=== PATIENT | female | born 1935 | race African-American/Black ===

== ENCOUNTER 2017-07-02 05:41 | Emergency (ER) | payer MEDICARE, OTHER ==
[~2017-07-02] VITALS: Ht 152.4 cm; Wt 50.3 kg
[~2017-07-02 05:41] MED LIST: ACET325T16 PO; BYSTOLIC10 MG PO; CLIN150C14 PO; DOCU100C28 PO; ESTR42.53 VG; FLUT16SP NS; HYDR-2762 PO; HYDR-2867 PO; HYDR-971 PO; HYDR10SY16 PO; HYDR10TA2 PO; LEVO500T8 PO; LEVO75TA PO; LIDO5JEL3 TP; LINA145C PO; LISI10TA2 PO; LORA10TA68 PO; LUBI8CAP4 PO; METR500T8 PO; NIFE90TA PO; NIFE90TA9 PO; OMEP20TA8 PO; ONDA4TAB7 PO; OXYC1TAB8 PO; POLY17PO3 PO; POTA10TA12 PO; PSYL1PAC7 PO; SENN1TAB61 PO; TAMO20TA PO
[2017-07-02 06:17] LABS: BILIRUBIN,URINE NEGATIVE (NEG); GLUCOSE,URINE NEGATIVE (NEG); NITRITE,URINE NEGATIVE (NEG); PH,URINE 7.5; PROTEIN,URINE NEGATIVE (NEG-TRACE); UROBILINOGEN,URINE 0.2 mg/dL (0.2 mg/dL)
[2017-07-02] MEDS ORDERED: fentaNYL PF VIAL 100 MCG/2 ML VIAL ONE (06:22)
[2017-07-02] MEDS ORDERED: ONDANSETRON PF 4 MG/2 ML VIAL. ONE (06:22)
--- NOTE | 2017-07-02 06:23 | PHYS DOC ---
Past Medical History Past Medical History: Arthritis, Cancer, Constipation, Hypertension Additional Past Medical Histor: IRREGULAR HEARTBEAT, PROLAPSED BLADDER, ULCERS , THYROID DZ Past Surgical History: Other Additional Past Surgical Histo: PARTIAL HYSTERECTOMY, RECENT BLADDER SLING SURGERY, L BREAST MASTECTOMY Alcohol Use: None Drug Use: None Adult General Chief Complaint Chief Complaint: MULTIPLE COMPLAINTS HPI HPI Patient is a 82 year old female presenting to the emergency department for primary complaints of rectal pain and lower abdominal pain. She says that she has had several hard large bowel movements past several days now her rectum is quite sore. She says that she thinks she tore something that she has not seen any blood in her stool. He says that she has lower abdominal pain with dysuria and thinks that she has a urinary tract infection. There is been no fevers chills nausea vomiting. She says that she will not allow me to examine her rectum. I was able to convince her to let me look externally but she would not allow me to do a proper rectal exam. Looking through the records it appears that she had a fecal impaction in January 2016 that required operating room disimpaction. Patient is in no obvious distress with normal vital signs. Review of Systems Review of Systems Constitutional: Denies fever or chills [] Respiratory: Denies cough or shortness of breath [] Cardiovascular: No additional information not addressed in HPI [] GI: + abdominal pain. No nausea, vomiting, bloody stools or diarrhea [] : Denies dysuria or hematuria [] Musculoskeletal: Denies back pain or joint pain [] Integument: Denies rash or skin lesions [] Neurologic: Denies headache, focal weakness or sensory changes [] Current Medications Current Medications Current Medications Medications (Trade) Dose Ordered Sig/[facility] Start Time Stop Time Status Last Admin Dose Admin Fentanyl Citrate (Fentanyl 2ml Vial) 100 mcg STK-MED ONCE 07/02/17 06:22 07/02/17 06:23 DC Glycerin (Sani-Supp Adult) 1 supp 1X ONCE 07/02/17 08:00 07/02/17 08:01 DC 07/02/17 08:13 1 SUPP Info (Do NOT chart on this entry -- for MONITORING) 1 each PRN DAILY PRN 07/02/17 06:30 07/04/17 06:29 Iohexol (Omnipaque 300 Mg/ml) 75 ml 1X ONCE 07/02/17 07:00 07/02/17 07:01 DC 07/02/17 07:13 75 ML Lidocaine HCl (Glydo (Lidocaine) Jelly) 1 kalyan 1X ONCE 07/02/17 08:00 07/02/17 08:01 DC 07/02/17 08:12 1 KALYAN Ondansetron HCl (Zofran) 4 mg STK-MED ONCE 07/02/17 06:22 07/02/17 06:23 DC Sodium Chloride 1,000 ml @ 1,000 mls/hr 1X ONCE 07/02/17 07:00 07/02/17 07:59 DC 07/02/17 06:26 1,000 MLS/HR Allergies Allergies Allergies Coded Allergies Type Severity Reaction Last Updated Verified amoxicillin trihydrate Allergy Intermediate Hives 01/23/16 Yes metronidazole Allergy Intermediate Nausea and Vomiting 01/23/16 Yes potassium clavulanate Allergy Intermediate Hives 01/23/16 Yes ranitidine Allergy Intermediate 07/02/17 Yes Physical Exam Physical Exam Constitutional: Well developed, well nourished, no acute distress, non-toxic appearance. [] Neck: Normal range of motion, no tenderness, supple, no stridor. [] Cardiovascular:Heart rate regular rhythm, no murmur [] Lungs & Thorax: Bilateral breath sounds clear to auscultation [] Abdomen: Bowel sounds normal, soft, diffuse lower abd tenderness, no rebound or guarding, no masses, no pulsatile masses. External rectal exam revealed no obvious anal fissure. Skin: Warm, dry, no erythema, no rash. [] Back: No tenderness, no CVA tenderness. [] Extremities: No tenderness, no cyanosis, no clubbing, ROM intact, no edema. [] Neurologic: Alert and oriented X 3, normal motor function, normal sensory function, no focal deficits noted. [] Current Patient Data Vital Signs Vital Signs Date Time Temp Pulse Resp B/P (MAP) Pulse Ox O2 Delivery O2 Flow Rate FiO2 07/02/17 08:24 57 21 175/81 (112) 97 Room Air 07/02/17 06:00 98.1 98.1 Lab Values Laboratory Tests Test 07/02/17 06:00 07/02/17 06:20 Urine Collection Type Unknown Urine Color Yellow Urine Clarity Clear Urine pH 7.5 Urine Specific [place] 1.020 Urine Protein Negative mg/dL (NEG-TRACE) Urine Glucose (UA) Negative mg/dL (NEG) Urine Ketones (Stick) Negative mg/dL (NEG) Urine Blood Negative (NEG) Urine Nitrite Negative (NEG) Urine Bilirubin Negative (NEG) Urine Urobilinogen Dipstick 0.2 mg/dL (0.2 mg/dL) Urine Leukocyte Esterase Negative (NEG) Urine RBC 1-2 /HPF (0-2) Urine WBC 1-4 /HPF (0-4) Urine Squamous Epithelial Cells Mod /LPF Urine Bacteria Few /HPF (0-FEW) Urine Mucus Slight /LPF White Blood Count 5.6 x10^3/uL (4.0-11.0) Red Blood Count 3.67 x10^6/uL (3.50-5.40) Hemoglobin 11.0 g/dL (12.0-15.5) L Hematocrit 33.7 % (36.0-47.0) L Mean Corpuscular Volume 92 fL (79-100) Mean Corpuscular Hemoglobin 30 pg (25-35) Mean Corpuscular Hemoglobin Concent 33 g/dL (31-37) Red Cell Distribution Width 14.8 % (11.5-14.5) H Platelet Count 199 x10^3/uL (140-400) Neutrophils (%) (Auto) 63 % (31-73) Lymphocytes (%) (Auto) 26 % (24-48) Monocytes (%) (Auto) 10 % (0-9) H Eosinophils (%) (Auto) 1 % (0-3) Basophils (%) (Auto) 1 % (0-3) Neutrophils # (Auto) 3.5 x10^3uL (1.8-7.7) Lymphocytes # (Auto) 1.4 x10^3/uL (1.0-4.8) Monocytes # (Auto) 0.6 x10^3/uL (0.0-1.1) Eosinophils # (Auto) 0.0 x10^3/uL (0.0-0.7) Basophils # (Auto) 0.0 x10^3/uL (0.0-0.2) Prothrombin Time 14.0 SEC (11.7-14.0) Prothrombin Time INR 1.2 (0.8-1.1) H PTT 28 SEC (24-38) Sodium Level 142 mmol/L (136-145) Potassium Level 5.6 mmol/L (3.5-5.1) H Chloride Level 104 mmol/L (98-107) Carbon Dioxide Level 31 mmol/L (21-32) Anion Gap 7 (6-14) Blood Urea Nitrogen 14 mg/dL (7-20) Creatinine 0.7 mg/dL (0.6-1.0) Estimated GFR (Cockcroft-Gault) 97.4 BUN/Creatinine Ratio 20 (6-20) Glucose Level 92 mg/dL (70-99) Calcium Level 9.4 mg/dL (8.5-10.1) Magnesium Level 2.0 mg/dL (1.8-2.4) Total Bilirubin 0.5 mg/dL (0.2-1.0) Aspartate Amino Transferase (AST) 35 U/L (15-37) Alanine Aminotransferase (ALT) 13 U/L (14-59) L Alkaline Phosphatase 35 U/L (46-116) L Total Protein 7.5 g/dL (6.4-8.2) Albumin 3.9 g/dL (3.4-5.0) Albumin/Globulin Ratio 1.1 (1.0-1.7) Laboratory Tests 07/02/17 06:20 Laboratory Tests 07/02/17 06:20 EKG EKG [] Radiology/Procedures Radiology/Procedures CT of the abdomen and pelvis with contrast, 07/02/2017: History: Rectal pain after bowel movement Multidetector CT imaging was performed following an IV bolus injection of iodinated contrast material. No oral contrast material was administered for this study. Comparison is made to a study from 10/27/2015. There are unchanged small cysts in both lobes of the liver. The gallbladder is unremarkable. No bile duct dilatation is seen. There is a paucity of intra-abdominal fat the abdominal organs. No pancreatic abnormality is detected. The spleen is of normal size. No renal abnormality is detected. There is moderate calcific plaquing of the abdominal aorta and its branches including the coronary arteries. There is no evidence of aortic aneurysm. No abdominal or pelvic adenopathy is seen. The bowel loops are not dilated. There is a small hiatal hernia. No free air or free fluid is evident in the abdomen or pelvis. There are moderate multilevel degenerative changes in the spine. There is a mild spondylolisthesis at L3-4 due to facet joint arthropathy. IMPRESSION: 1. Miscellaneous chronic findings as described above. 2. No acute abdominal or pelvic abnormality is detected. PQRS Compliance Statement: One or more of the following individualized dose reduction techniques were utilized for this examination: 1. Automated exposure control 2. Adjustment of the mA and/or kV according to patient size 3. Use of iterative reconstruction technique DICTATED and SIGNED BY: JOHN FREEMAN MD DATE: 07/02/17804 Course & Med Decision Making Course & Med Decision Making Patient with nonspecific lower abdominal pain and constipation. Given her age will go ahead and do a CT to ensure there is no acute emergencies. Patient's workup showed no acute emergency. She is not obstructed clinically as she says she is still having BMs, gave her glycerine here and then will DC with anusol suppository as she may have internal hemorrhoid causing pain. She wants norco for her joints. Said she needs to take miralax if she is taking norco. Patient aware and agreeable with plan for DC and verbalized understanding of need or f/u(appt tomorrow with PCP) and strict ED return precautions discussed including worsening pain, fevers, vomiting, or other general concerns. Dragon Disclaimer Dragon Disclaimer This electronic medical record was generated, in whole or in part, using a voice recognition dictation system. Departure Departure Impression: Primary Impression: Fecal impaction Additional Impressions: Abdominal pain Constipation Referrals: WILBER TIERNEY MD (PCP) Patient Instructions: Constipation, Adult Additional Instructions: TAKE MIRALAX IF YOU ARE TAKING THE NORCO. FOLLOW WITH YOUR DOCTOR TOMORROW. THANK YOU! Scripts Hydrocodone/Apap 5-325 (NORCO 5-325 TABLET) 1 Each Tablet 1 TAB PO PRN Q6HRS Y for PAIN, #12 TAB 0 Refills Prov: ANIYAH PARSONS DO 07/02/17 Hydrocortisone Acetate (ANUSOL-HC) 25 Mg Supp.rect 1 SUPP RC BID, #6 SUPP Prov: ANIYAH PARSONS DO 07/02/17 Problem Qualifiers ANIYAH PARSONS DO Jul 02, 2017 06:23
[2017-07-02 06:26] LABS: BACTERIA,URINE FEW /HPF (0-FEW)
[2017-07-02 06:27] LABS: SQUAMOUS EPITHELIAL CELL,UR MOD /LPF
[2017-07-02 06:29] LABS: BASO % 1 % (0-3); EOS % 1 % (0-3); HEMATOCRIT 33.7 % (36.0-47.0); LYMPH # 1.4 x10^3/uL (1.0-4.8); LYMPH % 26 % (24-48); MEAN CORPUSCULAR HEMOGLOBIN 30 pg (25-35); MEAN CORPUSCULAR HGB CONC 33 g/dL (31-37); MEAN CORPUSCULAR VOLUME 92 fL (79-100); MONO % 10 % (0-9); NEUT % 63 % (31-73); PLATELET COUNT 199 x10^3/uL (140-400); RED BLOOD COUNT 3.67 x10^6/uL (3.50-5.40); RED CELL DISTRIBUTION WIDTH 14.8 % (11.5-14.5); WHITE BLOOD COUNT 5.6 x10^3/uL (4.0-11.0)
[2017-07-02] MEDS ORDERED: CONTRAST GIVEN MC PRN (06:30)
[2017-07-02 06:39] LABS: CALCIUM 9.4 mg/dL (8.5-10.1); CREATININE 0.7 mg/dL (0.6-1.0); GFR 97.4
[2017-07-02 06:44] LABS: ALBUMIN 3.9 g/dL (3.4-5.0); ALBUMIN/GLOBULIN RATIO 1.1 (1.0-1.7); TOTAL BILIRUBIN 0.5 mg/dL (0.2-1.0); TOTAL PROTEIN 7.5 g/dL (6.4-8.2)
[2017-07-02 06:50] LABS: INR 1.2 (0.8-1.1)
[2017-07-02 06:51] LABS: POTASSIUM 5.6 mmol/L (3.5-5.1)
[2017-07-02] MEDS ORDERED: IOHEXOL 300 MG/ML 75 ML VIAL IV ONE (07:00)
[2017-07-02] MEDS ORDERED: fentaNYL PF VIAL 100 MCG/2 ML VIAL IV ONE (07:00)
[2017-07-02] MEDS ORDERED: IV NORMAL SALINE 1000ML BAG 1,000 ML IV ONE (07:00)
[2017-07-02] MEDS ORDERED: ONDANSETRON PF 4 MG/2 ML VIAL. IV ONE (07:00)
[2017-07-02] MEDS ORDERED: LIDOCAINE 2% JELLY 6ML IN APPLICATOR. TP ONE (08:00)
[2017-07-02] MEDS ORDERED: GLYCERIN ADULT 1 SUPP.RECT. PR ONE (08:00)
--- NOTE | 2017-07-02 08:14 | RAD ---
CT of the abdomen and pelvis with contrast, 07/02/2017: History: Rectal pain after bowel movement Multidetector CT imaging was performed following an IV bolus injection of iodinated contrast material. No oral contrast material was administered for this study. Comparison is made to a study from 10/27/2015. There are unchanged small cysts in both lobes of the liver. The gallbladder is unremarkable. No bile duct dilatation is seen. There is a paucity of intra-abdominal fat the abdominal organs. No pancreatic abnormality is detected. The spleen is of normal size. No renal abnormality is detected. There is moderate calcific plaquing of the abdominal aorta and its branches including the coronary arteries. There is no evidence of aortic aneurysm. No abdominal or pelvic adenopathy is seen. The bowel loops are not dilated. There is a small hiatal hernia. No free air or free fluid is evident in the abdomen or pelvis. There are moderate multilevel degenerative changes in the spine. There is a mild spondylolisthesis at L3-4 due to facet joint arthropathy. IMPRESSION: 1. Miscellaneous chronic findings as described above. 2. No acute abdominal or pelvic abnormality is detected. PQRS Compliance Statement: One or more of the following individualized dose reduction techniques were utilized for this examination: 1. Automated exposure control 2. Adjustment of the mA and/or kV according to patient size 3. Use of iterative reconstruction technique
[2017-07-02] MEDS ORDERED: HYDR25SU18 RC (08:35)
[2017-07-02] MEDS ORDERED: HYDR-971 PO (08:35)
[2017-07-02 09:25] VITALS: BP 193/95
== END 2017-07-02 10:35 | disposition home or self-care (01) ==
LOC: ER 05:41
DX: K56.41 Fecal impaction (principal); M19.90 Unspecified osteoarthritis, unspecified site; I10 Essential (primary) hypertension; E07.9 Disorder of thyroid, unspecified; Z90.711 Acquired absence of uterus with remaining cervical stump; Z90.12 Acquired absence of left breast and nipple; Z88.1 Allergy status to other antibiotic agents; Z88.8 Allergy status to other drugs, medicaments and biological substances
CPT/HCPCS: 36415; 74177; 80053; 81001; 83735; 85025; 85610; 85730; 96361; 96374; 96375; 99285; J2405; J3010; J7030; Q9967

== ENCOUNTER 2018-10-10 03:14 | Emergency (ER) | payer MEDICARE, OTHER ==
[~2018-10-10] VITALS: Ht 154.9 cm; Wt 47.6 kg
[~2018-10-10 03:14] MED LIST changes: -HYDR-2762 PO; +HYDR-2765 PO; +HYDR-3164 PO; -HYDR-971 PO; +HYDR25SU18 RC; +METR-84 PO; -METR500T8 PO; +POLY17PO28 PO; -POLY17PO3 PO
[2018-10-10] MEDS ORDERED: MORPHINE SULFATE 4 MG/ML VIAL. IM ONE (04:30)
[2018-10-10 05:05] LABS: BILIRUBIN,URINE NEGATIVE (NEG); CLARITY,URINE CLEAR; COLOR,URINE YELLOW; NITRITE,URINE NEGATIVE (NEG); PH,URINE 7.5; PROTEIN,URINE NEGATIVE (NEG-TRACE); UROBILINOGEN,URINE 0.2 mg/dL (0.2 mg/dL)
[2018-10-10] MEDS ORDERED: HYDR25SU18 RC (05:08)
[2018-10-10] MEDS ORDERED: HYDR-3164 PO (05:08)
[2018-10-10 05:17] LABS: BACTERIA,URINE FEW /HPF (0-FEW); RBC,URINE OCC /HPF (0-2); WBC,URINE OCC /HPF (0-4)
[2018-10-10 05:18] LABS: SQUAMOUS EPITHELIAL CELL,UR FEW /LPF
[2018-10-10] MEDS ORDERED: amLODIPine BESYLATE 5 MG TABLET PO ONE (05:30)
[2018-10-10 05:36] VITALS: BP 222/92
--- NOTE | 2018-10-10 05:43 | PHYS DOC ---
Past Medical History Past Medical History: Arthritis, Cancer, Constipation, Hypertension Additional Past Medical Histor: IRREGULAR HEARTBEAT, PROLAPSED BLADDER, ULCERS , THYROID DZ Past Surgical History: Other Additional Past Surgical Histo: PARTIAL HYSTERECTOMY, RECENT BLADDER SLING SURGERY, L BREAST MASTECTOMY Alcohol Use: None Drug Use: None Adult General Chief Complaint Chief Complaint: HEMORRHOIDS HPI HPI Patient is a 83 year old female who is presenting with rectal pain as well as constipation. She says that she has little balls of stool that come out she says that in addition she's been having back pain and hip pain for the last several months but is slowly getting worse she takes pain medication she takes stool softener she has had rectal pain and a long-standing basis over she was worried about the small balls of stool. No vomiting no abdominal pain just the pain in the rectal area. She does have a history of a fecal impaction that required exam under anesthesia she also has a history of a cystocele that was treated surgically Review of Systems Review of Systems Constitutional: Denies fever or chills [] Eyes: Denies change in visual acuity, redness, or eye pain [] HENT: Denies nasal congestion or sore throat [] Respiratory: Denies cough or shortness of breath [] Integument: Denies rash or skin lesions [] All other systems were reviewed and found to be within normal limits, except as documented in this note. Current Medications Current Medications Current Medications Medications (Trade) Dose Ordered Sig/Taj Start Time Stop Time Status Last Admin Dose Admin Amlodipine Besylate (Norvasc) 10 mg 1X ONCE 10/10/18 05:30 10/10/18 05:31 DC 10/10/18 05:36 10 MG Morphine Sulfate (Morphine Sulfate) 4 mg 1X ONCE 10/10/18 04:30 10/10/18 04:31 DC 10/10/18 04:09 4 MG Allergies Allergies Allergies Coded Allergies Type Severity Reaction Last Updated Verified amoxicillin trihydrate Allergy Intermediate Hives 01/23/16 Yes metronidazole Allergy Intermediate Nausea and Vomiting 01/23/16 Yes potassium clavulanate Allergy Intermediate Hives 01/23/16 Yes ranitidine Allergy Intermediate 07/02/17 Yes Physical Exam Physical Exam Constitutional: Well developed, well nourished, no acute distress, non-toxic appearance. [] HENT: Normocephalic, atraumatic, bilateral external ears normal, oropharynx moist, no oral exudates, nose normal. [] Eyes: PERRLA, EOMI, conjunctiva normal, no discharge. [] Neck: Normal range of motion, no tenderness, supple, no stridor. [] Pulmonary: Normal respiratory effort no increased work of breathing no obvious chest wall trauma Abdomen: Bowel sounds normal, soft, no tenderness, no masses, no pulsatile masses. [] Rectal exam: There was some abnormal external anal anatomy some decreased landmarks noted. After IM morphine patient consented to a rectal examination and I did perform this it was somewhat difficult due to patient cooperation however I did not appreciate any significant fecal impaction there may have been a palpable internal hemorrhoid it was a difficult exam overall. Skin: Warm, dry, no erythema, no rash. [] Back: Diffuse tenderness throughout no step-off or focal finding Extremities: No tenderness, no cyanosis, no clubbing, ROM intact, 2+ edema noted Neurologic: Alert and oriented X 3, normal motor function, normal sensory function, no focal deficits noted. [] Psychologic: Affect normal, judgement normal, mood normal. [] Current Patient Data Vital Signs Vital Signs Date Time Temp Pulse Resp B/P (MAP) Pulse Ox O2 Delivery O2 Flow Rate FiO2 10/10/18 05:36 125 222/92 10/10/18 04:09 20 10/10/18 03:15 98.0 96 Room Air 98.0 Lab Values Laboratory Tests Test 10/10/18 04:31 Urine Collection Type Unknown Urine Color Yellow Urine Clarity Clear Urine pH 7.5 Urine Specific [place] <=1.005 Urine Protein Negative mg/dL (NEG-TRACE) Urine Glucose (UA) Negative mg/dL (NEG) Urine Ketones (Stick) Negative mg/dL (NEG) Urine Blood Negative (NEG) Urine Nitrite Negative (NEG) Urine Bilirubin Negative (NEG) Urine Urobilinogen Dipstick 0.2 mg/dL (0.2 mg/dL) Urine Leukocyte Esterase Negative (NEG) Urine RBC Occ /HPF (0-2) Urine WBC Occ /HPF (0-4) Urine Squamous Epithelial Cells Few /LPF Urine Bacteria Few /HPF (0-FEW) EKG EKG [] Radiology/Procedures Radiology/Procedures [] Course & Med Decision Making Course & Med Decision Making Pertinent Labs and Imaging studies reviewed. (See chart for details) []Patient had frequent urination the emergency room the bladder scan did show just a small amount of urine remaining approximately 150 ML I don't think that this is enough for Glynn catheter. No fecal impaction was identified on my emergency room rectal examination. The patient did have high blood pressure I gave her dose of amlodipine in the ER this was likely pain related I recommended that she follow-up with her doctor within 1 week to check this again. I will give her prescription for Anusol in case of an internal hemorrhoid which is a possibility she wanted some more pain medications were given her a few days' worth of [place] as well and I recommended that she continue her stool softeners 2. At this point time I think that she has had recurrent visits for various types of rectal pain is likely subacute issue no obvious acute emergency was identified otherwise I don't think that she needs imaging at this time her abdomen was nontender Dragon Disclaimer Dragon Disclaimer This electronic medical record was generated, in whole or in part, using a voice recognition dictation system. Departure Departure Impression: Primary Impression: Elevated blood pressure reading Additional Impression: Constipation Disposition: 01 HOME, SELF-CARE Condition: STABLE Patient Instructions: Constipation, Adult Scripts Hydrocortisone Acetate (ANUSOL-HC) 25 Mg Supp.rect 1 SUPP RC BID, #14 SUPP Prov: EVANGELINA MOROCHO MD 10/10/18 Hydrocodone/Apap 5-325 (NORCO 5-325 TABLET) 1 Each Tablet 1-2 EACH PO PRN Q6HRS PRN for PAIN, #15 as needed for pain Prov: EVANGELINA MOROCHO MD 10/10/18 Problem Qualifiers EVANGELINA MOROCHO MD Oct 10, 2018 05:43
== END 2018-10-10 05:43 | disposition home or self-care (01) ==
LOC: ER 03:14
DX: K59.00 Constipation, unspecified (principal); I10 Essential (primary) hypertension; M19.90 Unspecified osteoarthritis, unspecified site; Z90.710 Acquired absence of both cervix and uterus; Z90.10 Acquired absence of unspecified breast and nipple; Z88.1 Allergy status to other antibiotic agents; Z88.8 Allergy status to other drugs, medicaments and biological substances
CPT/HCPCS: 81001; 96372; 99283; J2270

== ENCOUNTER 2018-12-22 17:34 | Inpatient (IN) | payer MEDICARE, OTHER ==
[~2018-12-22] VITALS: Ht 152.4 cm; Wt 52.4 kg
[~2018-12-22 17:34] MED LIST changes: -LINA145C PO; +LINZESS145 MCG PO; +METR-34 PO; -METR-84 PO
[2018-12-22 18:45] LABS: BASO % 0 % (0-3); EOS % 1 % (0-3); HEMATOCRIT 35.1 % (36.0-47.0); HEMOGLOBIN 11.3 g/dL (12.0-15.5); LYMPH # 1.2 x10^3/uL (1.0-4.8); LYMPH % 19 % (24-48); MEAN CORPUSCULAR HEMOGLOBIN 30 pg (25-35); MEAN CORPUSCULAR HGB CONC 32 g/dL (31-37); MEAN CORPUSCULAR VOLUME 92 fL (79-100); MONO # 0.5 x10^3/uL (0.0-1.1); MONO % 8 % (0-9); NEUT # 4.3 x10^3uL (1.8-7.7); NEUT % 72 % (31-73); PLATELET COUNT 234 x10^3/uL (140-400); RED CELL DISTRIBUTION WIDTH 14.3 % (11.5-14.5)
[2018-12-22 18:47] LABS: BILIRUBIN,URINE NEGATIVE (NEG); CLARITY,URINE CLEAR; COLOR,URINE YELLOW; NITRITE,URINE NEGATIVE (NEG); PH,URINE 7.5; PROTEIN,URINE NEGATIVE (NEG-TRACE); UROBILINOGEN,URINE 0.2 mg/dL (0.2 mg/dL)
[2018-12-22 18:51] LABS: BACTERIA,URINE 0 /HPF (0-FEW); RBC,URINE 0 /HPF (0-2); SQUAMOUS EPITHELIAL CELL,UR MOD /LPF; WBC,URINE 0 /HPF (0-4)
[2018-12-22 18:55] LABS: PROTHROMBIN TIME PATIENT 13.4 SEC (11.7-14.0)
[2018-12-22 18:56] LABS: CALCIUM 10.1 mg/dL (8.5-10.1); CREATININE 0.7 mg/dL (0.6-1.0); GFR 97.2; POTASSIUM 4.8 mmol/L (3.5-5.1)
[2018-12-22 19:02] LABS: ALBUMIN 3.8 g/dL (3.4-5.0); TOTAL BILIRUBIN 0.4 mg/dL (0.2-1.0); TOTAL PROTEIN 7.7 g/dL (6.4-8.2)
--- NOTE | 2018-12-22 20:35 | RAD ---
Bilateral lower extremity venous ultrasound: History: Bilateral lower extremity swelling and edema Sonographic evaluation including grayscale, color flow and spectral Doppler analysis of the deep veins of the lower extremities was performed. The femoral and popliteal veins demonstrate normal compressibility and normal responses to distal augmentation maneuvers. Color imaging of those vessels shows no evidence of intraluminal clot. The visualized deep veins in both calves are patent. There is superficial edema in both lower extremities more on the left than on the right IMPRESSION: 1. There is no sonographic evidence of deep vein thrombosis in either lower extremity. 2. Bilateral lower extremity edema. Electronically signed by: Sly Caballero MD (12/22/2018 8:30 PM) [facility]
--- NOTE | 2018-12-22 21:03 | PHYS DOC ---
Past Medical History Past Medical History: Arthritis, Cancer, Constipation, Hypertension, Other Additional Past Medical Histor: IRREGULAR HEARTBEAT, PROLAPSED BLADDER, ULCERS , THYROID DZ Past Surgical History: Other Additional Past Surgical Histo: PARTIAL HYSTERECTOMY,RECENT BLADDER SLING SURGERY,L BREAST MASTECTOMY Alcohol Use: None Drug Use: None Adult General Chief Complaint Chief Complaint: LOWER EXTREMITY EDEMA HPI HPI Patient is a 83 year old [f__sex] who presents with [] Review of Systems Review of Systems Constitutional: Denies fever or chills [] Eyes: Denies change in visual acuity, redness, or eye pain [] HENT: Denies nasal congestion or sore throat [] Respiratory: Denies cough or shortness of breath [] Cardiovascular: No additional information not addressed in HPI [] GI: Denies abdominal pain, nausea, vomiting, bloody stools or diarrhea [] : Denies dysuria or hematuria [] Musculoskeletal: Denies back pain or joint pain [] Integument: Denies rash or skin lesions [] Neurologic: Denies headache, focal weakness or sensory changes [] Endocrine: Denies polyuria or polydipsia [] All other systems were reviewed and found to be within normal limits, except as documented in this note. Current Medications Current Medications Current Medications Medications (Trade) Dose Ordered Sig/Taj Start Time Stop Time Status Last Admin Dose Admin Aspirin (Lima Aspirin) 325 mg 1X ONCE 12/22/18 21:30 12/22/18 21:31 DC 12/22/18 21:34 325 MG Furosemide (Lasix) 40 mg 1X ONCE 12/22/18 21:30 12/22/18 21:31 DC 12/22/18 21:35 40 MG Morphine Sulfate (Morphine Sulfate) 4 mg Q4HRS PRN 12/22/18 21:45 12/23/18 21:44 Allergies Allergies Allergies Coded Allergies Type Severity Reaction Last Updated Verified amoxicillin trihydrate Allergy Intermediate Hives 01/23/16 Yes metronidazole Allergy Intermediate Nausea and Vomiting 01/23/16 Yes potassium clavulanate Allergy Intermediate Hives 01/23/16 Yes ranitidine Allergy Intermediate 07/02/17 Yes Physical Exam Physical Exam Constitutional: Well developed, well nourished, no acute distress, non-toxic appearance. [] HENT: Normocephalic, atraumatic, bilateral external ears normal, oropharynx moist, no oral exudates, nose normal. [] Eyes: PERRLA, EOMI, conjunctiva normal, no discharge. [] Neck: Normal range of motion, no tenderness, supple, no stridor. [] Cardiovascular:Heart rate regular rhythm, no murmur [] Lungs & Thorax: Bilateral breath sounds clear to auscultation [] Abdomen: Bowel sounds normal, soft, no tenderness, no masses, no pulsatile masses. [] Skin: Warm, dry, no erythema, no rash. [] Back: No tenderness, no CVA tenderness. [] Extremities: No tenderness, no cyanosis, no clubbing, ROM intact, no edema. [] Neurologic: Alert and oriented X 3, normal motor function, normal sensory function, no focal deficits noted. [] Psychologic: Affect normal, judgement normal, mood normal. [] Current Patient Data Vital Signs Vital Signs Date Time Temp Pulse Resp B/P (MAP) Pulse Ox O2 Delivery O2 Flow Rate FiO2 12/22/18 21:36 16 99 Room Air 12/22/18 19:45 58 205/84 (124) 12/22/18 17:34 97.6 97.6 Lab Values Laboratory Tests Test 12/22/18 17:45 12/22/18 18:28 Urine Collection Type Unknown Urine Color Yellow Urine Clarity Clear Urine pH 7.5 Urine Specific [place] <=1.005 Urine Protein Negative mg/dL (NEG-TRACE) Urine Glucose (UA) Negative mg/dL (NEG) Urine Ketones (Stick) Negative mg/dL (NEG) Urine Blood Negative (NEG) Urine Nitrite Negative (NEG) Urine Bilirubin Negative (NEG) Urine Urobilinogen Dipstick 0.2 mg/dL (0.2 mg/dL) Urine Leukocyte Esterase Negative (NEG) Urine RBC 0 /HPF (0-2) Urine WBC 0 /HPF (0-4) Urine Squamous Epithelial Cells Mod /LPF Urine Bacteria 0 /HPF (0-FEW) White Blood Count 6.0 x10^3/uL (4.0-11.0) Red Blood Count 3.80 x10^6/uL (3.50-5.40) Hemoglobin 11.3 g/dL (12.0-15.5) L Hematocrit 35.1 % (36.0-47.0) L Mean Corpuscular Volume 92 fL (79-100) Mean Corpuscular Hemoglobin 30 pg (25-35) Mean Corpuscular Hemoglobin Concent 32 g/dL (31-37) Red Cell Distribution Width 14.3 % (11.5-14.5) Platelet Count 234 x10^3/uL (140-400) Neutrophils (%) (Auto) 72 % (31-73) Lymphocytes (%) (Auto) 19 % (24-48) L Monocytes (%) (Auto) 8 % (0-9) Eosinophils (%) (Auto) 1 % (0-3) Basophils (%) (Auto) 0 % (0-3) Neutrophils # (Auto) 4.3 x10^3uL (1.8-7.7) Lymphocytes # (Auto) 1.2 x10^3/uL (1.0-4.8) Monocytes # (Auto) 0.5 x10^3/uL (0.0-1.1) Eosinophils # (Auto) 0.0 x10^3/uL (0.0-0.7) Basophils # (Auto) 0.0 x10^3/uL (0.0-0.2) Prothrombin Time 13.4 SEC (11.7-14.0) Prothrombin Time INR 1.1 (0.8-1.1) PTT 27 SEC (24-38) Sodium Level 143 mmol/L (136-145) Potassium Level 4.8 mmol/L (3.5-5.1) Chloride Level 105 mmol/L (98-107) Carbon Dioxide Level 30 mmol/L (21-32) Anion Gap 8 (6-14) Blood Urea Nitrogen 17 mg/dL (7-20) Creatinine 0.7 mg/dL (0.6-1.0) Estimated GFR (Cockcroft-Gault) 97.2 BUN/Creatinine Ratio 24 (6-20) H Glucose Level 93 mg/dL (70-99) Calcium Level 10.1 mg/dL (8.5-10.1) Total Bilirubin 0.4 mg/dL (0.2-1.0) Aspartate Amino Transferase (AST) 25 U/L (15-37) Alanine Aminotransferase (ALT) 12 U/L (14-59) L Alkaline Phosphatase 47 U/L (46-116) Creatine Kinase 166 U/L (26-192) Creatine Kinase MB (Mass) 2.0 ng/mL (0.0-3.6) Creatine Kinase MB Relative Index 1.2 % (0-4) Troponin I Quantitative 0.026 ng/mL (0.000-0.055) WN-Ggx-G-Type Natriuretic Peptide 4894 pg/mL (0-449) H Total Protein 7.7 g/dL (6.4-8.2) Albumin 3.8 g/dL (3.4-5.0) Albumin/Globulin Ratio 1.0 (1.0-1.7) Laboratory Tests 12/22/18 18:28 Laboratory Tests 12/22/18 18:28 EKG EKG @1844 NSR at 60bpm, NO ST elevation, compared to prior EKG per Cardioserver from 01/23/16 without significant change. Radiology/Procedures Radiology/Procedures PROCEDURE: VENOUS LOWER EXT BILATERAL Bilateral lower extremity venous ultrasound: History: Bilateral lower extremity swelling and edema Sonographic evaluation including grayscale, color flow and spectral Doppler analysis of the deep veins of the lower extremities was performed. The femoral and popliteal veins demonstrate normal compressibility and normal responses to distal augmentation maneuvers. Color imaging of those vessels shows no evidence of intraluminal clot. The visualized deep veins in both calves are patent. There is superficial edema in both lower extremities more on the left than on the right IMPRESSION: 1. There is no sonographic evidence of deep vein thrombosis in either lower extremity. 2. Bilateral lower extremity edema. Electronically signed by: Sly Caballero MD (12/22/2018 8:30 PM) [facility] Course & Med Decision Making Course & Med Decision Making Pertinent Labs and Imaging studies reviewed. (See chart for details) [] Dragon Disclaimer Dragon Disclaimer This electronic medical record was generated, in whole or in part, using a voice recognition dictation system. Departure Departure Impression: Primary Impression: Intractable pain Additional Impression: Bilateral lower extremity edema Disposition: ADMITTED INPATIENT Admitting Physician: Other (Dr. Boo) Condition: STABLE Referrals: WILBER TIERNEY MD (PCP) Problem Qualifiers BRAVO CHA DO Dec 22, 2018 21:03
[2018-12-22] MEDS ORDERED: MORPHINE SULFATE 4 MG/ML VIAL. IV ONE (21:30)
[2018-12-22] MEDS ORDERED: ASPIRIN 325 MG TABLET PO ONE (21:30)
[2018-12-22] MEDS ORDERED: FUROSEMIDE 40 MG/4 ML VIAL. IVP ONE (21:30)
--- NOTE | 2018-12-22 22:34 | NUR ---
The patient, KYRIE ROGEL, 83 y/o, F admitted by SARAH YAN MD, was given written information regarding hospital policies, unit procedures and contact persons. Valuables were checked and left with her.
[2018-12-22 23:00] VITALS: BP 180/98
--- NOTE | 2018-12-23 00:16 | RAD ---
Portable AP chest. HISTORY: Cough AP view was taken of the chest. There is marked arthritis in both shoulders especially on the right. The heart is upper normal in size. The aorta is mildly ectatic and tortuous. There are mild interstitial changes in the upper lobes similar to recent studies. A confluent pneumonia is not identified. There is a hiatus hernia behind the heart. IMPRESSION: 1. Marked arthritis in the shoulders. 2. Moderate hiatus hernia. 3. Mild interstitial lung disease without a confluent pneumonia. Electronically signed by: Sly Caballero MD (12/23/2018 12:11 AM) [facility]
[2018-12-23] MEDS ORDERED: OLME40TA12 PO (00:51)
[2018-12-23] MEDS ORDERED: TAMO20TA PO (00:51)
[2018-12-23] MEDS ORDERED: BYSTOLIC10 MG PO (00:51)
[2018-12-23] MEDS: MORPHINE SULFATE 4 MG/ML VIAL. IV PRN ×3 (01:11→11:00)
[2018-12-23 03:00] VITALS: BP 180/98
--- NOTE | 2018-12-23 05:21 | EKG ---
[facility] [address] [place] [address] Test Date: 2018-12-22 Test Time: 18:44:41 Pat Name: KYRIE ROGEL Department: Room: 528 1 Gender: F Community Service Worker: : 1935 Requested By: BRAVO CHA Order Number: [id number] Reading MD: Abundio Rene MD Measurements Intervals [place] Rate: 60 P: 39 CO: 170 QRS: 42 QRSD: 74 T: 51 QT: 426 QTc: 430 Interpretive Statements SINUS RHYTHM PROBABLE LVH NON-SPECIFIC ST/T CHANGES Electronically Signed On 12-23-2018 9:27:35 MATERIAL HANDLING TECHNICIAN by Abundio Rene MD
[2018-12-23 07:00] VITALS: BP 152/104
[2018-12-23 08:39] LABS: CALCIUM 9.8 mg/dL (8.5-10.1); CREATININE 0.9 mg/dL (0.6-1.0); GFR 72.7; MAGNESIUM 1.8 mg/dL (1.8-2.4); POTASSIUM 3.6 mmol/L (3.5-5.1)
[2018-12-23] MEDS ORDERED: FUROSEMIDE 40 MG/4 ML VIAL. IVP SCH (09:00)
[2018-12-23] MEDS ORDERED: HYDROCORTISONE ACETATE 25 MG SUPP.RECT ONE ×2 (09:00)
[2018-12-23] MEDS: POTASSIUM CHLORIDE 20 MEQ TABLET.ER. PO SCH (09:25)
--- NOTE | 2018-12-23 09:59 | CARD ---
MR#: [id number] Date of Study: 12/23/2018 Ordering Physician: JAZLYN FAYE, Referring Physician: SARAH YAN Tech: Shari Andres RDCS APPROVED REPORT EXAM: Two-dimensional and M-mode echocardiogram with Doppler and color Doppler. Other Information Quality : Good INDICATION Congestive Heart Failure 2D DIMENSIONS RVDd1.8 (2.9-3.5cm)Left Atrium(2D)2.4 (1.6-4.0cm) IVSd1.2 (0.7-1.1cm)Aortic Root(2D)2.8 (2.0-3.7cm) LVDd3.8 (3.9-5.9cm)LVOT Diameter2.0 (1.8-2.4cm) PWd1.2 (0.7-1.1cm)LVDs2.2 (2.5-4.0cm) FS (%) 30.0 %SV48.3 ml LVEF(%)60.0 (>50%) Aortic Valve AoV Peak Santiago.117.3cm/sAoV VTI21.7cm AO Peak GR.5.5mmHgLVOT VTI 18.55cm AO Mean GR.3mmHgAVA (VTI)2.60cm2 Mitral Valve MV E Mbsaudmd59.1cm/sMV DECEL QLGC902id MV A Nrutyewp892.2cm/sE/A Ratio0.6 TDI Lateral E' P. V3.54cm/sMedial E' P. V3.54cm/s E/Lateral E'18.1E/Medial E'18.1 Tricuspid Valve TR P. Esludsbg396cq/sRAP DRYXIIBT4agVw TR Peak Gr.37kxMwSYJP37ceBi Pulmonary Vein S1 Cfwaphsw20.6cm/sS2 Bvazinre52.18cm/s D2 Hhiezyql17.2cm/s LEFT VENTRICLE The left ventricle is normal size. There is moderate concentric left ventricular hypertrophy. The sys tolic function is mildly impaired. EF 50% There is normal LV segmental wall motion. Transmitral Doppl er flow pattern is Grade I-abnormal relaxation pattern. RIGHT VENTRICLE The right ventricle is normal size. The right ventricular systolic function is normal. ATRIA The left atrium size is normal. The right atrium size is normal. The interatrial septum is intact wit h no evidence for an atrial septal defect or patent foramen ovale as noted on 2-D or Doppler imaging. AORTIC VALVE The aortic valve is normal in structure and function. Doppler and Color Flow revealed no significant aortic regurgitation. There is no significant aortic valvular stenosis. MITRAL VALVE The mitral valve is calcified but opens well. There is no evidence of mitral valve prolapse. There is no mitral valve stenosis. Doppler and Color Flow revealed no mitral valve regurgitation noted. TRICUSPID VALVE The tricuspid valve is normal in structure and function. Doppler and Color Flow revealed trace tricus pid regurgitation. The PA pressure was estimated at 25 mmHg. There is no tricuspid valve stenosis. PULMONIC VALVE The pulmonary valve is normal in structure and function. Doppler and Color Flow revealed no pulmonic valvular regurgitation. There is no pulmonic valvular stenosis. GREAT VESSELS The aortic root is normal in size. The ascending aorta is normal in size. The IVC was not visualized. PERICARDIAL EFFUSION There is no evidence of significant pericardial effusion. Critical Notification Critical Value: No <Conclusion> The systolic function is mildly impaired. EF 50% There is normal LV segmental wall motion. Signed by : Abundio Rene, Electronically Approved : 12/23/2018 09:56:49
--- NOTE | 2018-12-23 11:03 | PDOC2 ---
CARDIAC CONSULT DATE OF CONSULT Date of Consult DATE: 12/23/18 TIME: 10:44 REASON FOR CONSULT Reason for Consult: Peripheral edema, concern for CHF REFERRING PHYSICIAN Referring Physician: Dr. Andino SOURCE Source: Chart review, Patient HISTORY OF PRESENT ILLNESS HISTORY OF PRESENT ILLNESS This is an 83 yo female who presented secondary to lower extremity edema. Has been presented for months. Worse recently. Feels as if her legs are heavy. Seems to be better in the morning, worse at night. Daughter reports she eats a lot of salt. Not on a diuretic at home. No previous h/o CHF. Denies any dizziness, chest pain, palpitations, SOA, diaphoresis, PND, or orthopnea. Has a history of breast CA. Diagnosed 5 years ago. Daughter reports she was supposed to be seeing her oncologist every 3 months, but has not been for over 2 years. Patient does state " I don't want anyone touching my heart". In clarification, patient does not want any further heart workup. This was confirmed with daughter Leticia. PAST MEDICAL HISTORY Cardiovascular: HTN Pulmonary: No pertinent hx CENTRAL NERVOUS SYSTEM: Periperal neuropathy, Other (no pertinent hx) GI: GERD Heme/Onc: Anemia NOS, Cancer (breast) Hepatobiliary: No pertinent hx Psych: Anxiety Musculoskeletal: Osteoarthritis Rheumatologic: No pertinent hx Infectious disease: No pertinent hx ENT: No pertinent hx Renal/: No pertinent hx Endocrine: Hypothyroidism Dermatology: No pertinent hx PAST SURGICAL HISTORY Past Surgical History: Hysterectomy, Colon Resection, Other (left mastectomy, left knee surgery) FAMILY HISTORY Family History: Diabetes, Hypertension SOCIAL HISTORY Smoke: No ALCOHOL: none Drugs: None Lives: with Family CURRENT MEDICATIONS CURRENT MEDICATIONS Current Medications Medications (Trade) Dose Ordered Sig/Taj Route PRN Reason Start Time Stop Time Status Last Admin Dose Admin Morphine Sulfate (Morphine Sulfate) 4 mg 1X ONCE IV 12/22/18 21:30 12/22/18 21:31 DC 12/22/18 21:36 Aspirin (Lima Aspirin) 325 mg 1X ONCE PO 12/22/18 21:30 12/22/18 21:31 DC 12/22/18 21:34 Furosemide (Lasix) 40 mg 1X ONCE IVP 12/22/18 21:30 12/22/18 21:31 DC 12/22/18 21:35 Morphine Sulfate (Morphine Sulfate) 4 mg Q4HRS PRN IV PAIN 12/22/18 21:45 12/23/18 21:44 12/23/18 05:31 Furosemide (Lasix) 40 mg [id number] IVP 12/23/18 09:00 12/23/18 09:26 Potassium Chloride (Klor-Con) 20 meq DAILYWBKFT PO 12/23/18 08:00 12/23/18 09:25 ALLERGIES ALLERGIES: Coded Allergies: amoxicillin trihydrate (Verified Allergy, Intermediate, Hives, 01/23/16) metronidazole (Verified Allergy, Intermediate, Nausea and Vomiting, 01/23/16 ) potassium clavulanate (Verified Allergy, Intermediate, Hives, 01/23/16) ranitidine (Verified Allergy, Intermediate, 07/02/17) ROS Review of System 14 point ROS conducted with pertinent positives noted above in HPI. PHYSICAL EXAM General: Alert, Oriented X3, Cooperative, No acute distress HEENT: Atraumatic, Mucous membr. moist/pink Lungs: Clear to auscultation, Normal air movement Heart: Regular rate, Normal S1, Normal S2, Other (2/6 systolic murmur ) Abdomen: Soft, No tenderness Extremities: Other (2+ bilateral LE edema ) Skin: No breakdown Neuro: Normal speech, Sensation intact Psych/Mental Status: Mental status NL, Mood NL MUSCULOSKELETAL: Osteoarthritic changes both hands VITALS VITALS Vital Signs Date Time Temp Pulse Resp B/P (MAP) Pulse Ox O2 Delivery O2 Flow Rate FiO2 12/23/18 08:00 Room Air 12/23/18 07:00 98.3 62 18 152/104 (120) 98 98.3 LABS Lab: Laboratory Tests Test 12/22/18 17:45 12/22/18 18:28 12/23/18 00:30 12/23/18 03:35 Urine Collection Type Unknown Urine Color Yellow Urine Clarity Clear Urine pH 7.5 Urine Specific [place] <=1.005 Urine Protein Negative mg/dL (NEG-TRACE) Urine Glucose (UA) Negative mg/dL (NEG) Urine Ketones (Stick) Negative mg/dL (NEG) Urine Blood Negative (NEG) Urine Nitrite Negative (NEG) Urine Bilirubin Negative (NEG) Urine Urobilinogen Dipstick 0.2 mg/dL (0.2 mg/dL) Urine Leukocyte Esterase Negative (NEG) Urine RBC 0 /HPF (0-2) Urine WBC 0 /HPF (0-4) Urine Squamous Epithelial Cells Mod /LPF Urine Bacteria 0 /HPF (0-FEW) White Blood Count 6.0 x10^3/uL (4.0-11.0) Red Blood Count 3.80 x10^6/uL (3.50-5.40) Hemoglobin 11.3 g/dL (12.0-15.5) Hematocrit 35.1 % (36.0-47.0) Mean Corpuscular Volume 92 fL (79-100) Mean Corpuscular Hemoglobin 30 pg (25-35) Mean Corpuscular Hemoglobin Concent 32 g/dL (31-37) Red Cell Distribution Width 14.3 % (11.5-14.5) Platelet Count 234 x10^3/uL (140-400) Neutrophils (%) (Auto) 72 % (31-73) Lymphocytes (%) (Auto) 19 % (24-48) Monocytes (%) (Auto) 8 % (0-9) Eosinophils (%) (Auto) 1 % (0-3) Basophils (%) (Auto) 0 % (0-3) Neutrophils # (Auto) 4.3 x10^3uL (1.8-7.7) Lymphocytes # (Auto) 1.2 x10^3/uL (1.0-4.8) Monocytes # (Auto) 0.5 x10^3/uL (0.0-1.1) Eosinophils # (Auto) 0.0 x10^3/uL (0.0-0.7) Basophils # (Auto) 0.0 x10^3/uL (0.0-0.2) Prothrombin Time 13.4 SEC (11.7-14.0) Prothromb Time International Ratio 1.1 (0.8-1.1) Activated Partial Thromboplast Time 27 SEC (24-38) Sodium Level 143 mmol/L (136-145) 144 mmol/L (136-145) Potassium Level 4.8 mmol/L (3.5-5.1) 3.6 mmol/L (3.5-5.1) Chloride Level 105 mmol/L (98-107) 103 mmol/L (98-107) Carbon Dioxide Level 30 mmol/L (21-32) 28 mmol/L (21-32) Anion Gap 8 (6-14) 13 (6-14) Blood Urea Nitrogen 17 mg/dL (7-20) 16 mg/dL (7-20) Creatinine 0.7 mg/dL (0.6-1.0) 0.9 mg/dL (0.6-1.0) Estimated GFR (Cockcroft-Gault) 97.2 72.7 BUN/Creatinine Ratio 24 (6-20) Glucose Level 93 mg/dL (70-99) 152 mg/dL (70-99) Calcium Level 10.1 mg/dL (8.5-10.1) 9.8 mg/dL (8.5-10.1) Total Bilirubin 0.4 mg/dL (0.2-1.0) Aspartate Amino Transf (AST/SGOT) 25 U/L (15-37) Alanine Aminotransferase (ALT/SGPT) 12 U/L (14-59) Alkaline Phosphatase 47 U/L (46-116) Creatine Kinase 166 U/L (26-192) Creatine Kinase MB (Mass) 2.0 ng/mL (0.0-3.6) Creatine Kinase MB Relative Index 1.2 % (0-4) Troponin I Quantitative 0.026 ng/mL (0.000-0.055) < 0.017 ng/mL (0.000-0.055) < 0.017 ng/mL (0.000-0.055) MK-Hej-T-Type Natriuretic Peptide 4894 pg/mL (0-449) Total Protein 7.7 g/dL (6.4-8.2) Albumin 3.8 g/dL (3.4-5.0) Albumin/Globulin Ratio 1.0 (1.0-1.7) Magnesium Level 1.8 mg/dL (1.8-2.4) Thyroid Stimulating Hormone (TSH) 0.097 uIU/mL (0.358-3.74) ECHOCARDIOGRAM ECHOCARDIOGRAM <Conclusion> The systolic function is mildly impaired. EF 50% There is normal LV segmental wall motion. ASSESSMENT/PLAN ASSESSMENT/PLAN 1. LE edema, chronic. Possible venous insuff component. Improved with diuresis. 2. Mild acute on chronic diastolic HF; Echo showed LVEF 50%. BNP Mildly elevated, but CXR without significant vascular congestion 3. Accelerated hypertension; improved, but remains elevated 4. Breast CA; s/p mastectomy. Has not followed up with oncologist in over 2 years. 5. Hypothyroidism; TSH 0.097. As per PCP Recommendation 2 Gm Na dietary restriction Angle Shearer consult TEDs Continue BB. Increase lisinopril for better BP control Does not want any further cardiac workup; confirmed this with daughter, Leticia. Convert to oral diuretics YOSELYN VARGAS APRN Dec 23, 2018 11:03
[2018-12-23 11:05] VITALS: BP 163/99
[2018-12-23] MEDS ORDERED: LIDOCAINE HCL TP PRN (11:15)
[2018-12-23] MEDS ORDERED: hydrOXYzine 10 MG TABLET PO PRN (11:45)
[2018-12-23] MEDS ORDERED: LISINOPRIL 10 MG TABLET PO SCH (12:00)
[2018-12-23] MEDS: FLUTICASONE 50MCG/NASAL SPRAY 16GM BOTTLE. NS SCH (12:00)
[2018-12-23] MEDS ORDERED: METOPROLOL TART IMMED RELEASE 50 MG TABLET. PO SCH (12:00)
[2018-12-23] MEDS: LOSARTAN POTASSIUM 50 MG TABLET. PO SCH (13:01)
[2018-12-23] MEDS: HYDROCORTISONE ACETATE 25 MG SUPP.RECT RC SCH ×2 (13:02→20:45)
[2018-12-23] MEDS: TAMOXIFEN 10 MG TABLET PO SCH (13:10)
[2018-12-23] MEDS ORDERED: LISINOPRIL 10 MG TABLET PO ONE (13:15)
[2018-12-23] MEDS: HYDROcodone/APAP 5/325MG 1 TAB TABLET PO PRN ×2 (14:48→20:49)
[2018-12-23] MEDS: LEVOTHYROXINE 75 MCG TABLET PO SCH (14:48)
[2018-12-23 14:49] VITALS: BP 114/66
[2018-12-23] MEDS: SENNOSIDES/DOCUSATE 8.6/50MG TABLET. PO PRN (15:18)
[2018-12-23] MEDS: POLYETHYLENE GLYCOL 3350 17 GM PACKET. PO PRN (15:18)
--- NOTE | 2018-12-23 16:57 | PDOC1 ---
History and Physical Date of Admission Date of Admission 12/23/2018 Identification/Chief Complaint Chief Complaint my legs are swollen Problems: (1) Bilateral lower extremity edema Source Source: Chart review, Patient History of Present Illness History of Present Illness Patient is on 83 -year-old female who comes today with history of several months of [place] of lower extremity edema. This apparently has been building up over the last couple months and yesterday she she was complaining of discomfort and due to the progressive nature of her symptoms she was brought by her family members to the emergency department to be evaluated. Patient denies paroxysmal nocturnal dyspnea she denies orthopnea she denies chest pain palpitations no symptoms of congestive heart failure were voiced by the patient. One thing she is adamant is about not having "more poking done" and she is unwilling to undergo further testing she relates to me. We were asked to admit the patient for cardiological evaluation given the lower extremity edema and a high BNP of 4800. Given the lack of symptoms most likely this is not related to cardiac etiology. Patient feels better compared to admission after diuresis, she seems to have chronic lymphedema, of note is that she has a history of breast cancer. She has had remission for a long time now. NO other complaints at the time of my visit. Past Medical History Cardiovascular: HTN Pulmonary: No pertinent hx CENTRAL NERVOUS SYSTEM: Periperal neuropathy, Other (no pertinent hx) GI: GERD Heme/Onc: Anemia NOS, Cancer (breast) Hepatobiliary: No pertinent hx Psych: Anxiety Rheumatologic: No pertinent hx Infectious disease: No pertinent hx ENT: No pertinent hx Renal/: No pertinent hx Endocrine: Hypothyroidism Dermatology: No pertinent hx Past Surgical History Past Surgical History: Hysterectomy, Colon Resection, Other (left mastectomy, left knee surgery) Family History Family History: Diabetes, Hypertension Social History Smoke: No ALCOHOL: none Drugs: None Current Problem List Problem List Problems Medical Problems: (1) Bilateral lower extremity edema Status: Acute (2) Intractable pain Status: Acute Current Medications Current Medications Current Medications Medications (Trade) Dose Ordered Sig/Taj Start Time Stop Time Status Last Admin Dose Admin Acetaminophen (Tylenol) 650 mg PRN Q6HRS PRN 12/23/18 11:15 Acetaminophen/ Hydrocodone Bitart (Lortab 5/325) 1 tab PRN Q6HRS PRN 12/23/18 11:15 12/23/18 14:48 1 TAB Aspirin (Lima Aspirin) 325 mg 1X ONCE 12/22/18 21:30 12/22/18 21:31 DC 12/22/18 21:34 325 MG Aspirin (Ecotrin) 81 mg DAILYWBKFT 12/24/18 08:00 Estradiol (Estrace) 1 kalyan QHS 12/23/18 21:00 Fluticasone Propionate (Flonase) 1 spray DAILY 12/23/18 12:00 Furosemide (Lasix) 40 mg DAILY 12/24/18 09:00 Hydrocortisone Acetate (Anucort-Hc) 25 mg BID 12/23/18 12:00 12/23/18 13:02 25 MG Hydroxyzine HCl (Atarax) 10 mg PRN QID PRN 12/23/18 11:45 Levothyroxine Sodium (Synthroid) 75 mcg DAILY06 12/23/18 15:30 12/23/18 14:48 75 MCG Lisinopril (Prinivil) 10 mg 1X ONCE 12/23/18 13:15 12/23/18 13:40 DC 12/23/18 14:48 10 MG Losartan Potassium (Cozaar) 100 mg DAILY 12/23/18 12:00 12/23/18 13:01 100 MG Metoprolol Tartrate (Lopressor) 50 mg BID 12/23/18 12:00 12/23/18 13:02 50 MG Morphine Sulfate (Morphine Sulfate) 4 mg Q4HRS PRN 12/22/18 21:45 12/23/18 21:44 12/23/18 11:00 4 MG Non-Formulary Medication (Hydrocortisone Acetate (Anusol-Hc)) 1 supp BID 12/23/18 21:00 UNV Non-Formulary Medication (Lidocaine Hcl ) 1 kalyan PRN QID PRN 12/23/18 11:15 UNV Non-Formulary Medication (Linaclotide (Linzess)) 145 mcg QODAY 12/25/18 09:00 UNV Non-Formulary Medication (Tamoxifen Citrate ) 1 tab DAILY 12/24/18 09:00 UNV Pantoprazole Sodium (Protonix) 40 mg QHS 12/23/18 21:00 Polyethylene Glycol (miraLAX PACKET) 17 gm PRN DAILY PRN 12/23/18 12:00 12/23/18 15:18 17 GM Potassium Chloride (Klor-Con) 20 meq DAILYWBKFT 12/23/18 08:00 12/23/18 09:25 20 MEQ Senna/Docusate Sodium (Senna Plus) 1 tab PRN DAILY PRN 12/23/18 11:15 12/23/18 15:18 1 TAB Tamoxifen Citrate (Nolvadex) 20 mg DAILY 12/23/18 12:00 12/23/18 13:10 20 MG Allergies Allergies Allergies Coded Allergies Type Severity Reaction Last Updated Verified amoxicillin trihydrate Allergy Intermediate Hives 01/23/16 Yes metronidazole Allergy Intermediate Nausea and Vomiting 01/23/16 Yes potassium clavulanate Allergy Intermediate Hives 01/23/16 Yes ranitidine Allergy Intermediate 07/02/17 Yes ROS Review of System CONSTITUTIONAL: No fever or chills EYES: No recent changes SKIN: No rash or itching CARDIOVASCULAR: No chest pain, syncope, palpitations, or edema RESPIRATORY: No SOB or cough GASTROINTESTINAL: No nausea, vomiting or abdominal pain NEUROLOGICAL: No headaches or weakness ENDOCRINE: No cold or heat intolerance GENITOURINARY: No urgency or frequency of urination MUSCULOSKELETAL: No back pain or joint pain LYMPHATICS: No enlarged lymph nodes PSYCHIATRIC: No anxiety or depression Physical Exam Physical Exam GEN.: No apparent distress. Alert and oriented. HEENT: Head is normocephalic, atraumatic NECK: Supple. LUNGS: Clear to auscultation. HEART: RRR, S1, S2 present. systolic murmur 2/6 Peripheral pulses intact ABDOMEN: Soft, nontender. Positive bowel sounds. EXTREMITIES: Without any cyanosis. 3+ edema NEUROLOGIC: Normal speech, normal tone PSYCHIATRIC: Normal affect, normal mood. SKIN: No ulcerations Vitals Vitals Vital Signs Date Time Temp Pulse Resp B/P (MAP) Pulse Ox O2 Delivery O2 Flow Rate FiO2 12/23/18 14:49 97.6 61 20 114/66 (82) 99 Room Air 97.6 Labs Labs Laboratory Tests Test 12/22/18 17:45 12/22/18 18:28 12/23/18 00:30 12/23/18 03:35 Urine Collection Type Unknown Urine Color Yellow Urine Clarity Clear Urine pH 7.5 Urine Specific [place] <=1.005 Urine Protein Negative mg/dL (NEG-TRACE) Urine Glucose (UA) Negative mg/dL (NEG) Urine Ketones (Stick) Negative mg/dL (NEG) Urine Blood Negative (NEG) Urine Nitrite Negative (NEG) Urine Bilirubin Negative (NEG) Urine Urobilinogen Dipstick 0.2 mg/dL (0.2 mg/dL) Urine Leukocyte Esterase Negative (NEG) Urine RBC 0 /HPF (0-2) Urine WBC 0 /HPF (0-4) Urine Squamous Epithelial Cells Mod /LPF Urine Bacteria 0 /HPF (0-FEW) White Blood Count 6.0 x10^3/uL (4.0-11.0) Red Blood Count 3.80 x10^6/uL (3.50-5.40) Hemoglobin 11.3 g/dL (12.0-15.5) Hematocrit 35.1 % (36.0-47.0) Mean Corpuscular Volume 92 fL (79-100) Mean Corpuscular Hemoglobin 30 pg (25-35) Mean Corpuscular Hemoglobin Concent 32 g/dL (31-37) Red Cell Distribution Width 14.3 % (11.5-14.5) Platelet Count 234 x10^3/uL (140-400) Neutrophils (%) (Auto) 72 % (31-73) Lymphocytes (%) (Auto) 19 % (24-48) Monocytes (%) (Auto) 8 % (0-9) Eosinophils (%) (Auto) 1 % (0-3) Basophils (%) (Auto) 0 % (0-3) Neutrophils # (Auto) 4.3 x10^3uL (1.8-7.7) Lymphocytes # (Auto) 1.2 x10^3/uL (1.0-4.8) Monocytes # (Auto) 0.5 x10^3/uL (0.0-1.1) Eosinophils # (Auto) 0.0 x10^3/uL (0.0-0.7) Basophils # (Auto) 0.0 x10^3/uL (0.0-0.2) Prothrombin Time 13.4 SEC (11.7-14.0) Prothromb Time International Ratio 1.1 (0.8-1.1) Activated Partial Thromboplast Time 27 SEC (24-38) Sodium Level 143 mmol/L (136-145) 144 mmol/L (136-145) Potassium Level 4.8 mmol/L (3.5-5.1) 3.6 mmol/L (3.5-5.1) Chloride Level 105 mmol/L (98-107) 103 mmol/L (98-107) Carbon Dioxide Level 30 mmol/L (21-32) 28 mmol/L (21-32) Anion Gap 8 (6-14) 13 (6-14) Blood Urea Nitrogen 17 mg/dL (7-20) 16 mg/dL (7-20) Creatinine 0.7 mg/dL (0.6-1.0) 0.9 mg/dL (0.6-1.0) Estimated GFR (Cockcroft-Gault) 97.2 72.7 BUN/Creatinine Ratio 24 (6-20) Glucose Level 93 mg/dL (70-99) 152 mg/dL (70-99) Calcium Level 10.1 mg/dL (8.5-10.1) 9.8 mg/dL (8.5-10.1) Total Bilirubin 0.4 mg/dL (0.2-1.0) Aspartate Amino Transf (AST/SGOT) 25 U/L (15-37) Alanine Aminotransferase (ALT/SGPT) 12 U/L (14-59) Alkaline Phosphatase 47 U/L (46-116) Creatine Kinase 166 U/L (26-192) Creatine Kinase MB (Mass) 2.0 ng/mL (0.0-3.6) Creatine Kinase MB Relative Index 1.2 % (0-4) Troponin I Quantitative 0.026 ng/mL (0.000-0.055) < 0.017 ng/mL (0.000-0.055) < 0.017 ng/mL (0.000-0.055) YS-Bap-Q-Type Natriuretic Peptide 4894 pg/mL (0-449) Total Protein 7.7 g/dL (6.4-8.2) Albumin 3.8 g/dL (3.4-5.0) Albumin/Globulin Ratio 1.0 (1.0-1.7) Magnesium Level 1.8 mg/dL (1.8-2.4) Thyroid Stimulating Hormone (TSH) 0.097 uIU/mL (0.358-3.74) Laboratory Tests Test 12/22/18 17:45 12/22/18 18:28 12/23/18 00:30 12/23/18 03:35 Urine Collection Type Unknown Urine Color Yellow Urine Clarity Clear Urine pH 7.5 Urine Specific [place] <=1.005 Urine Protein Negative mg/dL (NEG-TRACE) Urine Glucose (UA) Negative mg/dL (NEG) Urine Ketones (Stick) Negative mg/dL (NEG) Urine Blood Negative (NEG) Urine Nitrite Negative (NEG) Urine Bilirubin Negative (NEG) Urine Urobilinogen Dipstick 0.2 mg/dL (0.2 mg/dL) Urine Leukocyte Esterase Negative (NEG) Urine RBC 0 /HPF (0-2) Urine WBC 0 /HPF (0-4) Urine Squamous Epithelial Cells Mod /LPF Urine Bacteria 0 /HPF (0-FEW) White Blood Count 6.0 x10^3/uL (4.0-11.0) Red Blood Count 3.80 x10^6/uL (3.50-5.40) Hemoglobin 11.3 g/dL (12.0-15.5) Hematocrit 35.1 % (36.0-47.0) Mean Corpuscular Volume 92 fL (79-100) Mean Corpuscular Hemoglobin 30 pg (25-35) Mean Corpuscular Hemoglobin Concent 32 g/dL (31-37) Red Cell Distribution Width 14.3 % (11.5-14.5) Platelet Count 234 x10^3/uL (140-400) Neutrophils (%) (Auto) 72 % (31-73) Lymphocytes (%) (Auto) 19 % (24-48) Monocytes (%) (Auto) 8 % (0-9) Eosinophils (%) (Auto) 1 % (0-3) Basophils (%) (Auto) 0 % (0-3) Neutrophils # (Auto) 4.3 x10^3uL (1.8-7.7) Lymphocytes # (Auto) 1.2 x10^3/uL (1.0-4.8) Monocytes # (Auto) 0.5 x10^3/uL (0.0-1.1) Eosinophils # (Auto) 0.0 x10^3/uL (0.0-0.7) Basophils # (Auto) 0.0 x10^3/uL (0.0-0.2) Prothrombin Time 13.4 SEC (11.7-14.0) Prothromb Time International Ratio 1.1 (0.8-1.1) Activated Partial Thromboplast Time 27 SEC (24-38) Sodium Level 143 mmol/L (136-145) 144 mmol/L (136-145) Potassium Level 4.8 mmol/L (3.5-5.1) 3.6 mmol/L (3.5-5.1) Chloride Level 105 mmol/L (98-107) 103 mmol/L (98-107) Carbon Dioxide Level 30 mmol/L (21-32) 28 mmol/L (21-32) Anion Gap 8 (6-14) 13 (6-14) Blood Urea Nitrogen 17 mg/dL (7-20) 16 mg/dL (7-20) Creatinine 0.7 mg/dL (0.6-1.0) 0.9 mg/dL (0.6-1.0) Estimated GFR (Cockcroft-Gault) 97.2 72.7 BUN/Creatinine Ratio 24 (6-20) Glucose Level 93 mg/dL (70-99) 152 mg/dL (70-99) Calcium Level 10.1 mg/dL (8.5-10.1) 9.8 mg/dL (8.5-10.1) Total Bilirubin 0.4 mg/dL (0.2-1.0) Aspartate Amino Transf (AST/SGOT) 25 U/L (15-37) Alanine Aminotransferase (ALT/SGPT) 12 U/L (14-59) Alkaline Phosphatase 47 U/L (46-116) Creatine Kinase 166 U/L (26-192) Creatine Kinase MB (Mass) 2.0 ng/mL (0.0-3.6) Creatine Kinase MB Relative Index 1.2 % (0-4) Troponin I Quantitative 0.026 ng/mL (0.000-0.055) < 0.017 ng/mL (0.000-0.055) < 0.017 ng/mL (0.000-0.055) LP-Ysj-L-Type Natriuretic Peptide 4894 pg/mL (0-449) Total Protein 7.7 g/dL (6.4-8.2) Albumin 3.8 g/dL (3.4-5.0) Albumin/Globulin Ratio 1.0 (1.0-1.7) Magnesium Level 1.8 mg/dL (1.8-2.4) Thyroid Stimulating Hormone (TSH) 0.097 uIU/mL (0.358-3.74) VTE Prophylaxis Ordered VTE Prophylaxis Devices: No VTE Pharmacological Prophylaxi: Yes Assessment/Plan Assessment/Plan Bilateral lower extremity edema History of diastolic dysfunction which is chronic in nature Thyroidism on replacement therapy TSH noted will request free T4 History of breast cancer without recent follow-up History of dyslipidemia History of essential hypertension Plan continue with diuresis resume home meds cardiology evaluation PT eval further recommendations based on clinical course SARAH YAN MD Dec 23, 2018 16:57
--- NOTE | 2018-12-23 18:49 | NUR ---
PT. ran Jean most of this shift. Pt. dropped to 45-[address] Boo paged and told to hold Metoprolol. Order placed. Will continue to monitor.
[2018-12-23 19:00] VITALS: BP 133/51
[2018-12-23] MEDS: ESTRADIOL 0.01% VAGINAL CREAM 42.5GM TUBE. VG SCH (20:45)
[2018-12-23] MEDS: PANTOPRAZOLE 40 MG TABLET.DR. PO SCH (20:46)
[2018-12-23] MEDS: LISINOPRIL 20 MG TABLET PO SCH (20:46)
[2018-12-23] MEDS ORDERED: HYDROCORTISONE ACETATE RC SCH (21:00)
[2018-12-23 23:00] VITALS: BP 124/65
[2018-12-24 03:00] VITALS: BP 129/72
[2018-12-24] MEDS: HYDROcodone/APAP 5/325MG 1 TAB TABLET PO PRN ×2 (05:41→23:28)
[2018-12-24] MEDS: LEVOTHYROXINE 75 MCG TABLET PO SCH (05:41)
[2018-12-24 07:00] VITALS: BP 149/79
[2018-12-24] MEDS: ASPIRIN ENTERIC COATED 81 MG TABLET.DR. PO SCH (08:26)
[2018-12-24] MEDS: LISINOPRIL 20 MG TABLET PO SCH ×2 (08:28→20:08)
[2018-12-24] MEDS: POLYETHYLENE GLYCOL 3350 17 GM PACKET. PO PRN (08:28)
[2018-12-24] MEDS: SENNOSIDES/DOCUSATE 8.6/50MG TABLET. PO PRN (08:28)
[2018-12-24] MEDS: POTASSIUM CHLORIDE 20 MEQ TABLET.ER. PO SCH (08:29)
[2018-12-24] MEDS: LOSARTAN POTASSIUM 50 MG TABLET. PO SCH (08:30)
[2018-12-24] MEDS: FUROSEMIDE 40 MG TABLET. PO SCH (08:30)
[2018-12-24] MEDS: TAMOXIFEN 10 MG TABLET PO SCH (08:31)
[2018-12-24] MEDS: HYDROCORTISONE ACETATE 25 MG SUPP.RECT RC SCH ×2 (09:00→20:09)
[2018-12-24] MEDS: FLUTICASONE 50MCG/NASAL SPRAY 16GM BOTTLE. NS SCH (09:00)
[2018-12-24] MEDS ORDERED: TAMOXIFEN CITRATE PO SCH (09:00)
[2018-12-24 11:00] VITALS: BP 127/67
[2018-12-24] MEDS: tiZANidine 4 MG TABLET. PO PRN ×2 (12:00→20:08)
[2018-12-24] MEDS: ACETAMINOPHEN 325 MG TABLET. PO PRN ×2 (12:00→18:10)
--- NOTE | 2018-12-24 14:16 | PDOC ---
PROGRESS NOTES Chief Complaint Chief Complaint Bilateral lower extremity edema History of diastolic dysfunction which is chronic in nature Thyroidism on replacement therapy TSH noted will request free T4 History of breast cancer without recent follow-up History of dyslipidemia History of essential hypertension Plan continue with diuresis resume home meds cardiology evaluation appreciated will transiton to oral diuretic PT eval further recommendations based on clinical course History of Present Illness History of Present Illness Patient complaining off restless legs. No other complaints. Her edema has definitely resolved with the IV Lasix therapy. Her discomfort is resolved as well. Hopefully dismissed with the a.m. Vitals Vitals Vital Signs Date Time Temp Pulse Resp B/P (MAP) Pulse Ox O2 Delivery O2 Flow Rate FiO2 12/24/18 11:00 98.2 67 18 127/67 (87) 98 Room Air 98.2 Physical Exam General: Alert, Oriented X3, Cooperative, No acute distress Heart: Regular rate, Normal S1, Normal S2, Other (2/6 systolic murmur ) Abdomen: Soft, No tenderness Extremities: Other (2+ bilateral LE edema ) Skin: No breakdown Review of Systems Review of Systems Reviewed and found pertinent only as per history of present illness Assessment and Plan Assessmemt and Plan Problems Medical Problems: (1) Bilateral lower extremity edema Status: Acute (2) Intractable pain Status: Acute Comment Review of Relevant I have reviewed the following items juan a (where applicable) has been applied. Labs Laboratory Tests Test 12/22/18 17:45 12/22/18 18:28 12/23/18 00:30 12/23/18 03:35 Urine Collection Type Unknown Urine Color Yellow Urine Clarity Clear Urine pH 7.5 Urine Specific [place] <=1.005 Urine Protein Negative mg/dL (NEG-TRACE) Urine Glucose (UA) Negative mg/dL (NEG) Urine Ketones (Stick) Negative mg/dL (NEG) Urine Blood Negative (NEG) Urine Nitrite Negative (NEG) Urine Bilirubin Negative (NEG) Urine Urobilinogen Dipstick 0.2 mg/dL (0.2 mg/dL) Urine Leukocyte Esterase Negative (NEG) Urine RBC 0 /HPF (0-2) Urine WBC 0 /HPF (0-4) Urine Squamous Epithelial Cells Mod /LPF Urine Bacteria 0 /HPF (0-FEW) White Blood Count 6.0 x10^3/uL (4.0-11.0) Red Blood Count 3.80 x10^6/uL (3.50-5.40) Hemoglobin 11.3 g/dL (12.0-15.5) Hematocrit 35.1 % (36.0-47.0) Mean Corpuscular Volume 92 fL (79-100) Mean Corpuscular Hemoglobin 30 pg (25-35) Mean Corpuscular Hemoglobin Concent 32 g/dL (31-37) Red Cell Distribution Width 14.3 % (11.5-14.5) Platelet Count 234 x10^3/uL (140-400) Neutrophils (%) (Auto) 72 % (31-73) Lymphocytes (%) (Auto) 19 % (24-48) Monocytes (%) (Auto) 8 % (0-9) Eosinophils (%) (Auto) 1 % (0-3) Basophils (%) (Auto) 0 % (0-3) Neutrophils # (Auto) 4.3 x10^3uL (1.8-7.7) Lymphocytes # (Auto) 1.2 x10^3/uL (1.0-4.8) Monocytes # (Auto) 0.5 x10^3/uL (0.0-1.1) Eosinophils # (Auto) 0.0 x10^3/uL (0.0-0.7) Basophils # (Auto) 0.0 x10^3/uL (0.0-0.2) Prothrombin Time 13.4 SEC (11.7-14.0) Prothromb Time International Ratio 1.1 (0.8-1.1) Activated Partial Thromboplast Time 27 SEC (24-38) Sodium Level 143 mmol/L (136-145) 144 mmol/L (136-145) Potassium Level 4.8 mmol/L (3.5-5.1) 3.6 mmol/L (3.5-5.1) Chloride Level 105 mmol/L (98-107) 103 mmol/L (98-107) Carbon Dioxide Level 30 mmol/L (21-32) 28 mmol/L (21-32) Anion Gap 8 (6-14) 13 (6-14) Blood Urea Nitrogen 17 mg/dL (7-20) 16 mg/dL (7-20) Creatinine 0.7 mg/dL (0.6-1.0) 0.9 mg/dL (0.6-1.0) Estimated GFR (Cockcroft-Gault) 97.2 72.7 BUN/Creatinine Ratio 24 (6-20) Glucose Level 93 mg/dL (70-99) 152 mg/dL (70-99) Calcium Level 10.1 mg/dL (8.5-10.1) 9.8 mg/dL (8.5-10.1) Total Bilirubin 0.4 mg/dL (0.2-1.0) Aspartate Amino Transf (AST/SGOT) 25 U/L (15-37) Alanine Aminotransferase (ALT/SGPT) 12 U/L (14-59) Alkaline Phosphatase 47 U/L (46-116) Creatine Kinase 166 U/L (26-192) Creatine Kinase MB (Mass) 2.0 ng/mL (0.0-3.6) Creatine Kinase MB Relative Index 1.2 % (0-4) Troponin I Quantitative 0.026 ng/mL (0.000-0.055) < 0.017 ng/mL (0.000-0.055) < 0.017 ng/mL (0.000-0.055) LA-Nyg-M-Type Natriuretic Peptide 4894 pg/mL (0-449) Total Protein 7.7 g/dL (6.4-8.2) Albumin 3.8 g/dL (3.4-5.0) Albumin/Globulin Ratio 1.0 (1.0-1.7) Magnesium Level 1.8 mg/dL (1.8-2.4) Thyroid Stimulating Hormone (TSH) 0.097 uIU/mL (0.358-3.74) Medications Current Medications Morphine Sulfate (Morphine Sulfate) 4 mg 1X ONCE IV Last administered on at 21:36; Start 12/22/18 at 21:30; Stop 12/22/18 at 21:31; Status DC Aspirin (Lima Aspirin) 325 mg 1X ONCE PO Last administered on 12/22/18at 21:34 ; Start 12/22/18 at 21:30; Stop 12/22/18 at 21:31; Status DC Furosemide (Lasix) 40 mg 1X ONCE IVP Last administered on 12/22/18at 21:35; Start 12/22/18 at 21:30; Stop 12/22/18 at 21:31; Status DC Morphine Sulfate (Morphine Sulfate) 4 mg Q4HRS PRN IV PAIN Last administered on 12/23/18 11:00; Start 12/22/18 at 21:45; Stop 12/23/18 at 21:44; Status DC Furosemide (Lasix) 40 mg BID92 IVP Last administered on 12/23/18 09:26; Start 12/23/18 at 09:00; Stop 12/23/18 at 13:16; Status DC Potassium Chloride (Klor-Con) 20 meq DAILYWBKFT PO Last administered on 08:29; Start 12/23/18 at 08:00 Acetaminophen (Tylenol) 650 mg PRN Q6HRS PRN PO MILD PAIN / TEMP Last administered on 12/24/18 12:00; Start 12/23/18 at 11:15 Estradiol (Estrace) 1 valerie QHS VG Last administered on 12/23/18 20:45; Start 12/23/18 at 21:00 Fluticasone Propionate (Flonase) 1 spray DAILY NS ; Start 12/23/18 at 12:00 Acetaminophen/ Hydrocodone Bitart (Lortab 5/325) 1 tab PRN Q6HRS PRN PO MODERATE PAIN Last administered on 12/24/18 05:41; Start 12/23/18 at 11:15 Levothyroxine Sodium (Synthroid) 75 mcg DAILY06 PO Last administered on 05:41; Start 12/23/18 at 15:30 Lisinopril (Prinivil) 10 mg BID PO Last administered on 12/23/18 13:02; Start 12/23/18 at 12:00; Stop 12/23/18 at 13:16; Status DC Senna/Docusate Sodium (Senna Plus) 1 tab PRN DAILY PRN PO CONSTIPATION Last administered on 12/24/18 08:28; Start 12/23/18 at 11:15 Hydrocortisone Acetate (Anucort-Hc) 25 mg BID RC Last administered on 12/23/18 20:45; Start 12/23/18 at 12:00 Non-Formulary Medication (Hydrocortisone Acetate (Anusol-Hc)) 1 supp BID RC ; Start 12/23/18 at 21:00; Status UNV Hydroxyzine HCl (Atarax) 10 mg PRN QID PRN PO ITCHING Last administered on 08:31; Start 12/23/18 at 11:45 Non-Formulary Medication (Lidocaine Hcl ) 1 valerie PRN QID PRN TP RECTAL PAIN; Start 12/23/18 at 11:15; Status UNV Non-Formulary Medication (Linaclotide (Linzess)) 145 mcg QODAY PO ; Start at 09:00; Status UNV Metoprolol Tartrate (Lopressor) 50 mg BID PO Last administered on 12/23/18 13: 02; Start 12/23/18 at 12:00; Stop 12/23/18 at 18:04; Status DC Losartan Potassium (Cozaar) 100 mg DAILY PO Last administered on 12/24/18 08:30 ; Start 12/23/18 at 12:00 Pantoprazole Sodium (Protonix) 40 mg QHS PO Last administered on 12/23/18 20:46 ; Start 12/23/18 at 21:00 Polyethylene Glycol (miraLAX PACKET) 17 gm PRN DAILY PRN PO CONSTIPATION (2nd Choice) Last administered on 12/24/18 08:28; Start 12/23/18 at 12:00 Non-Formulary Medication (Tamoxifen Citrate ) 1 tab DAILY PO ; Start 12/24/18 at 09:00; Status UNV Tamoxifen Citrate (Nolvadex) 20 mg DAILY PO Last administered on 12/24/18 08:31 ; Start 12/23/18 at 12:00 Lisinopril (Prinivil) 20 mg BID PO Last administered on 12/24/18 08:28; Start 12/23/18 at 21:00 Aspirin (Ecotrin) 81 mg DAILYWBKFT PO Last administered on 12/24/18 08:26; Start 12/24/18 at 08:00 Furosemide (Lasix) 40 mg DAILY PO Last administered on 12/24/18 08:30; Start at 09:00 Lisinopril (Prinivil) 10 mg 1X ONCE PO Last administered on 12/23/18 14:48; Start 12/23/18 at 13:15; Stop 12/23/18 at 13:40; Status DC Tizanidine HCl (Zanaflex) 4 mg PRN Q8HRS PRN PO MUSCLE SPASMS Last administered on 12/24/18at 12:00; Start 12/24/18 at 11:30 Active Scripts Active Anusol-Hc (Hydrocortisone Acetate) 25 Mg Supp.rect 1 Supp RC BID [place] 5-325 Tablet (Acetaminophen/Hydrocodone Bitart) 1 Each Tablet 1 Tab PO PRN Q6HRS PRN Anusol-Hc (Hydrocortisone Acetate) 25 Mg Supp.rect 1 Supp RC BID [place] (Acetaminophen) 325 Mg Tablet 650 Mg PO PRN Q6HRS PRN Fluticasone Propionate Nasal [place] (Fluticasone Propionate) 16 Gm [place].susp 1 [place] NS DAILY Linzess (Linaclotide) 145 Mcg Capsule 145 Mcg PO QODAY Lisinopril 10 Mg Tablet 10 Mg PO BID Stool Softener-Laxative Tab (Sennosides/Docusate Sodium) 1 Each Tablet 1 Each PO PRN DAILY Polyethylene Glycol 3350 17 Gm Powd.pack 17 Gm PO DAILY PRN Synthroid (Levothyroxine Sodium) 75 Mcg Tablet 75 Mcg PO DAILY07 Lidocaine Hcl 5 Ml Jel..ml. 1 Valerie TP PRN QID PRN Reported Tamoxifen Citrate 20 Mg Tablet 1 Tab PO DAILY Benicar (Olmesartan Medoxomil) 40 Mg Tablet 40 Mg PO DAILY PRN Bystolic (Nebivolol) 10 Mg Tablet 10 Mg PO DAILY Estrace (Estradiol) 42.5 Gm Cream.appl 1 Gm VG DAILY Hydroxyzine Hcl 10 Mg Tablet 10 Mg PO PRN QID PRN Tamoxifen Citrate 20 Mg Tablet 20 Mg PO DAILY Omeprazole 20 Mg Tablet.dr 1 Tab PO HS Vitals/I & O Vital Sign - Last 24 Hours 12/23/18 12/23/18 12/23/18 12/23/18 14:48 14:48 14:49 19:00 Temp 97.6 98.0 97.6 98.0 Pulse 61 61 101 Resp 20 20 B/P (MAP) 114/66 114/66 (82) 133/51 (78) Pulse Ox 99 97 O2 Delivery Room Air Room Air Room Air 12/23/18 12/23/18 12/23/18 12/23/18 19:33 20:46 20:49 21:49 Pulse 49 B/P (MAP) 133/51 Pulse Ox 99 99 O2 Delivery Room Air Room Air 12/23/18 12/24/18 12/24/18 12/24/18 23:00 03:00 05:41 07:00 Temp 98.2 98.2 97.2 98.2 98.2 97.2 Pulse 51 51 67 Resp 16 16 18 B/P (MAP) 124/65 (84) 129/72 (91) 149/79 (102) Pulse Ox 98 97 97 94 O2 Delivery Room Air Room Air Room Air Room Air 12/24/18 12/24/18 12/24/18 12/24/18 08:28 08:30 08:30 08:35 Pulse 67 67 B/P (MAP) 149/79 149/79 O2 Delivery Room Air Room Air 12/24/18 11:00 Temp 98.2 98.2 Pulse 67 Resp 18 B/P (MAP) 127/67 (87) Pulse Ox 98 O2 Delivery Room Air Intake and Output 12/23/18 12/23/18 12/24/18 15:01 23:01 07:01 Intake Total 40 ml Balance 40 ml Nutrition Consultation Dietary Evaluation: Recommendations by RD: Dietary education by RD, Increase Calorie Intake, Protein supplementation, Add supplement feedings Comments: Educated client on reduced sodium diet Ensure supplement (vanilla) to increase calorie and protein intake Expected Outcomes/Goals: Compliance with Cardiac diet P.O. intake of >75% All questions answered by time of d/c Malnutrition Findings: Food and Nutrition Intake (Mod: <75% est energy req 7days Body Fat Depletion (Non Severe: Mild Depletion Weight Status: Appropriate SARAH YAN MD Dec 24, 2018 14:16
[2018-12-24 15:00] VITALS: BP 115/54
--- NOTE | 2018-12-24 17:24 | PDOC ---
PROGRESS NOTES Subjective Subjective Patient seen and examined The patient appears more comfortable today. Objective Objective Vital Signs Date Time Temp Pulse Resp B/P (MAP) Pulse Ox O2 Delivery O2 Flow Rate FiO2 12/24/18 15:00 98.0 64 18 115/54 (74) 97 Room Air 98.0 Intake and Output 12/24/18 07:01 Intake Total 40 ml Balance 40 ml Intake Oral 40 ml # Voids 5 Physical Exam Abdomen: Normal bowel sounds Heart: Regular rate General: No acute distress Lungs: Other (mildly decreased breath sounds) Assessment Assessment Problems Medical Problems: (1) Bilateral lower extremity edema Status: Acute (2) Intractable pain Status: Acute Chronic lower extremity edema. Ultrasound shows no DVT. Improving with diuresis. TEDS as above. Probable mild diastolic heart failure. Echocardiogram with an ejection fraction of 50%. No significant valvular disease. X-ray shows no significant vascular congestion. We'll continue present medical treatment and convert to oral diuretics. Accelerated hypertension. Improving. Medication adjustment as above. Breast cancer status post mastectomy. Patient apparently has not follow-up with oncology for at least 2 years. Hypothyroidism with a TSH of 0.097. Comment Review of Relevant I have reviewed the following items juan a (where applicable) has been applied. Labs Laboratory Tests Test 12/22/18 17:45 12/22/18 18:28 12/23/18 00:30 12/23/18 03:35 Urine Collection Type Unknown Urine Color Yellow Urine Clarity Clear Urine pH 7.5 Urine Specific [place] <=1.005 Urine Protein Negative mg/dL (NEG-TRACE) Urine Glucose (UA) Negative mg/dL (NEG) Urine Ketones (Stick) Negative mg/dL (NEG) Urine Blood Negative (NEG) Urine Nitrite Negative (NEG) Urine Bilirubin Negative (NEG) Urine Urobilinogen Dipstick 0.2 mg/dL (0.2 mg/dL) Urine Leukocyte Esterase Negative (NEG) Urine RBC 0 /HPF (0-2) Urine WBC 0 /HPF (0-4) Urine Squamous Epithelial Cells Mod /LPF Urine Bacteria 0 /HPF (0-FEW) White Blood Count 6.0 x10^3/uL (4.0-11.0) Red Blood Count 3.80 x10^6/uL (3.50-5.40) Hemoglobin 11.3 g/dL (12.0-15.5) Hematocrit 35.1 % (36.0-47.0) Mean Corpuscular Volume 92 fL (79-100) Mean Corpuscular Hemoglobin 30 pg (25-35) Mean Corpuscular Hemoglobin Concent 32 g/dL (31-37) Red Cell Distribution Width 14.3 % (11.5-14.5) Platelet Count 234 x10^3/uL (140-400) Neutrophils (%) (Auto) 72 % (31-73) Lymphocytes (%) (Auto) 19 % (24-48) Monocytes (%) (Auto) 8 % (0-9) Eosinophils (%) (Auto) 1 % (0-3) Basophils (%) (Auto) 0 % (0-3) Neutrophils # (Auto) 4.3 x10^3uL (1.8-7.7) Lymphocytes # (Auto) 1.2 x10^3/uL (1.0-4.8) Monocytes # (Auto) 0.5 x10^3/uL (0.0-1.1) Eosinophils # (Auto) 0.0 x10^3/uL (0.0-0.7) Basophils # (Auto) 0.0 x10^3/uL (0.0-0.2) Prothrombin Time 13.4 SEC (11.7-14.0) Prothromb Time International Ratio 1.1 (0.8-1.1) Activated Partial Thromboplast Time 27 SEC (24-38) Sodium Level 143 mmol/L (136-145) 144 mmol/L (136-145) Potassium Level 4.8 mmol/L (3.5-5.1) 3.6 mmol/L (3.5-5.1) Chloride Level 105 mmol/L (98-107) 103 mmol/L (98-107) Carbon Dioxide Level 30 mmol/L (21-32) 28 mmol/L (21-32) Anion Gap 8 (6-14) 13 (6-14) Blood Urea Nitrogen 17 mg/dL (7-20) 16 mg/dL (7-20) Creatinine 0.7 mg/dL (0.6-1.0) 0.9 mg/dL (0.6-1.0) Estimated GFR (Cockcroft-Gault) 97.2 72.7 BUN/Creatinine Ratio 24 (6-20) Glucose Level 93 mg/dL (70-99) 152 mg/dL (70-99) Calcium Level 10.1 mg/dL (8.5-10.1) 9.8 mg/dL (8.5-10.1) Total Bilirubin 0.4 mg/dL (0.2-1.0) Aspartate Amino Transf (AST/SGOT) 25 U/L (15-37) Alanine Aminotransferase (ALT/SGPT) 12 U/L (14-59) Alkaline Phosphatase 47 U/L (46-116) Creatine Kinase 166 U/L (26-192) Creatine Kinase MB (Mass) 2.0 ng/mL (0.0-3.6) Creatine Kinase MB Relative Index 1.2 % (0-4) Troponin I Quantitative 0.026 ng/mL (0.000-0.055) < 0.017 ng/mL (0.000-0.055) < 0.017 ng/mL (0.000-0.055) EQ-Evf-B-Type Natriuretic Peptide 4894 pg/mL (0-449) Total Protein 7.7 g/dL (6.4-8.2) Albumin 3.8 g/dL (3.4-5.0) Albumin/Globulin Ratio 1.0 (1.0-1.7) Magnesium Level 1.8 mg/dL (1.8-2.4) Thyroid Stimulating Hormone (TSH) 0.097 uIU/mL (0.358-3.74) Medications Current Medications Morphine Sulfate (Morphine Sulfate) 4 mg 1X ONCE IV Last administered on 21:36; Start 12/22/18 at 21:30; Stop 12/22/18 at 21:31; Status DC Aspirin (Lima Aspirin) 325 mg 1X ONCE PO Last administered on 12/22/18 21:34 ; Start 12/22/18 at 21:30; Stop 12/22/18 at 21:31; Status DC Furosemide (Lasix) 40 mg 1X ONCE IVP Last administered on 12/22/18at 21:35; Start 12/22/18 at 21:30; Stop 12/22/18 at 21:31; Status DC Morphine Sulfate (Morphine Sulfate) 4 mg Q4HRS PRN IV PAIN Last administered on 12/23/18at 11:00; Start 12/22/18 at 21:45; Stop 12/23/18 at 21:44; Status DC Furosemide (Lasix) 40 mg BID92 IVP Last administered on 12/23/18 09:26; Start 12/23/18 at 09:00; Stop 12/23/18 at 13:16; Status DC Potassium Chloride (Klor-Con) 20 meq DAILYWBKFT PO Last administered on 08:29; Start 12/23/18 at 08:00 Acetaminophen (Tylenol) 650 mg PRN Q6HRS PRN PO MILD PAIN / TEMP Last administered on 12/24/18 12:00; Start 12/23/18 at 11:15 Estradiol (Estrace) 1 valerie QHS VG Last administered on 12/23/18 20:45; Start 12/23/18 at 21:00 Fluticasone Propionate (Flonase) 1 spray DAILY NS ; Start 12/23/18 at 12:00 Acetaminophen/ Hydrocodone Bitart (Lortab 5/325) 1 tab PRN Q6HRS PRN PO MODERATE PAIN Last administered on 12/24/18 05:41; Start 12/23/18 at 11:15 Levothyroxine Sodium (Synthroid) 75 mcg DAILY06 PO Last administered on 05:41; Start 12/23/18 at 15:30 Lisinopril (Prinivil) 10 mg BID PO Last administered on 12/23/18 13:02; Start 12/23/18 at 12:00; Stop 12/23/18 at 13:16; Status DC Senna/Docusate Sodium (Senna Plus) 1 tab PRN DAILY PRN PO CONSTIPATION Last administered on 12/24/18 08:28; Start 12/23/18 at 11:15 Hydrocortisone Acetate (Anucort-Hc) 25 mg BID RC Last administered on 12/23/18 20:45; Start 12/23/18 at 12:00 Non-Formulary Medication (Hydrocortisone Acetate (Anusol-Hc)) 1 supp BID RC ; Start 12/23/18 at 21:00; Status UNV Hydroxyzine HCl (Atarax) 10 mg PRN QID PRN PO ITCHING Last administered on 08:31; Start 12/23/18 at 11:45 Non-Formulary Medication (Lidocaine Hcl ) 1 valerie PRN QID PRN TP RECTAL PAIN; Start 12/23/18 at 11:15; Status UNV Non-Formulary Medication (Linaclotide (Linzess)) 145 mcg QODAY PO ; Start at 09:00; Status UNV Metoprolol Tartrate (Lopressor) 50 mg BID PO Last administered on 12/23/18 13: 02; Start 12/23/18 at 12:00; Stop 12/23/18 at 18:04; Status DC Losartan Potassium (Cozaar) 100 mg DAILY PO Last administered on 12/24/18 08:30 ; Start 12/23/18 at 12:00 Pantoprazole Sodium (Protonix) 40 mg QHS PO Last administered on 12/23/18 20:46 ; Start 12/23/18 at 21:00 Polyethylene Glycol (miraLAX PACKET) 17 gm PRN DAILY PRN PO CONSTIPATION (2nd Choice) Last administered on 12/24/18 08:28; Start 12/23/18 at 12:00 Non-Formulary Medication (Tamoxifen Citrate ) 1 tab DAILY PO ; Start 12/24/18 at 09:00; Status UNV Tamoxifen Citrate (Nolvadex) 20 mg DAILY PO Last administered on 12/24/18 08:31 ; Start 12/23/18 at 12:00 Lisinopril (Prinivil) 20 mg BID PO Last administered on 12/24/18 08:28; Start 12/23/18 at 21:00 Aspirin (Ecotrin) 81 mg DAILYWBKFT PO Last administered on 12/24/18 08:26; Start 12/24/18 at 08:00 Furosemide (Lasix) 40 mg DAILY PO Last administered on 12/24/18 08:30; Start at 09:00 Lisinopril (Prinivil) 10 mg 1X ONCE PO Last administered on 12/23/18 14:48; Start 12/23/18 at 13:15; Stop 12/23/18 at 13:40; Status DC Tizanidine HCl (Zanaflex) 4 mg PRN Q8HRS PRN PO MUSCLE SPASMS Last administered on 12/24/18at 12:00; Start 12/24/18 at 11:30 Active Scripts Active Anusol-Hc (Hydrocortisone Acetate) 25 Mg Supp.rect 1 Supp RC BID [place] 5-325 Tablet (Acetaminophen/Hydrocodone Bitart) 1 Each Tablet 1 Tab PO PRN Q6HRS PRN Anusol-Hc (Hydrocortisone Acetate) 25 Mg Supp.rect 1 Supp RC BID Mapap (Acetaminophen) 325 Mg Tablet 650 Mg PO PRN Q6HRS PRN Fluticasone Propionate Nasal [place] (Fluticasone Propionate) 16 Gm Luna.susp 1 Luna NS DAILY Linzess (Linaclotide) 145 Mcg Capsule 145 Mcg PO QODAY Lisinopril 10 Mg Tablet 10 Mg PO BID Stool Softener-Laxative Tab (Sennosides/Docusate Sodium) 1 Each Tablet 1 Each PO PRN DAILY Polyethylene Glycol 3350 17 Gm Powd.pack 17 Gm PO DAILY PRN Synthroid (Levothyroxine Sodium) 75 Mcg Tablet 75 Mcg PO DAILY07 Lidocaine Hcl 5 Ml Jel..ml. 1 Valerie TP PRN QID PRN Reported Tamoxifen Citrate 20 Mg Tablet 1 Tab PO DAILY Benicar (Olmesartan Medoxomil) 40 Mg Tablet 40 Mg PO DAILY PRN Bystolic (Nebivolol) 10 Mg Tablet 10 Mg PO DAILY Estrace (Estradiol) 42.5 Gm Cream.appl 1 Gm VG DAILY Hydroxyzine Hcl 10 Mg Tablet 10 Mg PO PRN QID PRN Tamoxifen Citrate 20 Mg Tablet 20 Mg PO DAILY Omeprazole 20 Mg Tablet.dr 1 Tab PO HS Vitals/I & O Vital Sign - Last 24 Hours 12/23/18 12/23/18 12/23/18 12/23/18 19:00 19:33 20:46 20:49 Temp 98.0 98.0 Pulse 101 49 Resp 20 B/P (MAP) 133/51 (78) 133/51 Pulse Ox 97 99 O2 Delivery Room Air Room Air Room Air 12/23/18 12/23/18 12/24/18 12/24/18 21:49 23:00 03:00 05:41 Temp 98.2 98.2 98.2 98.2 Pulse 51 51 Resp 16 16 B/P (MAP) 124/65 (84) 129/72 (91) Pulse Ox 99 98 97 97 O2 Delivery Room Air Room Air Room Air 12/24/18 12/24/18 12/24/18 12/24/18 07:00 08:28 08:30 08:30 Temp 97.2 97.2 Pulse 67 67 67 Resp 18 B/P (MAP) 149/79 (102) 149/79 149/79 Pulse Ox 94 O2 Delivery Room Air Room Air 12/24/18 12/24/18 12/24/18 08:35 11:00 15:00 Temp 98.2 98.0 98.2 98.0 Pulse 67 64 Resp 18 18 B/P (MAP) 127/67 (87) 115/54 (74) Pulse Ox 98 97 O2 Delivery Room Air Room Air Room Air Intake and Output 12/23/18 12/23/18 12/24/18 15:01 23:01 07:01 Intake Total 40 ml Balance 40 ml Nutrition Consultation Dietary Evaluation: Recommendations by RD: Dietary education by RD, Increase Calorie Intake, Protein supplementation, Add supplement feedings Comments: Educated client on reduced sodium diet Ensure supplement (vanilla) to increase calorie and protein intake Expected Outcomes/Goals: Compliance with Cardiac diet P.O. intake of >75% All questions answered by time of d/c Malnutrition Findings: Food and Nutrition Intake (Mod: <75% est energy req 7days Body Fat Depletion (Non Severe: Mild Depletion Weight Status: Appropriate SERAFIN LIND MD Dec 24, 2018 17:24
[2018-12-24 19:00] VITALS: BP 111/64
[2018-12-24] MEDS: ESTRADIOL 0.01% VAGINAL CREAM 42.5GM TUBE. VG SCH (20:07)
[2018-12-24] MEDS: PANTOPRAZOLE 40 MG TABLET.DR. PO SCH (20:08)
[2018-12-24 23:00] VITALS: BP 124/65
[2018-12-25 03:04] VITALS: BP 118/60
[2018-12-25] MEDS: LEVOTHYROXINE 75 MCG TABLET PO SCH (05:54)
[2018-12-25 07:00] VITALS: BP 116/66
[2018-12-25] MEDS: ASPIRIN ENTERIC COATED 81 MG TABLET.DR. PO SCH (08:36)
[2018-12-25] MEDS: POTASSIUM CHLORIDE 20 MEQ TABLET.ER. PO SCH (08:36)
[2018-12-25] MEDS: FUROSEMIDE 40 MG TABLET. PO SCH (08:37)
[2018-12-25] MEDS: LISINOPRIL 20 MG TABLET PO SCH ×2 (08:37→21:53)
[2018-12-25] MEDS: LOSARTAN POTASSIUM 50 MG TABLET. PO SCH (08:37)
[2018-12-25] MEDS: ACETAMINOPHEN 325 MG TABLET. PO PRN (08:38)
[2018-12-25] MEDS: tiZANidine 4 MG TABLET. PO PRN (08:38)
[2018-12-25] MEDS: TAMOXIFEN 10 MG TABLET PO SCH (08:45)
[2018-12-25] MEDS: FLUTICASONE 50MCG/NASAL SPRAY 16GM BOTTLE. NS SCH (09:00)
[2018-12-25] MEDS: NON FORMULARY ITEM (Linaclotide (Linzess) 145 MCG) PO SCH (09:00)
[2018-12-25] MEDS: HYDROCORTISONE ACETATE 25 MG SUPP.RECT RC SCH ×2 (09:00→22:15)
[2018-12-25 11:00] VITALS: BP 122/80
--- NOTE | 2018-12-25 13:00 | PDOC ---
PROGRESS NOTES Chief Complaint Chief Complaint Bilateral lower extremity edema History of diastolic dysfunction which is chronic in nature Thyroidism on replacement therapy TSH noted will request free T4 History of breast cancer without recent follow-up History of dyslipidemia History of essential hypertension Plan continue with diuresis resume home meds cardiology evaluation appreciated will transiton to oral diuretic PT eval further recommendations based on clinical course History of Present Illness History of Present Illness Patient complaining off restless legs. No other complaints. Her edema has definitely resolved with the IV Lasix therapy. Her discomfort is resolved as well. Hopefully dismissed with the a.m. complaining of insomnia and discomfort. Vitals Vitals Vital Signs Date Time Temp Pulse Resp B/P (MAP) Pulse Ox O2 Delivery O2 Flow Rate FiO2 12/25/18 11:00 98.4 77 18 122/80 (94) 99 Room Air 98.4 Physical Exam General: No acute distress Heart: Regular rate Abdomen: Normal bowel sounds Extremities: Other (2+ bilateral LE edema ) Skin: No breakdown Review of Systems Review of Systems Reviewed and found negative noncontributory Review of system is negative and only pertinent as per history of present illness Assessment and Plan Assessmemt and Plan Problems Medical Problems: (1) Bilateral lower extremity edema Status: Acute (2) Intractable pain Status: Acute Comment Review of Relevant I have reviewed the following items juan a (where applicable) has been applied. Medications Current Medications Morphine Sulfate (Morphine Sulfate) 4 mg 1X ONCE IV Last administered on 21:36; Start 12/22/18 at 21:30; Stop 12/22/18 at 21:31; Status DC Aspirin (Lima Aspirin) 325 mg 1X ONCE PO Last administered on 12/22/18 21:34 ; Start 12/22/18 at 21:30; Stop 12/22/18 at 21:31; Status DC Furosemide (Lasix) 40 mg 1X ONCE IVP Last administered on 12/22/18 21:35; Start 12/22/18 at 21:30; Stop 12/22/18 at 21:31; Status DC Morphine Sulfate (Morphine Sulfate) 4 mg Q4HRS PRN IV PAIN Last administered on 12/23/18 11:00; Start 12/22/18 at 21:45; Stop 12/23/18 at 21:44; Status DC Furosemide (Lasix) 40 mg BID92 IVP Last administered on 12/23/18 09:26; Start 12/23/18 at 09:00; Stop 12/23/18 at 13:16; Status DC Potassium Chloride (Klor-Con) 20 meq DAILYWBKFT PO Last administered on 08:36; Start 12/23/18 at 08:00 Acetaminophen (Tylenol) 650 mg PRN Q6HRS PRN PO MILD PAIN / TEMP Last administered on 12/25/18 08:38; Start 12/23/18 at 11:15 Estradiol (Estrace) 1 valerie QHS VG Last administered on 12/24/18 20:07; Start 12/23/18 at 21:00 Fluticasone Propionate (Flonase) 1 spray DAILY NS ; Start 12/23/18 at 12:00 Acetaminophen/ Hydrocodone Bitart (Lortab 5/325) 1 tab PRN Q6HRS PRN PO MODERATE PAIN Last administered on 12/24/18 23:28; Start 12/23/18 at 11:15 Levothyroxine Sodium (Synthroid) 75 mcg DAILY06 PO Last administered on 05:54; Start 12/23/18 at 15:30 Lisinopril (Prinivil) 10 mg BID PO Last administered on 12/23/18 13:02; Start 12/23/18 at 12:00; Stop 12/23/18 at 13:16; Status DC Senna/Docusate Sodium (Senna Plus) 1 tab PRN DAILY PRN PO CONSTIPATION Last administered on 12/24/18 08:28; Start 12/23/18 at 11:15 Hydrocortisone Acetate (Anucort-Hc) 25 mg BID RC Last administered on 12/23/18 20:45; Start 12/23/18 at 12:00 Non-Formulary Medication (Hydrocortisone Acetate (Anusol-Hc)) 1 supp BID RC ; Start 12/23/18 at 21:00; Status UNV Hydroxyzine HCl (Atarax) 10 mg PRN QID PRN PO ITCHING Last administered on 08:31; Start 12/23/18 at 11:45 Non-Formulary Medication (Lidocaine Hcl ) 1 valerie PRN QID PRN TP RECTAL PAIN; Start 12/23/18 at 11:15; Status UNV Non-Formulary Medication (Linaclotide (Linzess)) 145 mcg QODAY PO ; Start at 09:00; Status UNV Metoprolol Tartrate (Lopressor) 50 mg BID PO Last administered on 12/23/18 13: 02; Start 12/23/18 at 12:00; Stop 12/23/18 at 18:04; Status DC Losartan Potassium (Cozaar) 100 mg DAILY PO Last administered on 12/25/18 08:37 ; Start 12/23/18 at 12:00 Pantoprazole Sodium (Protonix) 40 mg QHS PO Last administered on 12/24/18 20:08 ; Start 12/23/18 at 21:00 Polyethylene Glycol (miraLAX PACKET) 17 gm PRN DAILY PRN PO CONSTIPATION (2nd Choice) Last administered on 12/24/18 08:28; Start 12/23/18 at 12:00 Non-Formulary Medication (Tamoxifen Citrate ) 1 tab DAILY PO ; Start 12/24/18 at 09:00; Status UNV Tamoxifen Citrate (Nolvadex) 20 mg DAILY PO Last administered on 12/25/18 08:45 ; Start 12/23/18 at 12:00 Lisinopril (Prinivil) 20 mg BID PO Last administered on 12/25/18 08:37; Start 12/23/18 at 21:00 Aspirin (Ecotrin) 81 mg DAILYWBKFT PO Last administered on 12/25/18 08:36; Start 12/24/18 at 08:00 Furosemide (Lasix) 40 mg DAILY PO Last administered on 12/25/18 08:37; Start at 09:00 Lisinopril (Prinivil) 10 mg 1X ONCE PO Last administered on 12/23/18 14:48; Start 12/23/18 at 13:15; Stop 12/23/18 at 13:40; Status DC Tizanidine HCl (Zanaflex) 4 mg PRN Q8HRS PRN PO MUSCLE SPASMS Last administered on 12/25/18 08:38; Start 12/24/18 at 11:30 Active Scripts Active Anusol-Hc (Hydrocortisone Acetate) 25 Mg Supp.rect 1 Supp RC BID [place] 5-325 Tablet (Acetaminophen/Hydrocodone Bitart) 1 Each Tablet 1 Tab PO PRN Q6HRS PRN Anusol-Hc (Hydrocortisone Acetate) 25 Mg Supp.rect 1 Supp RC BID Mapap (Acetaminophen) 325 Mg Tablet 650 Mg PO PRN Q6HRS PRN Fluticasone Propionate Nasal [place] (Fluticasone Propionate) 16 Gm [place].susp 1 [place] NS DAILY Linzess (Linaclotide) 145 Mcg Capsule 145 Mcg PO QODAY Lisinopril 10 Mg Tablet 10 Mg PO BID Stool Softener-Laxative Tab (Sennosides/Docusate Sodium) 1 Each Tablet 1 Each PO PRN DAILY Polyethylene Glycol 3350 17 Gm Powd.pack 17 Gm PO DAILY PRN Synthroid (Levothyroxine Sodium) 75 Mcg Tablet 75 Mcg PO DAILY07 Lidocaine Hcl 5 Ml Jel..ml. 1 Valerie TP PRN QID PRN Reported Tamoxifen Citrate 20 Mg Tablet 1 Tab PO DAILY Benicar (Olmesartan Medoxomil) 40 Mg Tablet 40 Mg PO DAILY PRN Bystolic (Nebivolol) 10 Mg Tablet 10 Mg PO DAILY Estrace (Estradiol) 42.5 Gm Cream.appl 1 Gm VG DAILY Hydroxyzine Hcl 10 Mg Tablet 10 Mg PO PRN QID PRN Tamoxifen Citrate 20 Mg Tablet 20 Mg PO DAILY Omeprazole 20 Mg Tablet. 1 Tab PO HS Vitals/I & O Vital Sign - Last 24 Hours 12/24/18 12/24/18 12/24/18 12/24/18 15:00 19:00 19:20 20:08 Temp 98.0 98.9 98.0 98.9 Pulse 64 80 80 Resp 18 20 B/P (MAP) 115/54 (74) 111/64 (80) 111/64 Pulse Ox 97 99 O2 Delivery Room Air Room Air Room Air 12/24/18 12/24/18 12/25/18 12/25/18 23:00 23:28 00:28 03:04 Temp 98.2 97.4 98.2 97.4 Pulse 67 76 Resp 20 20 B/P (MAP) 124/65 (84) 118/60 (79) Pulse Ox 97 97 97 100 O2 Delivery Room Air Room Air Room Air Room Air 12/25/18 12/25/18 12/25/18 12/25/18 07:00 08:37 08:37 11:00 Temp 98.5 98.4 98.5 98.4 Pulse 67 67 67 77 Resp 18 18 B/P (MAP) 116/66 (83) 116/66 116/66 122/80 (94) Pulse Ox 99 99 O2 Delivery Room Air Room Air Intake and Output 12/24/18 12/24/18 12/25/18 15:01 23:01 07:01 Intake Total 180 ml Output Total 100 ml Balance 180 ml -100 ml Nutrition Consultation Dietary Evaluation: Recommendations by RD: Dietary education by RD, Increase Calorie Intake, Protein supplementation, Add supplement feedings Comments: Educated client on reduced sodium diet Ensure supplement (vanilla) to increase calorie and protein intake Expected Outcomes/Goals: Compliance with Cardiac diet P.O. intake of >75% All questions answered by time of d/c Malnutrition Findings: Food and Nutrition Intake (Mod: <75% est energy req 7days Body Fat Depletion (Non Severe: Mild Depletion Weight Status: Appropriate SARAH YAN MD Dec 25, 2018 13:00
[2018-12-25 15:00] VITALS: BP 122/56
[2018-12-25] MEDS: traMADol 50 MG TABLET PO PRN ×2 (19:02→20:02)
[2018-12-25 19:59] VITALS: BP 116/57
[2018-12-25] MEDS: MIRTAZAPINE 15 MG TABLET PO SCH ×2 (21:53→22:15)
[2018-12-25] MEDS: PANTOPRAZOLE 40 MG TABLET.DR. PO SCH (21:53)
[2018-12-25] MEDS: HYDROcodone/APAP 5/325MG 1 TAB TABLET PO PRN (21:53)
[2018-12-25] MEDS: ESTRADIOL 0.01% VAGINAL CREAM 42.5GM TUBE. VG SCH (22:15)
[2018-12-25 23:22] VITALS: BP 155/69
[2018-12-26 02:57] VITALS: BP 144/63
[2018-12-26] MEDS: LEVOTHYROXINE 75 MCG TABLET PO SCH (05:26)
[2018-12-26] MEDS: HYDROcodone/APAP 5/325MG 1 TAB TABLET PO PRN ×3 (05:26→18:59)
[2018-12-26 07:00] VITALS: BP 113/49
[2018-12-26] MEDS: ASPIRIN ENTERIC COATED 81 MG TABLET.DR. PO SCH (08:55)
[2018-12-26] MEDS: POTASSIUM CHLORIDE 20 MEQ TABLET.ER. PO SCH (08:55)
[2018-12-26] MEDS: LOSARTAN POTASSIUM 50 MG TABLET. PO SCH (08:56)
[2018-12-26] MEDS: LISINOPRIL 20 MG TABLET PO SCH ×2 (08:57→21:18)
[2018-12-26] MEDS: TAMOXIFEN 10 MG TABLET PO SCH (09:00)
[2018-12-26] MEDS: FUROSEMIDE 40 MG TABLET. PO SCH (09:00)
[2018-12-26] MEDS: FLUTICASONE 50MCG/NASAL SPRAY 16GM BOTTLE. NS SCH (09:00)
[2018-12-26] MEDS: HYDROCORTISONE ACETATE 25 MG SUPP.RECT RC SCH ×2 (09:00→20:48)
[2018-12-26] MEDS: ACETAMINOPHEN 325 MG TABLET. PO PRN (09:12)
[2018-12-26] MEDS: tiZANidine 4 MG TABLET. PO PRN ×2 (09:12→21:18)
[2018-12-26 11:00] VITALS: BP 73/39
[2018-12-26 15:00] VITALS: BP 73/64
--- NOTE | 2018-12-26 15:50 | PDOC ---
PROGRESS NOTES Chief Complaint Chief Complaint Bilateral lower extremity edema History of diastolic dysfunction which is chronic in nature Thyroidism on replacement therapy TSH noted will request free T4 History of breast cancer without recent follow-up History of dyslipidemia History of essential hypertension Plan continue with diuresis resume home meds cardiology evaluation appreciated will transiton to oral diuretic PT eval further recommendations based on clinical course History of Present Illness History of Present Illness Patient complaining off restless legs she refused her remeron yesterday and was not able to sleep due to stiffness, patient will be started again on muscle relaxants No other complaints. Her edema has definitely resolved with the IV Lasix therapy. Her discomfort is resolved as well. Hopefully dismissed with the a.m. complaining of insomnia and discomfort. Vitals Vitals Vital Signs Date Time Temp Pulse Resp B/P (MAP) Pulse Ox O2 Delivery O2 Flow Rate FiO2 12/26/18 15:00 97.7 67 17 73/64 (67) 99 Room Air 97.7 Physical Exam General: No acute distress Heart: Regular rate Abdomen: Normal bowel sounds Extremities: Other (2+ bilateral LE edema ) Skin: No breakdown Assessment and Plan Assessmemt and Plan Problems Medical Problems: (1) Bilateral lower extremity edema Status: Acute (2) Intractable pain Status: Acute Comment Review of Relevant I have reviewed the following items juan a (where applicable) has been applied. Medications Current Medications Morphine Sulfate (Morphine Sulfate) 4 mg 1X ONCE IV Last administered on 21:36; Start 12/22/18 at 21:30; Stop 12/22/18 at 21:31; Status DC Aspirin ([place] Aspirin) 325 mg 1X ONCE PO Last administered on 12/22/18 21:34 ; Start 12/22/18 at 21:30; Stop 12/22/18 at 21:31; Status DC Furosemide (Lasix) 40 mg 1X ONCE IVP Last administered on 12/22/18 21:35; Start 12/22/18 at 21:30; Stop 12/22/18 at 21:31; Status DC Morphine Sulfate (Morphine Sulfate) 4 mg Q4HRS PRN IV PAIN Last administered on 12/23/18 11:00; Start 12/22/18 at 21:45; Stop 12/23/18 at 21:44; Status DC Furosemide (Lasix) 40 mg BID92 IVP Last administered on 12/23/18 09:26; Start 12/23/18 at 09:00; Stop 12/23/18 at 13:16; Status DC Potassium Chloride (Klor-Con) 20 meq DAILYWBKFT PO Last administered on 08:55; Start 12/23/18 at 08:00 Acetaminophen (Tylenol) 650 mg PRN Q6HRS PRN PO MILD PAIN / TEMP Last administered on 12/26/18 09:12; Start 12/23/18 at 11:15 Estradiol (Estrace) 1 valerie QHS VG Last administered on 12/24/18 20:07; Start 12/23/18 at 21:00 Fluticasone Propionate (Flonase) 1 spray DAILY NS ; Start 12/23/18 at 12:00 Acetaminophen/ Hydrocodone Bitart (Lortab 5/325) 1 tab PRN Q6HRS PRN PO SEVERE PAIN Last administered on 12/26/18 14:30; Start 12/23/18 at 11:15 Levothyroxine Sodium (Synthroid) 75 mcg DAILY06 PO Last administered on 05:26; Start 12/23/18 at 15:30 Lisinopril (Prinivil) 10 mg BID PO Last administered on 12/23/18 13:02; Start 12/23/18 at 12:00; Stop 12/23/18 at 13:16; Status DC Senna/Docusate Sodium (Senna Plus) 1 tab PRN DAILY PRN PO CONSTIPATION 1ST CHOICE Last administered on 12/24/18 08:28; Start 12/23/18 at 11:15 Hydrocortisone Acetate (Anucort-Hc) 25 mg BID RC Last administered on 12/23/18 20:45; Start 12/23/18 at 12:00 Non-Formulary Medication (Hydrocortisone Acetate (Anusol-Hc)) 1 supp BID RC ; Start 12/23/18 at 21:00; Status UNV Hydroxyzine HCl (Atarax) 10 mg PRN QID PRN PO ITCHING Last administered on 08:31; Start 12/23/18 at 11:45 Non-Formulary Medication (Lidocaine Hcl ) 1 valerie PRN QID PRN TP RECTAL PAIN; Start 12/23/18 at 11:15; Status UNV Non-Formulary Medication (Linaclotide (Linzess)) 145 mcg QODAY PO ; Start at 09:00; Status UNV Metoprolol Tartrate (Lopressor) 50 mg BID PO Last administered on 12/23/18 13: 02; Start 12/23/18 at 12:00; Stop 12/23/18 at 18:04; Status DC Losartan Potassium (Cozaar) 100 mg DAILY PO Last administered on 12/26/18 08: 56; Start 12/23/18 at 12:00 Pantoprazole Sodium (Protonix) 40 mg QHS PO Last administered on 12/25/18 21:53 ; Start 12/23/18 at 21:00 Polyethylene Glycol (miraLAX PACKET) 17 gm PRN DAILY PRN PO CONSTIPATION (2nd Choice) Last administered on 12/24/18 08:28; Start 12/23/18 at 12:00 Non-Formulary Medication (Tamoxifen Citrate ) 1 tab DAILY PO ; Start 12/24/18 at 09:00; Status UNV Tamoxifen Citrate (Nolvadex) 20 mg DAILY PO Last administered on 12/26/18 09: 00; Start 12/23/18 at 12:00 Lisinopril (Prinivil) 20 mg BID PO Last administered on 12/26/18 08:57; Start 12/23/18 at 21:00 Aspirin (Ecotrin) 81 mg DAILYWBKFT PO Last administered on 12/26/18 08:55; Start 12/24/18 at 08:00 Furosemide (Lasix) 40 mg DAILY PO Last administered on 12/25/18 08:37; Start at 09:00 Lisinopril (Prinivil) 10 mg 1X ONCE PO Last administered on 12/23/18 14:48; Start 12/23/18 at 13:15; Stop 12/23/18 at 13:40; Status DC Tizanidine HCl (Zanaflex) 4 mg PRN Q8HRS PRN PO MUSCLE SPASMS Last administered on 12/26/18 09:12; Start 12/24/18 at 11:30 Mirtazapine (Remeron) 15 mg QHS PO ; Start 12/25/18 at 21:00 Tramadol HCl (Ultram) 50 mg PRN Q6HRS PRN PO MODERATE PAIN Last administered on 12/25/18at 20:02; Start 12/25/18 at 13:00 Hydrocortisone Acetate (Anucort-Hc) 25 mg STK-MED ONCE .ROUTE ; Start 12/23/18 at 09:00; Stop 12/26/18 at 12:45; Status DC Hydrocortisone Acetate (Anucort-Hc) 25 mg STK-MED ONCE .ROUTE ; Start 12/23/18 at 09:00; Stop 12/26/18 at 12:45; Status DC Active Scripts Active Anusol-Hc (Hydrocortisone Acetate) 25 Mg Supp.rect 1 Supp RC BID [place] 5-325 Tablet (Acetaminophen/Hydrocodone Bitart) 1 Each Tablet 1 Tab PO PRN Q6HRS PRN Anusol-Hc (Hydrocortisone Acetate) 25 Mg Supp.rect 1 Supp RC BID Mapap (Acetaminophen) 325 Mg Tablet 650 Mg PO PRN Q6HRS PRN Fluticasone Propionate Nasal [place] (Fluticasone Propionate) 16 Gm [place].susp 1 [place] NS DAILY Linzess (Linaclotide) 145 Mcg Capsule 145 Mcg PO QODAY Lisinopril 10 Mg Tablet 10 Mg PO BID Stool Softener-Laxative Tab (Sennosides/Docusate Sodium) 1 Each Tablet 1 Each PO PRN DAILY Polyethylene Glycol 3350 17 Gm Powd.pack 17 Gm PO DAILY PRN Synthroid (Levothyroxine Sodium) 75 Mcg Tablet 75 Mcg PO DAILY07 Lidocaine Hcl 5 Ml Jel..ml. 1 Valerie TP PRN QID PRN Reported Tamoxifen Citrate 20 Mg Tablet 1 Tab PO DAILY Benicar (Olmesartan Medoxomil) 40 Mg Tablet 40 Mg PO DAILY PRN Bystolic (Nebivolol) 10 Mg Tablet 10 Mg PO DAILY Estrace (Estradiol) 42.5 Gm Cream.appl 1 Gm VG DAILY Hydroxyzine Hcl 10 Mg Tablet 10 Mg PO PRN QID PRN Tamoxifen Citrate 20 Mg Tablet 20 Mg PO DAILY Omeprazole 20 Mg Tablet. 1 Tab PO HS Vitals/I & O Vital Sign - Last 24 Hours 12/25/18 12/25/18 12/25/18 12/25/18 19:02 19:59 20:00 20:02 Temp 98.1 98.1 Pulse 67 Resp 16 19 B/P (MAP) 116/57 (76) Pulse Ox 96 99 O2 Delivery Room Air Room Air Room Air Room Air 12/25/18 12/25/18 12/25/18 12/25/18 21:02 21:53 21:53 23:22 Temp 98.9 98.9 Pulse 67 81 Resp 18 18 B/P (MAP) 116/57 155/69 (97) Pulse Ox 99 99 96 O2 Delivery Room Air Room Air Room Air 12/26/18 12/26/18 12/26/18 12/26/18 02:57 05:26 06:26 07:00 Temp 97.9 97.7 97.9 97.7 Pulse 63 67 Resp 18 18 18 16 B/P (MAP) 144/63 (90) 113/49 (70) Pulse Ox 98 98 98 100 O2 Delivery Room Air Room Air Room Air Room Air 12/26/18 12/26/18 12/26/18 12/26/18 08:00 08:56 08:57 11:00 Temp 98.2 98.2 Pulse 67 67 63 Resp 17 B/P (MAP) 113/49 113/49 73/39 (50) Pulse Ox 99 O2 Delivery Room Air Room Air 12/26/18 12/26/18 14:30 15:00 Temp 97.7 97.7 Pulse 67 Resp 18 17 B/P (MAP) 73/64 (67) Pulse Ox 99 O2 Delivery Room Air Room Air Intake and Output 12/25/18 12/25/18 12/26/18 15:01 23:01 07:01 Intake Total 220 ml 700 ml 360 ml Balance 220 ml 700 ml 360 ml Nutrition Consultation Dietary Evaluation: Recommendations by RD: Dietary education by RD, Increase Calorie Intake, Protein supplementation, Add supplement feedings Comments: Educated client on reduced sodium diet Ensure supplement (vanilla) to increase calorie and protein intake Expected Outcomes/Goals: Compliance with Cardiac diet P.O. intake of >75% All questions answered by time of d/c Malnutrition Findings: Food and Nutrition Intake (Mod: <75% est energy req 7days Body Fat Depletion (Non Severe: Mild Depletion Weight Status: Appropriate SARAH YAN MD Dec 26, 2018 15:50
[2018-12-26 19:00] VITALS: BP 124/67
[2018-12-26] MEDS: ESTRADIOL 0.01% VAGINAL CREAM 42.5GM TUBE. VG SCH (20:48)
[2018-12-26] MEDS: MIRTAZAPINE 15 MG TABLET PO SCH (20:48)
[2018-12-26] MEDS: traMADol 50 MG TABLET PO PRN (21:18)
[2018-12-26] MEDS: PANTOPRAZOLE 40 MG TABLET.DR. PO SCH (21:18)
[2018-12-26 23:06] VITALS: BP 133/72
[2018-12-27 03:01] VITALS: BP 161/74
[2018-12-27] MEDS: HYDROcodone/APAP 5/325MG 1 TAB TABLET PO PRN ×2 (04:52→13:00)
[2018-12-27] MEDS: tiZANidine 4 MG TABLET. PO PRN (05:00)
[2018-12-27] MEDS: LEVOTHYROXINE 75 MCG TABLET PO SCH (05:00)
[2018-12-27 07:00] VITALS: BP 104/52
[2018-12-27] MEDS: ACETAMINOPHEN 325 MG TABLET. PO PRN (08:42)
[2018-12-27] MEDS: POTASSIUM CHLORIDE 20 MEQ TABLET.ER. PO SCH (08:43)
[2018-12-27] MEDS: LISINOPRIL 20 MG TABLET PO SCH (08:43)
[2018-12-27] MEDS: FUROSEMIDE 40 MG TABLET. PO SCH ×2 (08:43→09:00)
[2018-12-27] MEDS: LOSARTAN POTASSIUM 50 MG TABLET. PO SCH (08:44)
[2018-12-27] MEDS: TAMOXIFEN 10 MG TABLET PO SCH (08:46)
[2018-12-27] MEDS: HYDROCORTISONE ACETATE 25 MG SUPP.RECT RC SCH (09:00)
[2018-12-27] MEDS: NON FORMULARY ITEM (Linaclotide (Linzess) 145 MCG) PO SCH (09:00)
[2018-12-27] MEDS: ASPIRIN ENTERIC COATED 81 MG TABLET.DR. PO SCH (09:02)
[2018-12-27] MEDS: FLUTICASONE 50MCG/NASAL SPRAY 16GM BOTTLE. NS SCH (09:16)
[2018-12-27 11:00] VITALS: BP 100/54
--- NOTE | 2018-12-27 13:47 | NUR ---
SW following pt for anticipated dc needs. Chart reviewed and SHASHA RN. Pt lives at home with daughter and is on room air. PT/OT recommends Home health. SW will arrange home health if ordered by Physician. Addendum: 12/27/18 at 1350 by RYNE KAUFFMAN Attempted to meet with pt regarding HH options but pt was working with Physical Therapy.
[2018-12-27] MEDS ORDERED: FURO40TA4 PO (14:10)
[2018-12-27] MEDS ORDERED: POTA20TA4 PO (14:10)
[2018-12-27] MEDS ORDERED: TRAM50TA PO (14:10)
--- NOTE | 2018-12-27 14:12 | DISCH ---
DISCHARGE WITH HOME HEALTH DISCHARGE INFORMATION: Discharge Date: Dec 27, 2018 Final Diagnosis: Problems Medical Problems: (1) Bilateral lower extremity edema Status: Acute (2) Intractable pain Status: Acute Condition on Discharge: Stable CODE STATUS: Code Status: Full HOME HEALTH: Face to Face: I certify this patient is under my care and that I, or a nurse practitioner or physician's assistant pastry chef working with me, had a face to face encounter that meets the physician face to face encounter requirements with this patient on []. Medical Complications: DJD Physical Therapy For: Evalulation/Treatment Occupational Therapy For: Evaluation/Treatment Pt Meets Homebound Status: Unsteady balance w/ amb,, Fatigue w/ amb., Limited distance walking POST DISCHARGE ORDERS: Activity Instructions for Disc: Activity as tolerated Weight Bearing Status after Di: Full weight bearing Bathing Instructions: Shower-keep dressing dry DIET AFTER DISCHARGE: Cardiac Wound/Incision Care: Do not change dressing CHECKS AFTER DISCHARGE: Checks after discharge: Check blood press - daily TREATMENT/EQUIPMENT ORDERS: Adaptive Equipment Issued: Quinn CERTIFICATION STATEMENT: Certification Statement: Certification Statement: Based on the above finding, I certify that this patient is confined to the home and needs intermittent fci care, physical therapy and/or speech therapy, or continues to need occupational therapy.~ This patient is under my care, and I have initiated the establishment of the plan of care.~ This patient will be followed by myself or a community physician who will periodically review the plan of care. Home Meds Active Scripts Potassium Chloride (KLOR-CON M20) 20 Meq Tab.er.prt, 20 MEQ PO DAILYWBKFT for hypokalemia for 30 Days, #30 TAB.SR Prov:SARAH YAN MD 12/27/18 Furosemide (FUROSEMIDE) 40 Mg Tablet, 40 MG PO DAILY for edema for 30 Days, #30 TAB Prov:SARAH YAN MD 12/27/18 Tramadol Hcl (TRAMADOL HCL) 50 Mg Tablet, 50 MG PO PRN Q6HRS PRN for MODERATE PAIN for 7 Days, TAB Prov:SARAH YNA MD 12/27/18 Hydrocortisone Acetate (ANUSOL-HC) 25 Mg Supp.rect, 1 SUPP RC BID, #14 SUPP Prov:EVANGELINA MOROCHO MD 10/10/18 Hydrocodone/Apap 5-325 (NORCO 5-325 TABLET) 1 Each Tablet, 1 TAB PO PRN Q6HRS PRN for PAIN, #12 TAB 0 Refills Prov:ANIYAH PARSONS DO 07/02/17 Hydrocortisone Acetate (ANUSOL-HC) 25 Mg Supp.rect, 1 SUPP RC BID, #6 SUPP Prov:ANIYAH PARSONS DO 07/02/17 Acetaminophen (MAPAP) 325 Mg Tablet, 650 MG PO PRN Q6HRS PRN for MILD PAIN / TEMP, #1 TAB 0 Refills Prov:WILBER ITERNEY MD 01/29/16 Fluticasone Propionate (FLUTICASONE PROPIONATE NASAL SPRAY) 16 Gm [place].susp, 1 SPRAY NS DAILY, #1 UNIT 1 Refill Prov:WILBER TIERNEY MD 01/29/16 Linaclotide (LINZESS) 145 Mcg Capsule, 145 MCG PO QODAY, #30 CAP 1 Refill Prov:WILBER TIERNEY MD 01/29/16 Lisinopril (LISINOPRIL) 10 Mg Tablet, 10 MG PO BID, #60 TAB 1 Refill Prov:WILBER TIERNEY MD 01/29/16 Sennosides/Docusate Sodium (STOOL SOFTENER-LAXATIVE TAB) 1 Each Tablet, 1 EACH PO PRN DAILY, #1 TAB-CAP Prov:WILBER TIERNEY MD 01/29/16 Polyethylene Glycol 3350 (POLYETHYLENE GLYCOL 3350) 17 Gm Powd.pack, 17 GM PO DAILY PRN for CONSTIPATION, #1 UNIT Prov:WILBER TIERNEY MD 01/29/16 Levothyroxine Sodium (SYNTHROID) 75 Mcg Tablet, 75 MCG PO DAILY07, #30 TAB Prov:WILBER TIERNEY MD 11/21/15 Lidocaine Hcl (LIDOCAINE HCL) 5 Ml Jel..ml., 1 KAREL TP PRN QID PRN for RECTAL PAIN, #30 GM Prov:WILBER TIERNEY MD 11/21/15 Reported Medications Tamoxifen Citrate (TAMOXIFEN CITRATE) 20 Mg Tablet, 1 TAB PO DAILY for ESTROGEN , #30 TAB 5 Refills 12/23/18 Olmesartan Medoxomil (BENICAR) 40 Mg Tablet, 40 MG PO DAILY PRN for HTN, TAB 12/23/18 Nebivolol Hcl (BYSTOLIC) 10 Mg Tablet, 10 MG PO DAILY for HTN, TAB 12/23/18 Estradiol (ESTRACE) 42.5 Gm Cream.appl, 1 GM VG DAILY, #1 EACH 3 Refills 01/22/16 Hydroxyzine Hcl (HYDROXYZINE HCL) 10 Mg Tablet, 10 MG PO PRN QID PRN for SEE COMMENTS, TAB 01/22/16 Tamoxifen Citrate (TAMOXIFEN CITRATE) 20 Mg Tablet, 20 MG PO DAILY 08/15/15 Omeprazole (OMEPRAZOLE) 20 Mg Tablet., 1 TAB PO HS for HEARTBURN / GAS, TAB 10/10/14 SARAH YAN MD Dec 27, 2018 14:11
--- NOTE | 2018-12-27 14:19 | PDOC3 ---
Discharge Summary Visit Information Date of Admission: Dec 22, 2018 Date of Discharge: Dec 27, 2018 Admitting Diagnosis: lower extremity edema Final Diagnosis Problems Medical Problems: (1) Bilateral lower extremity edema Status: Acute (2) Intractable pain Status: Acute Brief Hospital Course Allergies Allergies Coded Allergies Type Severity Reaction Last Updated Verified amoxicillin trihydrate Allergy Intermediate Hives 01/23/16 Yes metronidazole Allergy Intermediate Nausea and Vomiting 01/23/16 Yes potassium clavulanate Allergy Intermediate Hives 01/23/16 Yes ranitidine Allergy Intermediate 07/02/17 Yes Vital Signs Vital Signs Date Time Temp Pulse Resp B/P (MAP) Pulse Ox O2 Delivery O2 Flow Rate FiO2 12/27/18 13:00 Room Air 12/27/18 11:00 97.4 60 16 100/54 (69) 99 97.4 Brief Hospital Course Mrs. Martin Landeros is an 83-year-old female who was admitted with the following diagnosis: Chronic lower extremity edema. Ultrasound shows no DVT. Improving with diuresis. TEDS as above. Probable mild diastolic heart failure. Echocardiogram with an ejection fraction of 50%. No significant valvular disease. X-ray shows no significant vascular congestion. Accelerated hypertension. Improved Breast cancer status post mastectomy. Patient apparently has not follow-up with oncology for at least 2 years. Hypothyroidism with a TSH of 0.097. but no signs of hyperthyroidism Patient was seen in consultation by cardiology, no further testing was deemed appropriate from their standpoint of view given that her lower extremity edema responded very well to diuretic therapy that we had instituted at the beginning of her hospital stay. The patient continued to complain about lower extremity pain and she received tramadol that seemed to work on her. I have provided a prescription for the medication upon discharge and she has recommendations to follow up with her primary care physician in follow-up within 1 week. Signs and symptoms of alarm were discussed with the patient prior to discharge she is in good spirits to be dismissed home a muscle relaxant was prescribed as part of her treatment plan moving forward as well. ALL CONCERNS WERE ADDRESSED TO THE BEST OF MY ABILITIES Lungs were clear to auscultation bilaterally with good inspiratory effort cardiovascularly S1-S2 regular rhythm no murmurs or rubs Discharge Information Condition at Discharge: Improved Follow Up: Weeks (primary care physician in one week) Disposition/Orders: D/C to Another Facility Scheduled Estradiol (Estrace) 42.5 Gm Cream.appl, 1 GM VG DAILY, #1 Ref 3 (Reported) Entered as Reported by: ROLY DOUGHERTY on 01/22/16 0712 Last Taken: Unknown Dose on Unknown Date & Time Last Action: Last Taken Edited on 12/23/181258 by JUSTYNA MUÑOZ Fluticasone Propionate (Fluticasone Propionate Nasal [place]) 16 Gm [place].susp, 1 SPRAY NS DAILY, #1 Ref 1 Prescribed by: WILBER TIERNEY on 01/29/16827 Last Taken: Unknown Dose on Unknown Date & Time Last Action: Last Taken Edited on 12/23/181258 by JUSTYNA MUÑOZ Furosemide (Furosemide) 40 Mg Tablet, 40 MG PO DAILY for edema for 30 Days, #30 Prescribed by: SARAH YAN MD on 12/27/18 1410 Hydrocortisone Acetate (Anusol-Hc) 25 Mg Supp.rect, 1 SUPP RC BID, #6 Prescribed by: ANIYAH PARSONS on 07/02/17 0835 Last Taken: Unknown Dose on 12/15/18 2100 Last Action: Last Taken Edited on 12/23/181258 by JUSTYNA MUÑOZ Hydrocortisone Acetate (Anusol-Hc) 25 Mg Supp.rect, 1 SUPP RC BID, #14 Prescribed by: EVANGELINA MOROCHO MD on 10/10/18 0508 Last Action: Converted on 12/23/18 1116 by JUSTYNA MUÑOZ Levothyroxine Sodium (Synthroid) 75 Mcg Tablet, 75 MCG PO DAILY07, #30 Prescribed by: WILBER TIERNEY on 11/21/15 1323 Last Taken: Unknown Dose on 12/22/18 0900 Last Action: Last Taken Edited on 12/23/181258 by JUSTYNA MUÑOZ Linaclotide (Linzess) 145 Mcg Capsule, 145 MCG PO QODAY, #30 Ref 1 Prescribed by: WILBER TIERNEY on 01/29/16 08 Last Taken: Unknown Dose on 12/22/18 0900 Last Action: Last Taken Edited on 12/23/181258 by JUSTYNA MUÑOZ Lisinopril (Lisinopril) 10 Mg Tablet, 10 MG PO BID, #60 Ref 1 Prescribed by: WILBER TIERNEY on 01/29/16827 Last Action: Last Taken Edited on 12/23/181258 by JUSTYNA MUÑOZ Nebivolol Hcl (Bystolic) 10 Mg Tablet, 10 MG PO DAILY for HTN, (Reported) Entered as Reported by: SANDI ELMORE on 12/23/1850 Last Taken: Unknown Dose on 12/22/18899 Last Action: Last Taken Edited on 12/23/181258 by JUSTYNA MUÑOZ Omeprazole (Omeprazole) 20 Mg Tablet.dr, 1 TAB PO HS for HEARTBURN / GAS, ( Reported) Entered as Reported by: YANIQUE FERNANDEZ on 10/10/14 0949 Last Taken: Unknown Dose on 12/22/18899 Last Action: Last Taken Edited on 12/23/181258 by JUSTYNA MUÑOZ Potassium Chloride (Klor-Con M20) 20 Meq Tab.er.prt, 20 MEQ PO DAILYWBKFT for hypokalemia for 30 Days, #30 Prescribed by: SARAH YAN MD on 12/27/18 1410 Sennosides/Docusate Sodium (Stool Softener-Laxative Tab) 1 Each Tablet, 1 EACH PO PRN DAILY, #1 Prescribed by: WILBER TIERNEY on 01/29/16827 Last Taken: Unknown Dose on Unknown Date & Time Last Action: Last Taken Edited on 12/23/181258 by JUSTYNA MUÑOZ Tamoxifen Citrate (Tamoxifen Citrate) 20 Mg Tablet, 20 MG PO DAILY, (Reported) Entered as Reported by: ANIYAH ANDERSON on 08/15/15 0957 Last Action: Converted on 12/23/18 1116 by JUSTYNA MUÑOZ Tamoxifen Citrate (Tamoxifen Citrate) 20 Mg Tablet, 1 TAB PO DAILY for ESTROGEN , #30 Ref 5 (Reported) Entered as Reported by: SANDI ELMORE on 12/23/1850 Last Taken: Unknown Dose on 12/22/18899 Last Action: Last Taken Edited on 12/23/181258 by JUSTYNA MUÑOZ Scheduled PRN Acetaminophen (Mapap) 325 Mg Tablet, 650 MG PO PRN Q6HRS PRN for MILD PAIN / TEMP, #1 Ref 0 Prescribed by: WILBER TIERNEY on 01/29/16827 Last Taken: Unknown Dose on Unknown Date & Time Last Action: Last Taken Edited on 12/23/181258 by JUSTYNA MUÑOZ Hydrocodone/Apap 5-325 ([place] 5-325 Tablet) 1 Each Tablet, 1 TAB PO PRN Q6HRS PRN for PAIN, #12 Ref 0 Prescribed by: ANIYAH PARSONS on 07/02/17 0835 Last Taken: Unknown Dose on Unknown Date & Time Last Action: Last Taken Edited on 12/23/181258 by JUSTYNA MUÑOZ Hydroxyzine Hcl (Hydroxyzine Hcl) 10 Mg Tablet, 10 MG PO PRN QID PRN for SEE COMMENTS, (Reported) Entered as Reported by: ROLY DOUGHERTY on 01/22/16 0708 Last Taken: Unknown Dose on 12/22/18 09 Last Action: Last Taken Edited on 12/23/181258 by JUSTYNA MUÑOZ Lidocaine Hcl (Lidocaine Hcl) 5 Ml Jel..ml., 1 KAREL TP PRN QID PRN for RECTAL PAIN, #30 Prescribed by: WILBER TIERNEY on 11/21/15 1323 Last Taken: Unknown Dose on 12/22/18899 Last Action: Last Taken Edited on 12/23/181258 by JUSTYNA MUÑOZ Olmesartan Medoxomil (Benicar) 40 Mg Tablet, 40 MG PO DAILY PRN for HTN, ( Reported) Entered as Reported by: SANDI ELMORE on 12/23/18 0051 Last Taken: Unknown Dose on 12/22/18899 Last Action: Last Taken Edited on 12/23/181258 by JUSTYNA MUÑOZ Polyethylene Glycol 3350 (Polyethylene Glycol 3350) 17 Gm Powd.pack, 17 GM PO DAILY PRN for CONSTIPATION, #1 Prescribed by: WILBER TIERNEY on 01/29/16 0828 Last Taken: Unknown Dose on Unknown Date & Time Last Action: Last Taken Edited on 12/23/181258 by JUSTYNA MUÑOZ Tramadol Hcl (Tramadol Hcl) 50 Mg Tablet, 50 MG PO PRN Q6HRS PRN for MODERATE PAIN for 7 Days Prescribed by: SARAH YAN MD on 12/27/18 1410 SARAH YAN MD Dec 27, 2018 14:19
[2018-12-27 15:00] VITALS: BP 102/50
--- NOTE | 2018-12-27 15:33 | NUR ---
SW following. Spoke with pt regarding HH and she does not have preference. Pt agreeable with [facility]. JAMARI phoned and faxed orders to [facility] and pt has been accepted. Pt requested transportation and confirmed she has her house bear with her. RN to assist with setting up transport. Pt agreeable with dc plan.
--- NOTE | 2018-12-27 15:38 | NUR ---
Patient's daughter Leticia called regards patient discharge to home with Home Health. Social Work Robert has discussed HH with patient, see orders and notes. Patient and daughter requested transport home. Will contact patient's daughter once transport arranged. Discharge instructions, medications and prescriptions reviewed with patient. She verb. understanding all instructions and denies questions.
--- NOTE | 2018-12-27 15:41 | NUR ---
Neela Adam full for today. Message left with [facility] to return call for patient transport.
--- NOTE | 2018-12-27 16:13 | NUR ---
[facility] called again and transport set up for patient to p/u about 6pm to 6:30pm. Patient notified and patient's daughter Leticia notified, to be available at that time for when patient arrives home. Patient's daughter Leticia lives with patient.
--- NOTE | 2018-12-27 16:41 | NUR ---
Patient received all instructions and prescriptions and her belongings are packed and she is ready for discharge when [facility] arrives. Will notify her daughter Leticia when patient leaves the hospital.
--- NOTE | 2018-12-27 19:42 | NUR ---
Discharge Note: KYRIE ROGEL Discharge instructions and discharge home medications reviewed with Patient and a copy given. All questions have been answered and understanding verbalized. The following instructions and handouts were given: Discontinued lines and drains: PERIPHERAL IV Patient discharged to Home w/services with Ambulance Personnel via Wheelchair
== END 2018-12-27 19:46 | disposition home health service (06) | DRG 304 ==
LOC: ER 17:34 → 5 NORTH 21:30
PROVIDERS: ADMIT Internal Medicine; ATTEND Internal Medicine
DX: I16.1 Hypertensive emergency (principal); I50.33 Acute on chronic diastolic (congestive) heart failure; I11.0 Hypertensive heart disease with heart failure; G62.9 Polyneuropathy, unspecified; E03.9 Hypothyroidism, unspecified; M19.90 Unspecified osteoarthritis, unspecified site; I89.0 Lymphedema, not elsewhere classified; F41.9 Anxiety disorder, unspecified; K21.9 Gastro-esophageal reflux disease without esophagitis; E78.5 Hyperlipidemia, unspecified; G25.81 Restless legs syndrome; Z90.711 Acquired absence of uterus with remaining cervical stump; Z85.3 Personal history of malignant neoplasm of breast; Z90.12 Acquired absence of left breast and nipple; Z88.8 Allergy status to other drugs, medicaments and biological substances; Z88.0 Allergy status to penicillin; Z82.49 Family history of ischemic heart disease and other diseases of the circulatory system; Z83.3 Family history of diabetes mellitus
CPT/HCPCS: 36415; 71045; 80048; 80053; 81001; 82553; 83735; 83880; 84443; 84484; 85025; 85610; 85730; 93005; 93306; 93970; 96374; 96375; J1940; J2270; 97116; 97530; 97535; 99285-25

== ENCOUNTER 2019-06-12 22:18 | Emergency (ER) | payer MEDICARE, OTHER ==
[~2019-06-12] VITALS: Ht 154.9 cm; Wt 52.2 kg
[~2019-06-12 22:18] MED LIST changes: +FURO40TA4 PO; +OLME40TA12 PO; +POTA20TA4 PO; +TRAM50TA PO
[2019-06-12] MEDS ORDERED: HYDROcodone/APAP 5/325MG 1 TAB TABLET PO ONE (22:45)
--- NOTE | 2019-06-12 22:46 | PHYS DOC ---
Past Medical History Past Medical History: Arthritis, Cancer, Constipation, Hypertension, Other Additional Past Medical Histor: IRREGULAR HEARTBEAT, PROLAPSED BLADDER, ULCERS, THYROID DZ (ARSEN VILLA APRN) Past Surgical History: Other Additional Past Surgical Histo: PARTIAL HYSTERECTOMY,RECENT BLADDER SLING SURGERY,L BREAST MASTECTOMY (ARSEN VILLA APRN) Alcohol Use: None Drug Use: None (ARSEN VILLA APRN) Adult General Chief Complaint Chief Complaint: BACK PAIN OR INJURY HPI HPI Patient is a 84 year old female who presents with chronic low back pain and leg pain. Patient states that she currently has home physical therapy for this. Patient states she does not have any pain medication she was against hydrocodone. Patient rates her pain a 9 out of 10. Patient states it is sharp and usually shoots down the back of both of her legs. Patient states at this time she doesn't have any pain that shoots down the back of her legs but the low back pain is keeping her awake. Patient states that she also thinks that her legs are hurting because her potassium is too low. Patient states that her urine is also very strong odor and has burning with urination that started in this last week. Patient denies fevers. (ARSEN VILLA CHIEF RADIATION THERAPIST) Review of Systems Review of Systems Constitutional: Denies fever or chills [] Eyes: Denies change in visual acuity, redness, or eye pain [] HENT: Denies nasal congestion or sore throat [] Respiratory: Denies cough or shortness of breath [] Cardiovascular: No additional information not addressed in HPI [] GI: Denies abdominal pain, nausea, vomiting, bloody stools or diarrhea [] : Denies dysuria or hematuria [] Musculoskeletal: low back pain, bilateral lower back pain or joint pain [] Integument: Denies rash or skin lesions [] Neurologic: Denies headache, focal weakness or sensory changes [] Endocrine: Denies polyuria or polydipsia [] All other systems were reviewed and found to be within normal limits, except as documented in this note. (ARSEN VILLA APRN) Current Medications Current Medications Current Medications Medications (Trade) Dose Ordered Sig/Taj Start Time Stop Time Status Last Admin Dose Admin Acetaminophen/ Hydrocodone Bitart (Lortab 5/325) 1 tab 1X ONCE 06/12/19 22:45 06/12/19 22:46 DC 06/12/19 22:46 1 TAB (BRAVO CHA DO) Allergies Allergies Allergies Coded Allergies Type Severity Reaction Last Updated Verified amoxicillin trihydrate Allergy Intermediate Hives 01/23/16 Yes metronidazole Allergy Intermediate Nausea and Vomiting 01/23/16 Yes potassium clavulanate Allergy Intermediate Hives 01/23/16 Yes ranitidine Allergy Intermediate 07/02/17 Yes (BRAVO CHA DO) Physical Exam Physical Exam Constitutional: Well developed, well nourished, no acute distress, non-toxic appearance. [] HENT: Normocephalic, atraumatic, bilateral external ears normal, oropharynx moist, no oral exudates, nose normal. [] Eyes: PERRLA, EOMI, conjunctiva normal, no discharge. [] Neck: Normal range of motion, no tenderness, supple, no stridor. [] Cardiovascular:Heart rate regular rhythm, no murmur [] Lungs & Thorax: Bilateral breath sounds clear to auscultation [] Abdomen: Bowel sounds normal, soft, no tenderness, no masses, no pulsatile masses. [] Skin: Warm, dry, no erythema, no rash. [] Back: lumbar tenderness, no CVA tenderness. [] Extremities: No tenderness, no cyanosis, no clubbing, ROM intact, no edema. [] Neurologic: Alert and oriented X 3, normal motor function, normal sensory function, no focal deficits noted. [] Psychologic: Affect normal, judgement normal, mood normal. [] (ARSEN VILLA APRN) Current Patient Data Vital Signs Vital Signs Date Time Temp Pulse Resp B/P (MAP) Pulse Ox O2 Delivery O2 Flow Rate FiO2 06/13/19 00:45 69 20 182/85 (117) 97 06/12/19 22:23 98.3 Room Air 98.3 (CHABRAVO DEWITT DO) Lab Values Laboratory Tests Test 06/12/19 23:10 06/12/19 23:30 White Blood Count 5.5 x10^3/uL (4.0-11.0) Red Blood Count 3.17 x10^6/uL (3.50-5.40) L Hemoglobin 9.8 g/dL (12.0-15.5) L Hematocrit 29.5 % (36.0-47.0) L Mean Corpuscular Volume 93 fL (79-100) Mean Corpuscular Hemoglobin 31 pg (25-35) Mean Corpuscular Hemoglobin Concent 33 g/dL (31-37) Red Cell Distribution Width 13.9 % (11.5-14.5) Platelet Count 183 x10^3/uL (140-400) Neutrophils (%) (Auto) 55 % (31-73) Lymphocytes (%) (Auto) 30 % (24-48) Monocytes (%) (Auto) 13 % (0-9) H Eosinophils (%) (Auto) 1 % (0-3) Basophils (%) (Auto) 1 % (0-3) Neutrophils # (Auto) 3.0 x10^3/uL (1.8-7.7) Lymphocytes # (Auto) 1.7 x10^3/uL (1.0-4.8) Monocytes # (Auto) 0.7 x10^3/uL (0.0-1.1) Eosinophils # (Auto) 0.1 x10^3/uL (0.0-0.7) Basophils # (Auto) 0.0 x10^3/uL (0.0-0.2) Sodium Level 144 mmol/L (136-145) Potassium Level 3.7 mmol/L (3.5-5.1) Chloride Level 106 mmol/L (98-107) Carbon Dioxide Level 31 mmol/L (21-32) Anion Gap 7 (6-14) Blood Urea Nitrogen 14 mg/dL (7-20) Creatinine 0.9 mg/dL (0.6-1.0) Estimated GFR (Cockcroft-Gault) 72.5 BUN/Creatinine Ratio 16 (6-20) Glucose Level 89 mg/dL (70-99) Calcium Level 9.0 mg/dL (8.5-10.1) Total Bilirubin 0.3 mg/dL (0.2-1.0) Aspartate Amino Transferase (AST) 17 U/L (15-37) Alanine Aminotransferase (ALT) 10 U/L (14-59) L Alkaline Phosphatase 41 U/L (46-116) L Total Protein 6.6 g/dL (6.4-8.2) Albumin 3.2 g/dL (3.4-5.0) L Albumin/Globulin Ratio 0.9 (1.0-1.7) L Urine Collection Type Unknown Urine Color Yellow Urine Clarity Cloudy Urine pH 7.5 Urine Specific [place] 1.010 Urine Protein Negative mg/dL (NEG-TRACE) Urine Glucose (UA) Negative mg/dL (NEG) Urine Ketones (Stick) Negative mg/dL (NEG) Urine Blood Negative (NEG) Urine Nitrite Negative (NEG) Urine Bilirubin Negative (NEG) Urine Urobilinogen Dipstick 0.2 mg/dL (0.2 mg/dL) Urine Leukocyte Esterase Negative (NEG) Urine RBC Occ /HPF (0-2) Urine WBC Occ /HPF (0-4) Urine Squamous Epithelial Cells Few /LPF Urine Bacteria Few /HPF (0-FEW) Urine Mucus Slight /LPF Laboratory Tests 06/12/19 23:10 Laboratory Tests 06/12/19 23:10 (BRAVO CHA DO) Lab Values Laboratory Tests Test 06/12/19 23:10 06/12/19 23:30 White Blood Count 5.5 x10^3/uL (4.0-11.0) Red Blood Count 3.17 x10^6/uL (3.50-5.40) L Hemoglobin 9.8 g/dL (12.0-15.5) L Hematocrit 29.5 % (36.0-47.0) L Mean Corpuscular Volume 93 fL (79-100) Mean Corpuscular Hemoglobin 31 pg (25-35) Mean Corpuscular Hemoglobin Concent 33 g/dL (31-37) Red Cell Distribution Width 13.9 % (11.5-14.5) Platelet Count 183 x10^3/uL (140-400) Neutrophils (%) (Auto) 55 % (31-73) Lymphocytes (%) (Auto) 30 % (24-48) Monocytes (%) (Auto) 13 % (0-9) H Eosinophils (%) (Auto) 1 % (0-3) Basophils (%) (Auto) 1 % (0-3) Neutrophils # (Auto) 3.0 x10^3/uL (1.8-7.7) Lymphocytes # (Auto) 1.7 x10^3/uL (1.0-4.8) Monocytes # (Auto) 0.7 x10^3/uL (0.0-1.1) Eosinophils # (Auto) 0.1 x10^3/uL (0.0-0.7) Basophils # (Auto) 0.0 x10^3/uL (0.0-0.2) Sodium Level 144 mmol/L (136-145) Potassium Level 3.7 mmol/L (3.5-5.1) Chloride Level 106 mmol/L (98-107) Carbon Dioxide Level 31 mmol/L (21-32) Anion Gap 7 (6-14) Blood Urea Nitrogen 14 mg/dL (7-20) Creatinine 0.9 mg/dL (0.6-1.0) Estimated GFR (Cockcroft-Gault) 72.5 BUN/Creatinine Ratio 16 (6-20) Glucose Level 89 mg/dL (70-99) Calcium Level 9.0 mg/dL (8.5-10.1) Total Bilirubin 0.3 mg/dL (0.2-1.0) Aspartate Amino Transferase (AST) 17 U/L (15-37) Alanine Aminotransferase (ALT) 10 U/L (14-59) L Alkaline Phosphatase 41 U/L (46-116) L Total Protein 6.6 g/dL (6.4-8.2) Albumin 3.2 g/dL (3.4-5.0) L Albumin/Globulin Ratio 0.9 (1.0-1.7) L Urine Collection Type Unknown Urine Color Yellow Urine Clarity Cloudy Urine pH 7.5 Urine Specific [place] 1.010 Urine Protein Negative mg/dL (NEG-TRACE) Urine Glucose (UA) Negative mg/dL (NEG) Urine Ketones (Stick) Negative mg/dL (NEG) Urine Blood Negative (NEG) Urine Nitrite Negative (NEG) Urine Bilirubin Negative (NEG) Urine Urobilinogen Dipstick 0.2 mg/dL (0.2 mg/dL) Urine Leukocyte Esterase Negative (NEG) Urine RBC Occ /HPF (0-2) Urine WBC Occ /HPF (0-4) Urine Squamous Epithelial Cells Few /LPF Urine Bacteria Few /HPF (0-FEW) Urine Mucus Slight /LPF Laboratory Tests 06/12/19 23:10 Laboratory Tests 06/12/19 23:10 (ARSEN VILLA APRN) EKG EKG [] (ARSEN VLILA APRN) Radiology/Procedures Radiology/Procedures [] (ARSEN VILLA APRN) Course & Med Decision Making Course & Med Decision Making Patient is a 84 year old female who presents with chronic low back pain and leg pain. Patient states that she currently has home physical therapy for this. Patient states she does not have any pain medication she was against hydrocodone. Patient rates her pain a 9 out of 10. Patient states it is sharp and usually shoots down the back of both of her legs. Patient states at this time she doesn't have any pain that shoots down the back of her legs but the low back pain is keeping her awake. Patient states that she also thinks that her legs are hurting because her potassium is too low. Patient states that her urine is also very strong odor and has burning with urination that started in this last week. Patient denies fevers. Alert and oriented. Skin pink warm and dry. Abdomen is soft and nontender. Patient states she feels some pressure with palpation to her low mid abdomen. Patient denies nausea, vomiting, fevers, abdominal pain, dizziness, falls, chest pain, shortness of breath. Patient has lower leg extremity edema 3+ patient states this is normal for her and that she is on a "water pill". Lungs are clear to auscultation all lobes. Vital signs are within normal limits. She is afebrile. Patient has tenderness with palpation to her bilateral lower back but no tenderness to palpation in her legs bilaterally. Patient is able to roll around and moved in bed as she did this for me while I was doing my examination. Patient refusing straight cath. Patient will be given cleaning instruction before to does a clean catch. Blood work unremarkable. Urinalysis shows no infection is sent off for culture. Patient will be given hydrocodone as she states this is what her doctor gave her and she is currently out of the medication. Patient to follow up with her primary care provider. (ARSEN VILLA APRN) Dragon Disclaimer Dragon Disclaimer This electronic medical record was generated, in whole or in part, using a voice recognition dictation system. (ARSEN VILLA APRN) Departure Departure Impression: Primary Impression: Chronic low back pain Disposition: HOME, SELF-CARE Condition: STABLE Referrals: WILBER TIERNEY MD (PCP) Patient Instructions: Back Pain, Adult, Back Pain, Child Additional Instructions: Follow-up with primary care provider. Take medication as prescribed. Scripts Hydrocodone/Apap 5-325 (NORCO 5-325 TABLET) 1 Each Tablet 1 TAB PO PRN Q6HRS PRN for PAIN, #8 TAB 0 Refills Prov: ARSEN VILLA APRN 06/13/19 Attending Signature Attending Signature I have reviewed the PA/NUT CULLER's note and plan of care. I was available for consultation as needed during the patient's visit in the emergency department. I agree with the clinical impression, plan, and disposition. (BRAVO CHA DO) Problem Qualifiers Primary Impression: Chronic low back pain Back pain laterality: bilateral Sciatica presence: with sciatica Sciatica laterality: bilateral sciatica Qualified Codes: M54.42 - Lumbago with sciatica, left side; M54.41 - Lumbago with sciatica, right side; G89.29 - Other chronic pain ARSEN VILLA APRN Jun 12, 2019 22:46 BRAVO CHA DO Jun 14, 2019 04:12
[2019-06-12 23:19] LABS: BASO % 1 % (0-3); EOS # 0.1 x10^3/uL (0.0-0.7); EOS % 1 % (0-3); HEMATOCRIT 29.5 % (36.0-47.0); HEMOGLOBIN 9.8 g/dL (12.0-15.5); LYMPH # 1.7 x10^3/uL (1.0-4.8); LYMPH % 30 % (24-48); MEAN CORPUSCULAR HEMOGLOBIN 31 pg (25-35); MEAN CORPUSCULAR HGB CONC 33 g/dL (31-37); MEAN CORPUSCULAR VOLUME 93 fL (79-100); MONO # 0.7 x10^3/uL (0.0-1.1); MONO % 13 % (0-9); NEUT % 55 % (31-73); PLATELET COUNT 183 x10^3/uL (140-400); RED BLOOD COUNT 3.17 x10^6/uL (3.50-5.40); RED CELL DISTRIBUTION WIDTH 13.9 % (11.5-14.5); WHITE BLOOD COUNT 5.5 x10^3/uL (4.0-11.0)
[2019-06-12 23:32] LABS: CREATININE 0.9 mg/dL (0.6-1.0); GFR 72.5; POTASSIUM 3.7 mmol/L (3.5-5.1)
[2019-06-12 23:34] LABS: ALBUMIN 3.2 g/dL (3.4-5.0); ALBUMIN/GLOBULIN RATIO 0.9 (1.0-1.7); TOTAL BILIRUBIN 0.3 mg/dL (0.2-1.0); TOTAL PROTEIN 6.6 g/dL (6.4-8.2)
[2019-06-12 23:35] LABS: BILIRUBIN,URINE NEGATIVE (NEG); CLARITY,URINE CLOUDY; COLOR,URINE YELLOW; NITRITE,URINE NEGATIVE (NEG); PH,URINE 7.5; PROTEIN,URINE NEGATIVE (NEG-TRACE); UROBILINOGEN,URINE 0.2 mg/dL (0.2 mg/dL)
[2019-06-12 23:41] LABS: BACTERIA,URINE FEW /HPF (0-FEW); RBC,URINE OCC /HPF (0-2); SQUAMOUS EPITHELIAL CELL,UR FEW /LPF; WBC,URINE OCC /HPF (0-4)
[2019-06-13] MEDS ORDERED: HYDR-3164 PO (00:01)
[2019-06-13 00:45] VITALS: BP 182/85
== END 2019-06-13 01:16 | disposition home or self-care (01) ==
LOC: ER 22:18
DX: G89.29 Other chronic pain (principal); M54.41 Lumbago with sciatica, right side; M19.90 Unspecified osteoarthritis, unspecified site; I10 Essential (primary) hypertension; Z90.710 Acquired absence of both cervix and uterus; Z90.12 Acquired absence of left breast and nipple; Z88.1 Allergy status to other antibiotic agents; Z88.8 Allergy status to other drugs, medicaments and biological substances
CPT/HCPCS: 36415; 80053; 81001; 85025; 99284

== ENCOUNTER 2020-11-05 02:10 | Observation (INO) | payer MEDICARE, OTHER ==
[~2020-11-05] VITALS: Ht 160 cm; Wt 47.7 kg
[~2020-11-05 02:10] MED LIST changes: +ACET-2061 PO; -ACET325T16 PO; -LEVO75TA PO; +LEVO75TA90 PO; +NIFE90TA49 PO; -NIFE90TA9 PO
--- NOTE | 2020-11-05 02:27 | EKG ---
[facility] [address] [place] [address] Test Date: 2020-11-05 Test Time: 02:22:22 Pat Name: KYRIE ROGEL Department: Room: Gender: F Metalsmith: : 1935 Requested By: ALIS NEAL Order Number: [id number] Reading MD: Measurements Intervals Florien Rate: 65 P: WA: QRS: 39 QRSD: 78 T: 253 QT: 404 QTc: 425 Interpretive Statements ATRIAL FLUTTER QRS(T) CONTOUR ABNORMALITY CONSIDER ANTEROLATERAL MYOCARDIAL DAMAGE T ABNORMALITY IN INFEROLATERAL LEADS ABNORMAL ECG RI6.02 Compared to ECG 11/05/2020 02:20:29 T-wave abnormality now present
[2020-11-05 02:33] LABS: BASO % 1 % (0-3); EOS # 0.1 x10^3/uL (0.0-0.7); EOS % 1 % (0-3); HEMATOCRIT 31.9 % (36.0-47.0); HEMOGLOBIN 10.6 g/dL (12.0-15.5); LYMPH # 0.9 x10^3/uL (1.0-4.8); LYMPH % 18 % (24-48); MEAN CORPUSCULAR HEMOGLOBIN 31 pg (25-35); MEAN CORPUSCULAR HGB CONC 33 g/dL (31-37); MEAN CORPUSCULAR VOLUME 92 fL (79-100); MONO # 0.5 x10^3/uL (0.0-1.1); MONO % 10 % (0-9); NEUT # 3.3 x10^3/uL (1.8-7.7); NEUT % 70 % (31-73); PLATELET COUNT 211 x10^3/uL (140-400); RED BLOOD COUNT 3.46 x10^6/uL (3.50-5.40); RED CELL DISTRIBUTION WIDTH 14.1 % (11.5-14.5); WHITE BLOOD COUNT 4.7 x10^3/uL (4.0-11.0)
[2020-11-05 02:44] LABS: CALCIUM 9.1 mg/dL (8.5-10.1); CREATININE 1.3 mg/dL (0.6-1.0); GFR 47.3; POTASSIUM 3.5 mmol/L (3.5-5.1)
[2020-11-05 02:51] LABS: ALBUMIN 3.8 g/dL (3.4-5.0); ALBUMIN/GLOBULIN RATIO 1.1 (1.0-1.7); TOTAL BILIRUBIN 0.3 mg/dL (0.2-1.0); TOTAL PROTEIN 7.3 g/dL (6.4-8.2)
--- NOTE | 2020-11-05 03:01 | RAD ---
Single view chest dated 11/05/2020. Comparison made to 12/22/2018. CLINICAL INDICATION: Chest pain. FINDINGS: Single upright portable exam performed. Heart and mediastinal contours are stable. There are some pro minent linear markings at the bilateral upper lobes with biapical scarring, unchanged. No new infiltr ate or pleural effusion. No pneumothorax. There are a few scattered calcified granuloma. Chronic dege nerative and erosive changes at the right shoulder joint, similar to prior study. Impression: 1. No acute radiographic abnormality. 2. Findings consistent with COPD with biapical scarring, unchanged prior study Electronically signed by: Mendoza Underwood MD (11/05/2020 2:59 AM) [facility]
[2020-11-05 03:07] LABS: BILIRUBIN,URINE SMALL (NEG); CLARITY,URINE CLOUDY; COLOR,URINE AMBER; NITRITE,URINE NEGATIVE (NEG); PH,URINE 5.5 (<5.0-8.0); PROTEIN,URINE 30 mg/dL (NEG-TRACE)
[2020-11-05 03:14] LABS: BACTERIA,URINE MANY /HPF (0-FEW)
[2020-11-05 03:15] LABS: HYALINE CASTS, URINE MODERATE /HPF
[2020-11-05] MEDS ORDERED: MORPHINE SULFATE 4 MG/ML VIAL. IV ONE (04:30)
--- NOTE | 2020-11-05 04:40 | PHYS DOC ---
Past Medical History Past Medical History: Arthritis, Cancer, Constipation, Hypertension, Other Additional Past Medical Histor: IRREGULAR HEARTBEAT, PROLAPSED BLADDER, ULCERS, THYROID DZ Past Surgical History: Other Additional Past Surgical Histo: PARTIAL HYSTERECTOMY,RECENT BLADDER SLING SURGERY,L BREAST MASTECTOMY Smoking Status: Never Smoker Alcohol Use: None Drug Use: None General Adult EDM: Chief Complaint: CHEST PAIN HPI: HPI: Patient is a 85 year old female who presented to ER by EMS due to chest pain. Per family, patient was sitting in her recliner, she could not get out of recliner because of the chest pain. EMS were called to take her here for evaluation. Patient is a very poor historian, most of history was obtained from her daughter who called here to provide information. There is no report of cough or fever, no recent exposure to anybody who tested positive for COVID-19. Review of Systems: Review of Systems: Constitutional: Denies fever or chills. [] Eyes: Denies change in visual acuity. [] HENT: Denies nasal congestion or sore throat. [] Respiratory: Denies cough or shortness of breath. [] Cardiovascular: Positive for chest pain, and lower leg edema.] GI: Denies abdominal pain, nausea, vomiting, bloody stools or diarrhea. [] : Denies dysuria. [] Musculoskeletal: Denies back pain or joint pain. [] Integument: Denies rash. [] Neurologic: Denies headache, focal weakness or sensory changes. [] Endocrine: Denies polyuria or polydipsia. [] Lymphatic: Denies swollen glands. [] Psychiatric: Denies depression or anxiety. [] Heart Score: HEART Score for Chest Pain: HEART Score for Chest Pain Response (Comments) Value History Moderately Suspicious 1 ECG Nonspecific Repolarizatio 1 Age > 65 2 Risk Factors >3 Risk Factors or Hx CAD 2 Troponin < Normal Limit 0 Total 6 Risk Factors: Risk Factors: DM, Current or recent (<one month) smoker, HTN, HLP, family history of CAD, obesity. Risk Scores: Score 0 - 3: 2.5% MACE over next 6 weeks - Discharge Home Score 4 - 6: 20.3% MACE over next 6 weeks - Admit for Clinical Observation Score 7 - 10: 72.7% MACE over next 6 weeks - Early Invasive Strategies Current Medications: Current Medications Medications (Trade) Dose Ordered Sig/Taj Start Time Stop Time Status Last Admin Dose Admin Morphine Sulfate (Morphine Sulfate) 4 mg 1X ONCE 11/05/20 04:30 11/05/20 04:31 DC 11/05/20 04:03 4 MG Allergies: Allergies: Allergies Coded Allergies Type Severity Reaction Last Updated Verified amoxicillin trihydrate Allergy Intermediate Hives 01/23/16 Yes metronidazole Allergy Intermediate Nausea and Vomiting 01/23/16 Yes potassium clavulanate Allergy Intermediate Hives 01/23/16 Yes ranitidine Allergy Intermediate 07/02/17 Yes Physical Exam: PE: Constitutional: Well developed, well nourished, no acute distress, non-toxic appearance. [] HENT: Normocephalic, atraumatic, bilateral external ears normal, oropharynx moist, no oral exudates, nose normal. [] Eyes: PERRLA, EOMI, conjunctiva normal, no discharge. [] Neck: Normal range of motion, no tenderness, supple, no stridor. [] Cardiovascular:Heart rate regular rhythm, no murmur [] Lungs & Thorax: Bilateral breath sounds clear to auscultation [] Abdomen: Bowel sounds normal, soft, no tenderness, no masses, no pulsatile masses. [] Skin: Warm, dry, no erythema, no rash. [] Back: No tenderness, no CVA tenderness. [] Extremities: No tenderness, no cyanosis, no clubbing, ROM intact, bilateral lower extremity pitting edema 4+ Neurologic: Alert and oriented X 3, normal motor function, normal sensory function, no focal deficits noted. [] Psychologic: Affect normal, judgement normal, mood normal. [] Current Patient Data: Labs: Laboratory Tests Test 11/05/20 02:25 11/05/20 02:55 White Blood Count 4.7 x10^3/uL (4.0-11.0) Red Blood Count 3.46 x10^6/uL (3.50-5.40) L Hemoglobin 10.6 g/dL (12.0-15.5) L Hematocrit 31.9 % (36.0-47.0) L Mean Corpuscular Volume 92 fL (79-100) Mean Corpuscular Hemoglobin 31 pg (25-35) Mean Corpuscular Hemoglobin Concent 33 g/dL (31-37) Red Cell Distribution Width 14.1 % (11.5-14.5) Platelet Count 211 x10^3/uL (140-400) Neutrophils (%) (Auto) 70 % (31-73) Lymphocytes (%) (Auto) 18 % (24-48) L Monocytes (%) (Auto) 10 % (0-9) H Eosinophils (%) (Auto) 1 % (0-3) Basophils (%) (Auto) 1 % (0-3) Neutrophils # (Auto) 3.3 x10^3/uL (1.8-7.7) Lymphocytes # (Auto) 0.9 x10^3/uL (1.0-4.8) L Monocytes # (Auto) 0.5 x10^3/uL (0.0-1.1) Eosinophils # (Auto) 0.1 x10^3/uL (0.0-0.7) Basophils # (Auto) 0.0 x10^3/uL (0.0-0.2) Sodium Level 142 mmol/L (136-145) Potassium Level 3.5 mmol/L (3.5-5.1) Chloride Level 104 mmol/L (98-107) Carbon Dioxide Level 29 mmol/L (21-32) Anion Gap 9 (6-14) Blood Urea Nitrogen 27 mg/dL (7-20) H Creatinine 1.3 mg/dL (0.6-1.0) H Estimated GFR (Cockcroft-Gault) 47.3 BUN/Creatinine Ratio 21 (6-20) H Glucose Level 116 mg/dL (70-99) H Calcium Level 9.1 mg/dL (8.5-10.1) Magnesium Level 2.0 mg/dL (1.8-2.4) Total Bilirubin 0.3 mg/dL (0.2-1.0) Aspartate Amino Transferase (AST) 27 U/L (15-37) Alanine Aminotransferase (ALT) 16 U/L (14-59) Alkaline Phosphatase 41 U/L (46-116) L Troponin I Quantitative 0.031 ng/mL (0.000-0.055) AF-Exk-N-Type Natriuretic Peptide 1776 pg/mL (0-449) H Total Protein 7.3 g/dL (6.4-8.2) Albumin 3.8 g/dL (3.4-5.0) Albumin/Globulin Ratio 1.1 (1.0-1.7) Lipase 65 U/L (73-393) L Urine Collection Type U cath Urine Color Ysabel Urine Clarity Cloudy Urine pH 5.5 (<5.0-8.0) Urine Specific [place] 1.025 (1.000-1.030) Urine Protein 30 mg/dL (NEG-TRACE) Urine Glucose (UA) Negative mg/dL (NEG) Urine Ketones (Stick) Negative mg/dL (NEG) Urine Blood Negative (NEG) Urine Nitrite Negative (NEG) Urine Bilirubin Small (NEG) Urine Urobilinogen Dipstick 1.0 mg/dL (0.2 mg/dL) Urine Leukocyte Esterase Negative (NEG) Urine RBC 1-2 /HPF (0-2) Urine WBC 1-4 /HPF (0-4) Urine Squamous Epithelial Cells Many /LPF Urine Bacteria Many /HPF (0-FEW) Urine Hyaline Casts Moderate /HPF Urine Mucus Mod /LPF Laboratory Tests 11/05/20 02:25 Laboratory Tests 11/05/20 02:25 Vital Signs: Vital Signs Date Time Temp Pulse Resp B/P (MAP) Pulse Ox O2 Delivery O2 Flow Rate FiO2 11/05/20 04:03 29 96 Room Air 11/05/20 02:10 98.6 62 167/79 (920) 98.6 EKG: EKG: EKG was done at 222, heart rate of 65 beats per minutes, atrial flutter, no ST segment elevation, Radiology/Procedures: Radiology/Procedures: [][facility] [address] [place] [address] IMAGING REPORT Signed PATIENT: KYRIE ROGEL BACCOUNT: [id number] : 1935 LOCATION: ER AGE: 85 SEX: F EXAM STATUS: PRE ER ORD. PHYSICIAN: ALIS NEAL DO REASON: chest pain PROCEDURE: PORTABLE CHEST 1V Single view chest dated 11/05/2020. Comparison made to 12/22/2018. CLINICAL INDICATION: Chest pain. FINDINGS: Single upright portable exam performed. Heart and mediastinal contours are stable. There are some prominent linear markings at the bilateral upper lobes with biapical scarring, unchanged. No new infiltrate or pleural effusion. No pneumothorax. There are a few scattered calcified granuloma. Chronic degenerative and erosive changes at the right shoulder joint, similar to prior study. Impression: 1. No acute radiographic abnormality. 2. Findings consistent with COPD with biapical scarring, unchanged prior study Electronically signed by: Mendoza Underwood MD (11/05/2020 2:59 AM) [facility] [place] and SIGNED BY: MENDOZA UNDERWOOD MD DATE: 11/05/20 [id number] Course & Med Decision Making: Course & Med Decision Making Pertinent Labs and Imaging studies reviewed. (See chart for details) Patient is an 85-year-old female who was evaluated in ER due to chest pain, EKG and cardiac enzymes normal so far. Due to her risk factors, patient will be admitted to hospital for observation. Myke Disclaimer: Myke Disclaimer: This electronic medical record was generated, in whole or in part, using a voice recognition dictation system. Departure Departure Impression: Primary Impression: Chest pain Disposition: ADMITTED INPT THIS HOSP Admitting Physician: DEREK (Dr. Marshall) Condition: STABLE Referrals: WILBER TIERNEY MD (PCP) ALIS NEAL DO Nov 05, 2020 04:40
[2020-11-05] MEDS ORDERED: MORPHINE SULFATE 4 MG/ML VIAL. IV PRN (04:45)
[2020-11-05] MEDS ORDERED: ONDANSETRON PF 4 MG/2 ML VIAL. IV PRN ×2 (04:45→08:15)
[2020-11-05 07:00] VITALS: BP 177/89
--- NOTE | 2020-11-05 08:08 | PDOC1 ---
History and Physical Date of Admission Date of Admission DATE: 11/05/20 TIME: 08:02 Identification/Chief Complaint Chief Complaint Chest pain Source Source: Caregiver, Chart review, Patient History of Present Illness History of Present Illness Ms Landeros is an 85 yo F w/ PMHx hypothyroidism, HTN, breast cancer in remission, hard of hearing who presented to ER by EMS due to chest pain. Per family, patient was sitting in her recliner, she could not get out of recliner because of the chest pain. EMS were called to take her here for evaluation. Patient is a very poor historian, most of history was obtained from her daughter who called here to provide information. There is no report of cough or fever, no recent exposure to anybody who tested positive for COVID-19. She has a daughter and a son still living both living locally her daughter is her caregiver during the day but also has a part-time job and does not live with her 08/06. Her son has made plans to move his mother in her home but she wants to maintain her independence and is opposed to this. Her and 3 of her adult children have within the last 10 years and this causes a significant amount of stress to her. Patient does not complain of chest pain on my examination but does complain of lower back pain and left knee pain and lower extremity edema that is asymmetric with left greater than right. Her PCP ordered venous Doppler outpatient but she has yet to have it done. She has impacted cerumen in both ears and has yet to g et to an ENT she does not wish to go to the visit. She refused to have me clean out earwax bedside. Requests I stop ordering blood work. Chest radiograph with emphysematous changes otherwise no acute findings. EKG sinus rhythm around 65 bpm. Labs significant for WBC 4.7, Hb 10.6, platelets 211, NA 142, K3.5, BUN 27, CR 1.3, glucose 116, BNP 1776, troponin 0 0.031-second troponin 0 0.046. Admitted for further observation Past Medical History Cardiovascular: HTN Pulmonary: No pertinent hx CENTRAL NERVOUS SYSTEM: Periperal neuropathy, Other GI: GERD Heme/Onc: Anemia NOS, Cancer Hepatobiliary: No pertinent hx Psych: Anxiety Musculoskeletal: Osteoarthritis Rheumatologic: No pertinent hx Infectious disease: No pertinent hx Renal/: No pertinent hx Endocrine: Hypothyroidism Past Surgical History Past Surgical History: Hysterectomy, Colon Resection, Other Family History Family History: Diabetes, Hypertension Social History Smoke: No ALCOHOL: none Drugs: None Current Problem List Problem List Problems Medical Problems: (1) Chest pain Status: Acute Current Medications Current Medications Current Medications Morphine Sulfate (Morphine Sulfate) 4 mg 1X ONCE IV Last administered on 11/05/20at 04:03; Start 11/05/20 at 04:30; Stop 11/05/20 at 04:31; Status DC Ondansetron HCl (Zofran) 4 mg PRN Q8HRS PRN IV NAUSEA/VOMITING 1ST CHOICE; Start 11/05/20 at 04:45; Stop 11/06/20 at 04:44 Morphine Sulfate (Morphine Sulfate) 4 mg PRN Q2HR PRN IV SEVERE PAIN 7-10; Start 11/05/20 at 04:45; Stop 11/06/20 at 04:44 Active Scripts Active [place] 5-325 Tablet (Acetaminophen/Hydrocodone Bitart) 1 Each Tablet 1 Tab PO PRN Q6HRS PRN Klor-Con M20 (Potassium Chloride) 20 Meq Tab.er.prt 20 Meq PO DAILYWBKFT 30 Days Furosemide 40 Mg Tablet 40 Mg PO DAILY 30 Days Tramadol Hcl 50 Mg Tablet 50 Mg PO PRN Q6HRS PRN 7 Days Anusol-Hc (Hydrocortisone Acetate) 25 Mg Supp.rect 1 Supp RC BID [place] 5-325 Tablet (Acetaminophen/Hydrocodone Bitart) 1 Each Tablet 1 Tab PO PRN Q6HRS PRN Anusol-Hc (Hydrocortisone Acetate) 25 Mg Supp.rect 1 Supp RC BID Mapap (Acetaminophen) 325 Mg Tablet 650 Mg PO PRN Q6HRS PRN Fluticasone Propionate Nasal [place] (Fluticasone Propionate) 16 Gm [place].susp 1 [place] NS DAILY Linzess (Linaclotide) 145 Mcg Capsule 145 Mcg PO QODAY Lisinopril 10 Mg Tablet 10 Mg PO BID Stool Softener-Laxative Tab (Sennosides/Docusate Sodium) 1 Each Tablet 1 Each PO PRN DAILY Polyethylene Glycol 3350 17 Gm Powd.pack 17 Gm PO DAILY PRN Synthroid (Levothyroxine Sodium) 75 Mcg Tablet 75 Mcg PO DAILY07 Lidocaine Hcl 5 Ml Jel..ml. 1 Valerie TP PRN QID PRN Reported Tamoxifen Citrate 20 Mg Tablet 1 Tab PO DAILY Benicar (Olmesartan Medoxomil) 40 Mg Tablet 40 Mg PO DAILY PRN Bystolic (Nebivolol) 10 Mg Tablet 10 Mg PO DAILY Estrace (Estradiol) 42.5 Gm Cream.appl 1 Gm VG DAILY Hydroxyzine Hcl 10 Mg Tablet 10 Mg PO PRN QID PRN Tamoxifen Citrate 20 Mg Tablet 20 Mg PO DAILY Omeprazole 20 Mg Tablet.dr 1 Tab PO HS Allergies Allergies: Coded Allergies: amoxicillin trihydrate (Verified Allergy, Intermediate, Hives, 01/23/16) metronidazole (Verified Allergy, Intermediate, Nausea and Vomiting, 01/23/16) potassium clavulanate (Verified Allergy, Intermediate, Hives, 01/23/16) ranitidine (Verified Allergy, Intermediate, 07/02/17) ROS General: YES: Fatigue, Malaise; No: Chills, Night Sweats, Appetite, Other PSYCHOLOGICAL ROS: YES: Anxiety; No: Behavioral Disorder, Concentration difficultie, Decreased libido, Depres jessi, Disorientation, Hallucinations, Hostility, Irritablity, Memory difficulties, Mood Swings, Obsessive thoughts, Physical abuse, Sexual abuse, Sleep disturbances, Suicidal ideation, Other Eyes: No Blurry vision, No Decreased vision, No Double vision, No Dry eyes, No Excessive tearing, No Eye Pain, No Itchy Eyes, No Loss of vision, No Photophobia, No Scotomata, No Uses contacts, No Uses glasses, No Other HEENT: YES: Heacaches; No: Visual Changes, Hearing change, Nasal congestion, Nasal discharge, Oral lesions, Sinus pain, Sore Throat, Epistaxis, Sneezing, Snoring, Tinnitus, Vertigo, Vocal changes, Other ALLERGY AND IMMUNOLOGY: No: Hives, Insect Bite Sensitivity, Itchy/Watery Eyes, Nasal Congestion, Post Nasal Drip, Seasonal Allergies, Other Hematological and Lymphatic: No: Bleeding Problems, Blood Clots, Blood Transfusions, Brusing, Night Sweats, Pallor, Swollen Lymph Nodes, Other ENDOCRINE: No: Breast Changes, Galactorrhea, Hair Pattern Changes, Hot Flashes, Malaise/lethargy, Mood Swings, Palpitations, Polydipsia/polyuria, Skin Changes, Temperature Intolerance, Unexpected Weight Changes, Other Breast: No New/Changing Breast Lumps, No Nipple changes, No Nipple discharge, No Other Respiratory: YES: Pleuritic Pain; No: Cough, Hemoptysis, Orthopnea, Shortness of breath, SOB with excertion, Sputum Changes, Stridor, Tachypnea, Wheezing, Other Cardiovascular: yes Chest Pain, yes Edema; No Palpitations, No Orthopnea, No Paroxysmal Noc. Dyspnea, No Lt Headedness, No Other Gastrointestinal: Yes Nausea; No Vomiting, No Abdominal Pain, No Diarrhea, No Constipation, No Melena, No Hematochezia, No Other Genitourinary: No Dysuria, No Frequency, No Incontinence, No Hematuria, No Retention, No Discharge, No Urgency, No Pain, No Flank Pain, No Other, No , No , No , No , No , No , No Musculoskeletal: No Gait Disturbance, No Joint Pain, No Joint Stiffness, No Joint Swelling, No Muscle Pain, No Muscular Weakness, No Pain In:, No Swelling In:, No Other Neurological: No Behavorial Changes, No Bowel/Bladder ControlChng, No Confusion, No Dizziness, No Gait Disturbance, No Headaches, No Impaired Coord/balance, No Memory Loss, No Numbness/Tingling, No Seizures, No Speech Problems, No Tremors, No Visual Changes, No Weakness, No Other Skin: No Dry Skin, No Eczema, No Hair Changes, No Lumps, No Mole Changes, No Mottling, No Nail Changes, No Pruritus, No Rash, No Skin Lesion Changes, No Other, No Acne Physical Exam General: Alert, Oriented X3, Cooperative, mild distress HEENT: Atraumatic, PERRLA, EOMI, Mucous membr. moist/pink, Other (Very hard of hearing, impacted cerumen bilaterally) Lungs: Clear to auscultation, Normal air movement Heart: S1S2, RRR, no thrills, no rubs, no gallops, no murmurs Abdomen: Normal bowel sounds, Soft, No tenderness, No hepatosplenomegaly, No masses Rectal Exam: not examined Extremities: No clubbing, No cyanosis, Normal pulses, No tenderness/swelling Skin: No rashes, No breakdown, No significant lesion Neuro: Normal gait, Normal speech, Strength at 5/5 X4 ext, Normal tone, Sensation intact, Cranial nerves 3-12 NL, Reflexes 2+ Psych/Mental Status: Mental status NL, Mood NL Vitals Vitals Vital Signs Date Time Temp Pulse Resp B/P (MAP) Pulse Ox O2 Delivery O2 Flow Rate FiO2 12/21/20 06:00 62 18 196/95 (128) 94 Room Air 11/05/20 02:10 98.6 98.6 Labs Labs Laboratory Tests Test 11/05/20 02:25 11/05/20 02:55 11/05/20 05:45 White Blood Count 4.7 x10^3/uL (4.0-11.0) Red Blood Count 3.46 x10^6/uL (3.50-5.40) Hemoglobin 10.6 g/dL (12.0-15.5) Hematocrit 31.9 % (36.0-47.0) Mean Corpuscular Volume 92 fL (79-100) Mean Corpuscular Hemoglobin 31 pg (25-35) Mean Corpuscular Hemoglobin Concent 33 g/dL (31-37) Red Cell Distribution Width 14.1 % (11.5-14.5) Platelet Count 211 x10^3/uL (140-400) Neutrophils (%) (Auto) 70 % (31-73) Lymphocytes (%) (Auto) 18 % (24-48) Monocytes (%) (Auto) 10 % (0-9) Eosinophils (%) (Auto) 1 % (0-3) Basophils (%) (Auto) 1 % (0-3) Neutrophils # (Auto) 3.3 x10^3/uL (1.8-7.7) Lymphocytes # (Auto) 0.9 x10^3/uL (1.0-4.8) Monocytes # (Auto) 0.5 x10^3/uL (0.0-1.1) Eosinophils # (Auto) 0.1 x10^3/uL (0.0-0.7) Basophils # (Auto) 0.0 x10^3/uL (0.0-0.2) Sodium Level 142 mmol/L (136-145) Potassium Level 3.5 mmol/L (3.5-5.1) Chloride Level 104 mmol/L (98-107) Carbon Dioxide Level 29 mmol/L (21-32) Anion Gap 9 (6-14) Blood Urea Nitrogen 27 mg/dL (7-20) Creatinine 1.3 mg/dL (0.6-1.0) Estimated GFR (Cockcroft-Gault) 47.3 BUN/Creatinine Ratio 21 (6-20) Glucose Level 116 mg/dL (70-99) Calcium Level 9.1 mg/dL (8.5-10.1) Magnesium Level 2.0 mg/dL (1.8-2.4) Total Bilirubin 0.3 mg/dL (0.2-1.0) Aspartate Amino Transf (AST/SGOT) 27 U/L (15-37) Alanine Aminotransferase (ALT/SGPT) 16 U/L (14-59) Alkaline Phosphatase 41 U/L (46-116) Troponin I Quantitative 0.031 ng/mL (0.000-0.055) 0.046 ng/mL (0.000-0.055) IN-Szy-F-Type Natriuretic Peptide 1776 pg/mL (0-449) Total Protein 7.3 g/dL (6.4-8.2) Albumin 3.8 g/dL (3.4-5.0) Albumin/Globulin Ratio 1.1 (1.0-1.7) Lipase 65 U/L (73-393) Urine Collection Type U cath Urine Color Y[place]abel Urine Clarity Cloudy Urine pH 5.5 (<5.0-8.0) Urine Specific [place] 1.025 (1.000-1.030) Urine Protein 30 mg/dL (NEG-TRACE) Urine Glucose (UA) Negative mg/dL (NEG) Urine Ketones (Stick) Negative mg/dL (NEG) Urine Blood Negative (NEG) Urine Nitrite Negative (NEG) Urine Bilirubin Small (NEG) Urine Urobilinogen Dipstick 1.0 mg/dL (0.2 mg/dL) Urine Leukocyte Esterase Negative (NEG) Urine RBC 1-2 /HPF (0-2) Urine WBC 1-4 /HPF (0-4) Urine Squamous Epithelial Cells Many /LPF Urine Bacteria Many /HPF (0-FEW) Urine Hyaline Casts Moderate /HPF Urine Mucus Mod /LPF Laboratory Tests Test 11/05/20 02:25 11/05/20 02:55 11/05/20 05:45 White Blood Count 4.7 x10^3/uL (4.0-11.0) Red Blood Count 3.46 x10^6/uL (3.50-5.40) Hemoglobin 10.6 g/dL (12.0-15.5) Hematocrit 31.9 % (36.0-47.0) Mean Corpuscular Volume 92 fL (79-100) Mean Corpuscular Hemoglobin 31 pg (25-35) Mean Corpuscular Hemoglobin Concent 33 g/dL (31-37) Red Cell Distribution Width 14.1 % (11.5-14.5) Platelet Count 211 x10^3/uL (140-400) Neutrophils (%) (Auto) 70 % (31-73) Lymphocytes (%) (Auto) 18 % (24-48) Monocytes (%) (Auto) 10 % (0-9) Eosinophils (%) (Auto) 1 % (0-3) Basophils (%) (Auto) 1 % (0-3) Neutrophils # (Auto) 3.3 x10^3/uL (1.8-7.7) Lymphocytes # (Auto) 0.9 x10^3/uL (1.0-4.8) Monocytes # (Auto) 0.5 x10^3/uL (0.0-1.1) Eosinophils # (Auto) 0.1 x10^3/uL (0.0-0.7) Basophils # (Auto) 0.0 x10^3/uL (0.0-0.2) Sodium Level 142 mmol/L (136-145) Potassium Level 3.5 mmol/L (3.5-5.1) Chloride Level 104 mmol/L (98-107) Carbon Dioxide Level 29 mmol/L (21-32) Anion Gap 9 (6-14) Blood Urea Nitrogen 27 mg/dL (7-20) Creatinine 1.3 mg/dL (0.6-1.0) Estimated GFR (Cockcroft-Gault) 47.3 BUN/Creatinine Ratio 21 (6-20) Glucose Level 116 mg/dL (70-99) Calcium Level 9.1 mg/dL (8.5-10.1) Magnesium Level 2.0 mg/dL (1.8-2.4) Total Bilirubin 0.3 mg/dL (0.2-1.0) Aspartate Amino Transf (AST/SGOT) 27 U/L (15-37) Alanine Aminotransferase (ALT/SGPT) 16 U/L (14-59) Alkaline Phosphatase 41 U/L (46-116) Troponin I Quantitative 0.031 ng/mL (0.000-0.055) 0.046 ng/mL (0.000-0.055) BZ-Ltd-Q-Type Natriuretic Peptide 1776 pg/mL (0-449) Total Protein 7.3 g/dL (6.4-8.2) Albumin 3.8 g/dL (3.4-5.0) Albumin/Globulin Ratio 1.1 (1.0-1.7) Lipase 65 U/L (73-393) Urine Collection Type U cath Urine Color [place]abel Urine Clarity Cloudy Urine pH 5.5 (<5.0-8.0) Urine Specific [place] 1.025 (1.000-1.030) Urine Protein 30 mg/dL (NEG-TRACE) Urine Glucose (UA) Negative mg/dL (NEG) Urine Ketones (Stick) Negative mg/dL (NEG) Urine Blood Negative (NEG) Urine Nitrite Negative (NEG) Urine Bilirubin Small (NEG) Urine Urobilinogen Dipstick 1.0 mg/dL (0.2 mg/dL) Urine Leukocyte Esterase Negative (NEG) Urine RBC 1-2 /HPF (0-2) Urine WBC 1-4 /HPF (0-4) Urine Squamous Epithelial Cells Many /LPF Urine Bacteria Many /HPF (0-FEW) Urine Hyaline Casts Moderate /HPF Urine Mucus Mod /LPF Images Images Chest radiograph: Single upright portable exam performed. Heart and mediastinal contours are stable. There are some prominent linear markings at the bilateral upper lobes with biapical scarring, unchanged. No new infiltrate or pleural effusion. No pneumothorax. There are a few scattered calcified granuloma. Chronic degenerative and erosive changes at the right shoulder joint, similar to prior study. Impression: 1. No acute radiographic abnormality. 2. Findings consistent with COPD with biapical scarring, unchanged prior study VTE Prophylaxis Ordered VTE Prophylaxis Devices: No VTE Pharmacological Prophylaxi: Yes Assessment/Plan Assessment/Plan A/P: Chest pain - likely GERD, however, with elevated cardiac enzymes admitted for further care. With elevated Cr cannot undergo CTPA. Will also order venous dopplers of lower extremities Elevated troponin - likely demand ischemia, very minimal elevation Bilateral LE edema - L>R, will obtain venous dopplers to r/o DVT, high risk given sedentary status and breast cancer status Hard of hearing - impacted cerumen bilaterally Anemia - likely of chronic disease. Taking iron Breast cancer s/p mastectomy - likely hormone positive given she is on tamoxifen. Has outpatient f/u Hypothyroidism - cont home levothyroxine HTN - cont meds minus diuretic and ARB NEFTALY - likely vasomotor nephropathy. Hold KEYA/ARB. Fluids FEN- Cardiac diet PPX - heparin FULL CODE Dispo - observation. Justifications for Admission Other Justification IZZY ZEE MD Nov 05, 2020 08:08
[2020-11-05] MEDS ORDERED: ACETAMINOPHEN 325 MG TABLET. PO PRN (08:15)
[2020-11-05] MEDS ORDERED: hydrALAZINE 20 MG/ML VIAL. IVP PRN (08:15)
[2020-11-05] MEDS ORDERED: ALBUTEROL SULFATE 2.5 MG/3 ML NEBU. NEB PRN (08:15)
[2020-11-05] MEDS ORDERED: POLYETHYLENE GLYCOL 3350 17 GM PACKET. PO PRN (08:15)
[2020-11-05] MEDS ORDERED: LEVOTHYROXINE 75 MCG TABLET PO SCH (08:30)
[2020-11-05] MEDS ORDERED: FLUTICASONE 50MCG/NASAL SPRAY 16GM BOTTLE. NS SCH (09:00)
[2020-11-05] MEDS ORDERED: ENOXAPARIN 30 MG/0.3 ML SYRINGE. SQ SCH (09:00)
[2020-11-05] MEDS ORDERED: HYDROcodone/APAP 5/325MG 1 TAB TABLET PO PRN (10:30)
[2020-11-05] MEDS ORDERED: LIDOCAINE (700MG/PATCH) PATCH. TD SCH (10:30)
[2020-11-05] MEDS ORDERED: IV NORMAL SALINE 1000ML BAG 1,000 ML IV ONE (10:30)
--- NOTE | 2020-11-05 13:10 | NUR ---
SS following for discharge planning. SS reviewed pt chart and discussed with pt RN. Pt is from home and is currently on room air. Per Dr. Guzmán, pt had home healthcare at home but fired them. Pt refusing ultrasound. SS will continue to follow for discharge planning.
--- NOTE | 2020-11-05 14:22 | NUR ---
PATIENT REFUSED LAB DRAWS AND TESTS SINCE THIS AM. AGREE WITH ULTRASOUND OF LEFT LEG. VOICES NOT WANTING TO STAY IN HOSPITAL.
--- NOTE | 2020-11-05 14:47 | SNU/HH DC ---
DISCHARGE WITH HOME HEALTH DISCHARGE INFORMATION: Discharge Date: Nov 05, 2020 Final Diagnosis: Problems Medical Problems: (1) Chest pain Status: Acute Condition on Discharge: Stable CODE STATUS: Code Status: Full HOME HEALTH: Face to Face: I certify this patient is under my care and that I, or a nurse practitioner or physician's special education educational assistant working with me, had a face to face encounter that meets the physician face to face encounter requirements with this patient on 11/05/2020. Medical Complications: CHF, HTN Chcf For: Assess/Skilled Observatio, Medication Management RN For Eval/Treatment: Yes Physical Therapy For: Evalulation/Treatment Occupational Therapy For: Evaluation/Treatment Pt Meets Homebound Status: Extreme weakness w/ amb. POST DISCHARGE ORDERS: Activity Instructions for Disc: Activity as tolerated Weight Bearing Status after Di: Full weight bearing Bathing Instructions: Shower-keep dressing dry DIET AFTER DISCHARGE: Cardiac Wound/Incision Care: Do not change dressing CHECKS AFTER DISCHARGE: Checks after discharge: Check blood press - daily, Check your Temp as needed, Weigh Yourself Daily FOLLOW-UP: PCP to follow Home Health: Dr. Wilber Tierney Additional Instructions: Dr. Darrell Dobbs [facility] [address] [address] [phone] TREATMENT/EQUIPMENT ORDERS: Adaptive Equipment Issued: Quinn CERTIFICATION STATEMENT: Certification Statement: Certification Statement: Based on the above finding, I certify that this patient is confined to the home and needs intermittent nursing home care, physical therapy and/or speech therapy, or continues to need occupational therapy.~ This patient is under my care, and I have initiated the establishment of the plan of care.~ This patient will be followed by myself or a community physician who will periodically review the plan of care. Home Meds Active Scripts Potassium Chloride (KLOR-CON M20) 20 Meq Tab.er.prt, 20 MEQ PO DAILYWBKFT for hypokalemia for 30 Days, #30 TAB.SR Prov:SARAH YAN MD 12/27/18 Furosemide (FUROSEMIDE) 40 Mg Tablet, 40 MG PO DAILY for edema for 30 Days, #30 TAB Prov:SARAH YAN MD 12/27/18 Hydrocortisone Acetate (ANUSOL-HC) 25 Mg Supp.rect, 1 SUPP RC BID, #14 SUPP Prov:EVANGELINA MOROCHO MD 10/10/18 Hydrocodone/Apap 5-325 (NORCO 5-325 TABLET) 1 Each Tablet, 1 TAB PO PRN Q6HRS PRN for PAIN, #12 TAB 0 Refills Prov:ANIYAH PARSONS DO 07/02/17 Hydrocortisone Acetate (ANUSOL-HC) 25 Mg Supp.rect, 1 SUPP RC BID, #6 SUPP Prov:ANIYAH PARSONS DO 07/02/17 Acetaminophen (MAPAP) 325 Mg Tablet, 650 MG PO PRN Q6HRS PRN for MILD PAIN / TEMP, #1 TAB 0 Refills Prov:WILBER TIERNEY MD 01/29/16 Fluticasone Propionate (FLUTICASONE PROPIONATE NASAL SPRAY) 16 Gm [place].susp, 1 SPRAY NS DAILY, #1 UNIT 1 Refill Prov:WILBER TIERNEY MD 01/29/16 Linaclotide (LINZESS) 145 Mcg Capsule, 145 MCG PO QODAY, #30 CAP 1 Refill Prov:WILBER TIERNEY MD 01/29/16 Sennosides/Docusate Sodium (STOOL SOFTENER-LAXATIVE TAB) 1 Each Tablet, 1 EACH PO PRN DAILY, #1 TAB-CAP Prov:WILBER TIERNEY MD 01/29/16 Polyethylene Glycol 3350 (POLYETHYLENE GLYCOL 3350) 17 Gm Powd.pack, 17 GM PO DAILY PRN for CONSTIPATION, #1 UNIT Prov:WILBER TIERNEY MD 01/29/16 Levothyroxine Sodium (SYNTHROID) 75 Mcg Tablet, 75 MCG PO DAILY07, #30 TAB Prov:WILBER TIERNEY MD 11/21/15 Lidocaine Hcl (LIDOCAINE HCL) 5 Ml Jel..ml., 1 KAREL TP PRN QID PRN for RECTAL PAIN, #30 GM Prov:WILBER TIERNEY MD 11/21/15 Reported Medications Tamoxifen Citrate (TAMOXIFEN CITRATE) 20 Mg Tablet, 1 TAB PO DAILY for ESTROGEN, #30 TAB 5 Refills 12/23/18 Nebivolol Hcl (BYSTOLIC) 10 Mg Tablet, 10 MG PO DAILY for HTN, TAB 12/23/18 Estradiol (ESTRACE) 42.5 Gm Cream.appl, 1 GM VG DAILY, #1 EACH 3 Refills 01/22/16 Hydroxyzine Hcl (HYDROXYZINE HCL) 10 Mg Tablet, 10 MG PO PRN QID PRN for SEE COMMENTS, TAB 01/22/16 Tamoxifen Citrate (TAMOXIFEN CITRATE) 20 Mg Tablet, 20 MG PO DAILY 08/15/15 Omeprazole (OMEPRAZOLE) 20 Mg Tablet.dr, 1 TAB PO HS for HEARTBURN / GAS, TAB 10/10/14 Discontinued Reported Medications Olmesartan Medoxomil (BENICAR) 40 Mg Tablet, 40 MG PO DAILY PRN for HTN, TAB 12/23/18 Discontinued Scripts Hydrocodone/Apap 5-325 ([place] 5-325 TABLET) 1 Each Tablet, 1 TAB PO PRN Q6HRS PRN for PAIN, #8 TAB 0 Refills Prov:ARSEN VILLA STITCH BONDING MACHINE OPERATOR 06/13/19 Tramadol Hcl (TRAMADOL HCL) 50 Mg Tablet, 50 MG PO PRN Q6HRS PRN for MODERATE PAIN for 7 Days, TAB Prov:SARAH YAN MD 12/27/18 Lisinopril (LISINOPRIL) 10 Mg Tablet, 10 MG PO BID, #60 TAB 1 Refill Prov:WILBER TIERNEY MD 01/29/16 IZZY ZEE MD Nov 05, 2020 14:47
[2020-11-05 15:00] VITALS: BP 151/81
--- NOTE | 2020-11-05 16:14 | NUR ---
SS following up with discharge planning. SS received referral for home healthcare. SS contacted pt's son, Gary, , and discussed. Pt's son agreeable to home healthcare with no preference of company. SS phoned and faxed referral to [facility], ; fax [phone]. SS will continue to follow for discharge planning.
--- NOTE | 2020-11-05 17:11 | PDOC3 ---
Discharge Summary Visit Information Date of Admission: Nov 05, 2020 Date of Discharge: Nov 05, 2020 Admitting Diagnosis: Chest pain Final Diagnosis Problems Medical Problems: (1) Chest pain Status: Acute Brief Hospital Course Allergies Allergies Coded Allergies Type Severity Reaction Last Updated Verified amoxicillin trihydrate Allergy Intermediate Hives 01/23/16 Yes metronidazole Allergy Intermediate Nausea and Vomiting 01/23/16 Yes potassium clavulanate Allergy Intermediate Hives 01/23/16 Yes ranitidine Allergy Intermediate 07/02/17 Yes Vital Signs Vital Signs Date Time Temp Pulse Resp B/P (MAP) Pulse Ox O2 Delivery O2 Flow Rate FiO2 11/05/20 15:00 98.0 62 18 151/81 (104) 97 Room Air 98.0 Lab Results Laboratory Tests Test 11/05/20 02:25 11/05/20 02:55 11/05/20 05:45 White Blood Count 4.7 x10^3/uL (4.0-11.0) Red Blood Count 3.46 x10^6/uL (3.50-5.40) Hemoglobin 10.6 g/dL (12.0-15.5) Hematocrit 31.9 % (36.0-47.0) Mean Corpuscular Volume 92 fL (79-100) Mean Corpuscular Hemoglobin 31 pg (25-35) Mean Corpuscular Hemoglobin Concent 33 g/dL (31-37) Red Cell Distribution Width 14.1 % (11.5-14.5) Platelet Count 211 x10^3/uL (140-400) Neutrophils (%) (Auto) 70 % (31-73) Lymphocytes (%) (Auto) 18 % (24-48) Monocytes (%) (Auto) 10 % (0-9) Eosinophils (%) (Auto) 1 % (0-3) Basophils (%) (Auto) 1 % (0-3) Neutrophils # (Auto) 3.3 x10^3/uL (1.8-7.7) Lymphocytes # (Auto) 0.9 x10^3/uL (1.0-4.8) Monocytes # (Auto) 0.5 x10^3/uL (0.0-1.1) Eosinophils # (Auto) 0.1 x10^3/uL (0.0-0.7) Basophils # (Auto) 0.0 x10^3/uL (0.0-0.2) Sodium Level 142 mmol/L (136-145) Potassium Level 3.5 mmol/L (3.5-5.1) Chloride Level 104 mmol/L (98-107) Carbon Dioxide Level 29 mmol/L (21-32) Anion Gap 9 (6-14) Blood Urea Nitrogen 27 mg/dL (7-20) Creatinine 1.3 mg/dL (0.6-1.0) Estimated GFR (Cockcroft-Gault) 47.3 BUN/Creatinine Ratio 21 (6-20) Glucose Level 116 mg/dL (70-99) Calcium Level 9.1 mg/dL (8.5-10.1) Magnesium Level 2.0 mg/dL (1.8-2.4) Total Bilirubin 0.3 mg/dL (0.2-1.0) Aspartate Amino Transf (AST/SGOT) 27 U/L (15-37) Alanine Aminotransferase (ALT/SGPT) 16 U/L (14-59) Alkaline Phosphatase 41 U/L (46-116) Troponin I Quantitative 0.031 ng/mL (0.000-0.055) 0.046 ng/mL (0.000-0.055) OG-Qgq-Z-Type Natriuretic Peptide 1776 pg/mL (0-449) Total Protein 7.3 g/dL (6.4-8.2) Albumin 3.8 g/dL (3.4-5.0) Albumin/Globulin Ratio 1.1 (1.0-1.7) Lipase 65 U/L (73-393) Urine Collection Type U cath Urine Color Ysabel Urine Clarity Cloudy Urine pH 5.5 (<5.0-8.0) Urine Specific [place] 1.025 (1.000-1.030) Urine Protein 30 mg/dL (NEG-TRACE) Urine Glucose (UA) Negative mg/dL (NEG) Urine Ketones (Stick) Negative mg/dL (NEG) Urine Blood Negative (NEG) Urine Nitrite Negative (NEG) Urine Bilirubin Small (NEG) Urine Urobilinogen Dipstick 1.0 mg/dL (0.2 mg/dL) Urine Leukocyte Esterase Negative (NEG) Urine RBC 1-2 /HPF (0-2) Urine WBC 1-4 /HPF (0-4) Urine Squamous Epithelial Cells Many /LPF Urine Bacteria Many /HPF (0-FEW) Urine Hyaline Casts Moderate /HPF Urine Mucus Mod /LPF Laboratory Tests Test 11/05/20 02:25 11/05/20 02:55 11/05/20 05:45 White Blood Count 4.7 x10^3/uL (4.0-11.0) Red Blood Count 3.46 x10^6/uL (3.50-5.40) Hemoglobin 10.6 g/dL (12.0-15.5) Hematocrit 31.9 % (36.0-47.0) Mean Corpuscular Volume 92 fL (79-100) Mean Corpuscular Hemoglobin 31 pg (25-35) Mean Corpuscular Hemoglobin Concent 33 g/dL (31-37) Red Cell Distribution Width 14.1 % (11.5-14.5) Platelet Count 211 x10^3/uL (140-400) Neutrophils (%) (Auto) 70 % (31-73) Lymphocytes (%) (Auto) 18 % (24-48) Monocytes (%) (Auto) 10 % (0-9) Eosinophils (%) (Auto) 1 % (0-3) Basophils (%) (Auto) 1 % (0-3) Neutrophils # (Auto) 3.3 x10^3/uL (1.8-7.7) Lymphocytes # (Auto) 0.9 x10^3/uL (1.0-4.8) Monocytes # (Auto) 0.5 x10^3/uL (0.0-1.1) Eosinophils # (Auto) 0.1 x10^3/uL (0.0-0.7) Basophils # (Auto) 0.0 x10^3/uL (0.0-0.2) Sodium Level 142 mmol/L (136-145) Potassium Level 3.5 mmol/L (3.5-5.1) Chloride Level 104 mmol/L (98-107) Carbon Dioxide Level 29 mmol/L (21-32) Anion Gap 9 (6-14) Blood Urea Nitrogen 27 mg/dL (7-20) Creatinine 1.3 mg/dL (0.6-1.0) Estimated GFR (Cockcroft-Gault) 47.3 BUN/Creatinine Ratio 21 (6-20) Glucose Level 116 mg/dL (70-99) Calcium Level 9.1 mg/dL (8.5-10.1) Magnesium Level 2.0 mg/dL (1.8-2.4) Total Bilirubin 0.3 mg/dL (0.2-1.0) Aspartate Amino Transf (AST/SGOT) 27 U/L (15-37) Alanine Aminotransferase (ALT/SGPT) 16 U/L (14-59) Alkaline Phosphatase 41 U/L (46-116) Troponin I Quantitative 0.031 ng/mL (0.000-0.055) 0.046 ng/mL (0.000-0.055) PM-Mhl-K-Type Natriuretic Peptide 1776 pg/mL (0-449) Total Protein 7.3 g/dL (6.4-8.2) Albumin 3.8 g/dL (3.4-5.0) Albumin/Globulin Ratio 1.1 (1.0-1.7) Lipase 65 U/L (73-393) Urine Collection Type U cath Urine Color Y[place]abel Urine Clarity Cloudy Urine pH 5.5 (<5.0-8.0) Urine Specific [place] 1.025 (1.000-1.030) Urine Protein 30 mg/dL (NEG-TRACE) Urine Glucose (UA) Negative mg/dL (NEG) Urine Ketones (Stick) Negative mg/dL (NEG) Urine Blood Negative (NEG) Urine Nitrite Negative (NEG) Urine Bilirubin Small (NEG) Urine Urobilinogen Dipstick 1.0 mg/dL (0.2 mg/dL) Urine Leukocyte Esterase Negative (NEG) Urine RBC 1-2 /HPF (0-2) Urine WBC 1-4 /HPF (0-4) Urine Squamous Epithelial Cells Many /LPF Urine Bacteria Many /HPF (0-FEW) Urine Hyaline Casts Moderate /HPF Urine Mucus Mod /LPF Brief Hospital Course Ms Landeros is an 85 yo F w/ PMHx hypothyroidism, HTN, breast cancer in remission, hard of hearing who presented to ER by EMS due to chest pain. Per family, patient was sitting in her recliner, she could not get out of recliner because of the chest pain. EMS were called to take her here for evaluation. Patient is a very poor historian, most of history was obtained from her daughter who called here to provide information. There is no report of cough or fever, no recent exposure to anybody who tested positive for COVID-19. She has a daughter and a son still living both living locally her daughter is her caregiver during the day but also has a part-time job and does not live with her 08/06. Her son has made plans to move his mother in her home but she wants to maintain her independence and is opposed to this. Her and 3 of her adult children have within the last 10 years and this causes a significant amount of stress to her. Patient does not complain of chest pain on my examination but does complain of lower back pain and left knee pain and lower extremity edema that is asymmetric with left greater than right. Her PCP ordered venous Doppler outpatient but she has yet to have it done. She has impacted cerumen in both ears and has yet to get to an ENT she does not wish to go to the visit. She refused to have me clean out earwax bedside. Requests I stop ordering blood work. Chest radiograph with emphysematous changes otherwise no acute findings. EKG sinus rhythm around 65 bpm. Labs significant for WBC 4.7, Hb 10.6, platelets 211, NA 142, K3.5, BUN 27, CR 1.3, glucose 116, BNP 1776, troponin 0 0.031-second troponin 0.046, refused 3rd troponin. No telemetry events noted. Chest pain resolved with PPI. Pain medication for her chronic knee and lower back pain administered. Bilateral LE venous dopplers appeared negative for DVT. Her son and daughter have presented conflicting plans of care and of note came to visit separately. They are both concerned about memory issues, given neurology and psychology referral for outpatient MOCA and MMSE testing. Patient wish is to be home and not have further inpatient care. As her pain resolved with PPI and has been oriented and able to make her own decisions, discharged home with home health. Problem list: Chest pain - likely GERD, however, with minimally cardiac enzymes admitted for further care. With elevated Cr cannot undergo CTPA. venous dopplers of lower extremities with no DVT apparent Elevated troponin - likely demand ischemia, very minimal elevation Bilateral LE edema - L>R, obtained venous dopplers to r/o DVT, high risk given sedentary status and breast cancer status Hard of hearing - impacted cerumen bilaterally Anemia - likely of chronic disease. Taking iron Breast cancer s/p mastectomy - likely hormone positive given she is on tamoxifen. Has outpatient f/u Hypothyroidism - cont home levothyroxine HTN - cont meds minus diuretic and ARB NEFTALY - likely vasomotor nephropathy. Hold KEYA/ARB. Fluids given Discharge Information Condition at Discharge: Improved Follow Up: Weeks (1) Disposition/Orders: D/C to Home w/ HH Scheduled Estradiol (Estrace) 42.5 Gm Cream.appl, 1 GM VG DAILY, #1 Ref 3 (Reported) Entered as Reported by: ROLY DOUGHERTY on 01/22/16 0712 Last Action: Continued on 11/05/20807 by IZZY ZEE MD Fluticasone Propionate (Fluticasone Propionate Nasal [place]) 16 Gm [place].susp, 1 SPRAY NS DAILY, #1 Ref 1 Prescribed by: WILBER TIERNEY on 01/29/16 08 Last Action: Continued on 11/05/20807 by IZZY ZEE MD Furosemide (Furosemide) 40 Mg Tablet, 40 MG PO DAILY for edema for 30 Days, #30 Prescribed by: SARAH YAN MD on 12/27/18 1410 Hydrocortisone Acetate (Anusol-Hc) 25 Mg Supp.rect, 1 SUPP RC BID, #6 Prescribed by: ANIYAH PARSONS on 07/02/17 0835 Hydrocortisone Acetate (Anusol-Hc) 25 Mg Supp.rect, 1 SUPP RC BID, #14 Prescribed by: EVANGELINA MOROCHO MD on 10/10/18 0508 Levothyroxine Sodium (Synthroid) 75 Mcg Tablet, 75 MCG PO DAILY07, #30 Prescribed by: WILBER TIERNEY on 11/21/15 1323 Last Action: Continued on 11/05/20807 by IZZY ZEE MD Linaclotide (Linzess) 145 Mcg Capsule, 145 MCG PO QODAY, #30 Ref 1 Prescribed by: WILBER TIERNEY on 01/29/16 0828 Nebivolol Hcl (Bystolic) 10 Mg Tablet, 10 MG PO DAILY for HTN, (Reported) Entered as Reported by: SANDI ELMORE on 12/23/18 0051 Omeprazole (Omeprazole) 20 Mg Tablet.dr, 1 TAB PO HS for HEARTBURN / GAS, (Reported) Entered as Reported by: YANIQUE FERNANDEZ on 10/10/14 0949 Last Action: Converted on 11/05/20807 by IZZY ZEE MD Potassium Chloride (Klor-Con M20) 20 Meq Tab.er.prt, 20 MEQ PO DAILYWBKFT for hypokalemia for 30 Days, #30 Prescribed by: SARAH YAN MD on 12/27/18 1410 Sennosides/Docusate Sodium (Stool Softener-Laxative Tab) 1 Each Tablet, 1 EACH PO PRN DAILY, #1 Prescribed by: WILBER TIERNEY on 01/29/16 0828 Tamoxifen Citrate (Tamoxifen Citrate) 20 Mg Tablet, 20 MG PO DAILY, (Reported) Entered as Reported by: ANIYAH ANDERSON on 08/15/15 0957 Tamoxifen Citrate (Tamoxifen Citrate) 20 Mg Tablet, 1 TAB PO DAILY for ESTROGEN, #30 Ref 5 (Reported) Entered as Reported by: SANDI ELMORE on 12/23/18 0051 Scheduled PRN Acetaminophen (Mapap) 325 Mg Tablet, 650 MG PO PRN Q6HRS PRN for MILD PAIN / TEMP, #1 Ref 0 Prescribed by: WILBER TIERNEY on 01/29/16827 Last Action: Continued on 11/05/20 08 by IZZY ZEE MD Hydrocodone/Apap 5-325 (Sandy 5-325 Tablet) 1 Each Tablet, 1 TAB PO PRN Q6HRS PRN for PAIN, #12 Ref 0 Prescribed by: ANIYAH PARSONS on 07/02/17 0835 Last Action: Continued on 11/05/20 1026 by IZZY ZEE MD Hydroxyzine Hcl (Hydroxyzine Hcl) 10 Mg Tablet, 10 MG PO PRN QID PRN for SEE COMMENTS, (Reported) Entered as Reported by: ROLY DOUGHERTY on 01/22/16 0708 Lidocaine Hcl (Lidocaine Hcl) 5 Ml Jel..ml., 1 KAREL TP PRN QID PRN for RECTAL PAIN, #30 Prescribed by: WILBER TIERNEY on 11/21/15 1323 Polyethylene Glycol 3350 (Polyethylene Glycol 3350) 17 Gm Powd.pack, 17 GM PO DAILY PRN for CONSTIPATION, #1 Prescribed by: WILBER TIERNEY on 01/29/16827 Last Action: Continued on 11/05/20807 by IZZY ZEE MD Discontinued Medications Hydrocodone/Apap 5-325 (Sandy 5-325 Tablet) 1 Each Tablet, 1 TAB PO PRN Q6HRS PRN for PAIN, #8 Ref 0 Prescribed by: ARSEN VILLA APRN on 06/13/19 0001 Lisinopril (Lisinopril) 10 Mg Tablet, 10 MG PO BID, #60 Ref 1 Prescribed by: WILBER TIERNEY on 01/29/16 0828 Olmesartan Medoxomil (Benicar) 40 Mg Tablet, 40 MG PO DAILY PRN for HTN, (Reported) Entered as Reported by: SANDI ELMORE on 12/23/18 0051 Tramadol Hcl (Tramadol Hcl) 50 Mg Tablet, 50 MG PO PRN Q6HRS PRN for MODERATE PAIN for 7 Days Prescribed by: SARAH YAN MD on 12/27/18 1410 Justicifation of Admission Dx: Justifications for Admission: Justification of Admission Dx: Yes IZZY ZEE MD Nov 05, 2020 17:11
--- NOTE | 2020-11-05 18:19 | RAD ---
Exam: DVT ultrasound lower extremity Doppler, bilateral CLINICAL HISTORY: Bilateral leg swelling COMPARISON: None available. TECHNIQUE: Ultrasound evaluation of the bilateral was performed from the groin to the upper calf with gomez scale , spectral and color doppler evaluation. FINDINGS: The bilateral common femoral, superficial femoral, and popliteal veins are patent with normal olivia sibility, color and spectral Doppler flow, augmentation and phasicity. There is suboptimal visualizat ion of calf veins. IMPRESSION: No evidence of deep venous thrombosis in the lower extremities. Calf veins were suboptimally visualiz ed. Electronically signed by: Trupti Bran MD (11/05/2020 6:16 PM) [id number]
--- NOTE | 2020-11-05 18:37 | NUR ---
DISCHARGED PATIENT HOME WITH HOME HEALTH. DISCHARGE INSTRUCTIONS GIVEN. PIV AND HEART MONITOR REMOVED. ESCORTED PATIENT OFF UNIT PER WHEELCHAIR INTO A PRIVATE VEHICLE.
[2020-11-05] MEDS ORDERED: PATCH REMOVAL. MC SCH (21:00)
[2020-11-05] MEDS ORDERED: PANTOPRAZOLE 40 MG TABLET.DR. PO SCH (21:00)
[2020-11-05] MEDS ORDERED: ESTRADIOL 0.01% VAGINAL CREAM 42.5GM TUBE. VG SCH (21:00)
== END 2020-11-05 18:41 | disposition home health service (06) ==
LOC: ER 02:10 → 5 NORTH 06:17 → 2 NORTH 06:52
PROVIDERS: ADMIT Internal Medicine; ATTEND Internal Medicine
DX: R07.89 Other chest pain (principal); K21.9 Gastro-esophageal reflux disease without esophagitis; N17.0 Acute kidney failure with tubular necrosis; J44.9 Chronic obstructive pulmonary disease, unspecified; I24.8 Other forms of acute ischemic heart disease; I10 Essential (primary) hypertension; H61.23 Impacted cerumen, bilateral; E03.9 Hypothyroidism, unspecified; M19.90 Unspecified osteoarthritis, unspecified site; F41.9 Anxiety disorder, unspecified; K59.00 Constipation, unspecified; R74.8 Abnormal levels of other serum enzymes; N17.9 Acute kidney failure, unspecified; R60.9 Edema, unspecified; D64.9 Anemia, unspecified; Z79.810 Long term (current) use of selective estrogen receptor modulators (SERMs); Z85.3 Personal history of malignant neoplasm of breast; Z90.12 Acquired absence of left breast and nipple; Z90.711 Acquired absence of uterus with remaining cervical stump; Z90.710 Acquired absence of both cervix and uterus; Z90.49 Acquired absence of other specified parts of digestive tract; Z79.899 Other long term (current) drug therapy
CPT/HCPCS: 36415; 71045; 80053; 81001; 83690; 83735; 83880; 84484; 85025; 87086; 93005; 93970; 96361; 96372; 96374; 99285; G0378; J1650; J2270; J7030; G0379

== ENCOUNTER 2020-11-24 02:50 | Emergency (ER) | payer MEDICARE, OTHER ==
[~2020-11-24] VITALS: Ht 152.4 cm; Wt 48.0 kg
[~2020-11-24 02:50] MED LIST changes: -CLIN150C14 PO; +CLIN150C15 PO; +LISI10TA16 PO; -LISI10TA2 PO; -POLY17PO28 PO; +POLY17PO52 PO
[2020-11-24] MEDS ORDERED: oxyCODONE/APAP 5/325 1 TAB TABLET PO ONE (04:30)
--- NOTE | 2020-11-24 04:55 | ED.ADGEN ---
Past Medical History Past Medical History: Arthritis, Cancer, Constipation, Hypertension, Other Additional Past Medical Histor: IRREGULAR HEARTBEAT, PROLAPSED BLADDER, ULCERS, THYROID DZ Past Surgical History: Other Additional Past Surgical Histo: PARTIAL HYSTERECTOMY,RECENT BLADDER SLING SURGERY,L BREAST MASTECTOMY Smoking Status: Never Smoker Alcohol Use: None Drug Use: None General Adult EDM: Chief Complaint: LOWER EXTREMITY SWELLING HPI: HPI: Patient is an 85-year-old female who is unsure why she was brought to the emergency room. She believes that maybe it is due to the swelling in her legs. She states that she has had this for quite some time and takes Lasix for this. She does not feel like it is any worse than usual. She has no complaints other than she would like to eat. Upon calling the daughter, she states that they had her brought to the emergency room because she would not listen to them this morning. She has no medical complaints. She states she does feel they are able to take care of the patient at home. Review of Systems: Review of Systems: Complete ROS is negative unless otherwise documented in HPI Current Medications: Current Medications Medications (Trade) Dose Ordered Sig/Taj Start Time Stop Time Status Last Admin Dose Admin Oxycodone/ Acetaminophen (Percocet 5/325) 1 tab 1X ONCE 11/24/20 04:30 11/24/20 04:31 DC 11/24/20 04:46 1 TAB Allergies: Allergies: Allergies Coded Allergies Type Severity Reaction Last Updated Verified amoxicillin trihydrate Allergy Intermediate Hives 01/23/16 Yes metronidazole Allergy Intermediate Nausea and Vomiting 01/23/16 Yes potassium clavulanate Allergy Intermediate Hives 01/23/16 Yes ranitidine Allergy Intermediate 07/02/17 Yes Physical Exam: PE: General: Awake, alert, NAD. Well Nourished, well hydrated. Cooperative HEENT: Atraumatic, EOMI, PERRL, airway patent, moist oral mucosa Neck: Supple, trachea midline Respiratory: CTA bilaterally, normal effort, no wheezing/crackles CV: RRR, no murmur, cap refill <2, 4+ pitting edema bilateral lower extremities GI: Soft, nondistended, nontender, no masses MSK: No obvious deformities Skin: Warm, dry, intact Neuro: A&O x3, speech NL, sensory and motor grossly intact, no focal deficits Psych: Normal affect, normal mood, not suicidal or homicidal Current Patient Data: Vital Signs: Vital Signs Date Time Temp Pulse Resp B/P (MAP) Pulse Ox O2 Delivery O2 Flow Rate FiO2 11/24/20 05:15 64 22 154/78 (103) 98 Room Air 11/24/20 02:53 98.6 98.6 EKG: EKG: [] Heart Score: Risk Factors: Risk Factors: DM, Current or recent (<one month) smoker, HTN, HLP, family history of CAD, obesity. Risk Scores: Score 0 - 3: 2.5% MACE over next 6 weeks - Discharge Home Score 4 - 6: 20.3% MACE over next 6 weeks - Admit for Clinical Observation Score 7 - 10: 72.7% MACE over next 6 weeks - Early Invasive Strategies Radiology/Procedures: Radiology/Procedures: [] Course & Med Decision Making: Course & Med Decision Making Pertinent Labs and Imaging studies reviewed. (See chart for details) Patient is an 85-year-old female who presents to the emergency room via EMS reportedly for not listening to her daughter. Patient is medically stable. She does not want lab draw. She was seen here last week for leg swelling and had a negative work-up at that time. Compression stockings were placed. Patient was given food here in the emergency room. Patient's test results and vitals while in the ED were fully reviewed and discussed with the patient. Patient is stable and at this time does not need admission to the hospital. We have discussed strict return precautions and the importance of following up with their Primary Care Physician. Patient stated understanding and was given an opportunity to ask any questions. Patient is in agreement with plan. Myke Disclaimer: Myke Disclaimer: This electronic medical record was generated, in whole or in part, using a voice recognition dictation system. Departure Departure Impression: Primary Impression: Edema Disposition: 01 DC HOME SELF CARE/HOMELESS Condition: STABLE Referrals: WILBER TIERNEY MD (PCP) Patient Instructions: Edema CORNELL MARTINEZ MD Nov 24, 2020 04:55
[2020-11-24 05:15] VITALS: BP 154/78
[2020-12-26] MEDS ORDERED: BYSTOLIC20 MG PO (09:57)
[2020-12-26] MEDS ORDERED: HYDR-2765 PO (09:57)
[2020-12-26] MEDS ORDERED: OLME40TA16 PO (09:57)
[2020-12-31] MEDS ORDERED: LACT1CAP19 PO (14:21)
[2020-12-31] MEDS ORDERED: HYDR-2765 PO (14:21)
[2020-12-31] MEDS ORDERED: LINE600T12 PO (14:21)
[2020-12-31] MEDS ORDERED: NYST100054 SWSW (14:21)
[2020-12-31] MEDS ORDERED: CEFD300C PO (14:21)
== END 2020-11-24 05:30 | disposition home or self-care (01) ==
LOC: ER 02:50
DX: R60.0 Localized edema (principal); I10 Essential (primary) hypertension; Z90.710 Acquired absence of both cervix and uterus; Z88.1 Allergy status to other antibiotic agents; Z88.8 Allergy status to other drugs, medicaments and biological substances; Z88.3 Allergy status to other anti-infective agents
CPT/HCPCS: 99285-25

== ENCOUNTER 2020-12-17 13:14 | Emergency (ER) | payer MEDICARE, OTHER ==
[~2020-12-17] VITALS: Ht 152.4 cm; Wt 54.0 kg
[2020-12-17] MEDS ORDERED: DIPH,PERTUSS(ACELL),TET VAC/PF 0.5 ML SYRINGE. VAX IM ONE (13:30)
--- NOTE | 2020-12-17 14:09 | RAD ---
Bilateral lower extremity venous Doppler ultrasound History: Reason: swellling / Comparison: Bilateral lower extremity venous Doppler ultrasound, 122, 2019. Procedure: Color flow Doppler, Doppler spectral analysis, and 2D images are obtained with and without compression in the area of the common femoral vein, superficial femoral vein - femoral vein junction , main femoral vein (superficial femoral vein) and popliteal vein. Veins of the proximal calf are als o imaged. Findings: There is normal color flow, augmentation, and compressibility of all visualized vein segments. No raghavendra dence of deep venous thrombus is present. There is suboptimal visualization of calf veins. IMPRESSION: No evidence of right or left lower extremity deep venous thrombosis. Electronically signed by: Daniel Hallman MD (12/17/2020 2:06 PM) [id number]
--- NOTE | 2020-12-17 15:09 | PHYS DOC ---
Past Medical History Past Medical History: Arthritis, Cancer, Constipation, Hypertension, Other Additional Past Medical Histor: IRREGULAR HEARTBEAT, PROLAPSED BLADDER, ULCERS, THYROID DZ Past Surgical History: Other Additional Past Surgical Histo: PARTIAL HYSTERECTOMY,RECENT BLADDER SLING SURGERY,L BREAST MASTECTOMY Smoking Status: Never Smoker Alcohol Use: None Drug Use: None General Adult EDM: Chief Complaint: LOWER EXT PAIN HPI: HPI: 85-year-old female past medical history of dementia and lymphedema, presents to the ED BIBEMS after family called 911, c/o bilateral leg swelling with bleeding wound to patient's posterior left leg, no witnessed trauma. Pt reports her legs have been swollen "forever," and states they cause her pain. Does not know when she started bleeding. Takes no AC. Cannot tell me if she follows with wound care. Has no chest pain, dypsnea or fever. EMR was reviewed and patient has medical history of hypothyroidism, HTN, breast cancer in remission, and difficulties hearing-cp admit 10/2020. 11/24/2020 ed visit-accurate hx unobtainable from pt. Review of Systems: Review of Systems: Constitutional: Denies fever or chills. [] Eyes: Denies change in visual acuity. [] HENT: Denies nasal congestion or sore throat. [] Respiratory: Denies cough or shortness of breath. [] Cardiovascular: Denies chest pain or edema. [] GI: Denies abdominal pain, nausea, vomiting, bloody stools or diarrhea. [] : Denies dysuria. [] Musculoskeletal: Denies back pain or new joint pain. [] Integument: Denies rash. [] Neurologic: Denies headache, focal weakness or sensory changes. [] Endocrine: Denies polyuria or polydipsia. [] Lymphatic: Denies swollen glands. [] Psychiatric: Denies depression or anxiety. [] Heart Score: Risk Factors: Risk Factors: DM, Current or recent (<one month) smoker, HTN, HLP, family history of CAD, obesity. Risk Scores: Score 0 - 3: 2.5% MACE over next 6 weeks - Discharge Home Score 4 - 6: 20.3% MACE over next 6 weeks - Admit for Clinical Observation Score 7 - 10: 72.7% MACE over next 6 weeks - Early Invasive Strategies Current Medications: Current Medications Medications (Trade) Dose Ordered Sig/Taj Start Time Stop Time Status Last Admin Dose Admin Diphtheria/ Tetanus/Acell Pertussis (ADACEL TDap SYRINGE) 0.5 ml ONCE ONCE 12/17/20 13:30 12/17/20 13:31 DC 12/17/20 14:48 0.5 ML Allergies: Allergies: Allergies Coded Allergies Type Severity Reaction Last Updated Verified amoxicillin trihydrate Allergy Intermediate Hives 01/23/16 Yes metronidazole Allergy Intermediate Nausea and Vomiting 01/23/16 Yes potassium clavulanate Allergy Intermediate Hives 01/23/16 Yes ranitidine Allergy Intermediate 07/02/17 Yes Physical Exam: PE: Constitutional: Well developed, well nourished, no acute distress, non-toxic appearance. HENT: Normocephalic, atraumatic, Eyes: EOMI, conjunctiva normal, no discharge. Neck: Normal range of motion, supple, Cardiovascular: S1/2 present, regular rhythm Lungs & Thorax: Speaking in full sentences, bilateral equal chest rise, no tachypnea or increased work of breathing Abdomen: soft, no tenderness, Skin: Warm, dry, no erythema, no rash or increased warmth Back: No tenderness, no CVA tenderness. [] Extremities: No tenderness, no cyanosis, bl lympedema/elephatiasis with large 8x6cm ruptured blister with no active bleeding, some new brb in center of skin of the blister, Neurologic: Alert-not oriented to prior events, normal motor function, normal sensory function, no focal deficits noted. [] Psychologic: Affect normal, judgement normal, mood normal-happy/smiling, asks me to come back and chat Current Patient Data: Vital Signs: Vital Signs Date Time Temp Pulse Resp B/P (MAP) Pulse Ox O2 Delivery O2 Flow Rate FiO2 12/17/20 13:17 98.0 77 18 176/82 (113) 99 Room Air 98.0 EKG: EKG: [] Radiology/Procedures: Radiology/Procedures: [] Course & Med Decision Making: Course & Med Decision Making Pertinent Labs and Imaging studies reviewed. (See chart for details) EMR reviewed after US ordered, no dvt bl. Sxs are chronic. Has a ruptured large blister w/given scant bleeding. No deformity - I doubt pt is ambulatory given weight in legs. Pt appears to have dementia. Will discharge home with strict ED return precautions were given for neurologic deficits, fever or rash. Encouraged urgent outpatient follow-up with PMD and wound care in 48 to 72 hours for wound check. Life-threatening processes were considered but are low suspicion at this time, given history, physical exam and ED workup. Pt was educated on all prescription medications and adverse effects. All patient's questions were answered and pt was stable at time of discharge. Life/limb-threatening differential includes but is not limited to, life- threatening rash, infection, sepsis or DVT I spoken with the patient and her caregivers. I explained the patient's condition, diagnoses and treatment plan based on the information available to me at this time. I have answered the patient and her caregiver's questions and addressed any concerns. The patient and her caregivers have a good und erstanding of patient's diagnosis, condition and treatment plan as can be expected at this point. Vital signs have been stable. Patient's condition is stable and appropriate for discharge from the emergency department. Patient will pursue further outpatient evaluation with primary care physician or other designated or consulting physician as outlined in the discharge instructions. The patient and/or caregivers are agreeable to this plan of care and follow-up instructions have been explained in detail. The patient and/or caregivers have received these instructions in written form and have expressed an understanding of the discharge instructions. The patient and/or caregivers are aware that any significant change of condition or worsening of symptoms sh ould prompt immediate return to this or the closest emergency department or call to 911. Myke Disclaimer: Myke Disclaimer: This electronic medical record was generated, in whole or in part, using a voice recognition dictation system. Departure Departure Impression: Primary Impression: Lymphedema of both lower extremities Additional Impression: Blister of left leg without infection Disposition: 01 DC HOME SELF CARE/HOMELESS Condition: STABLE Referrals: WILBER TIERNEY MD (PCP) within 1 week Patient Instructions: Blisters, Lymphedema, VIS, Tetanus, Diphtheria, and Pertussis (Tdap) - CDC Additional Instructions: FOLLOW UP WITH WOUND CARE: wound check in 2-3 days [facility] Address: [address] [place] [address], [address] [place] [address] EMERGENCY DEPARTMENT GENERAL DISCHARGE INSTRUCTIONS Thank you for coming to [facility] Emergency Department (ED) today and trusting us with you care. We trust that you had a positive experience in our Emergency Department. If you wish to speak to the department management, you may call the Director at [phone]. YOUR FOLLOW UP INSTRUCTIONS ARE FOLLOWS: 1. Do you have a private Doctor? If you do not have a private doctor, please ask for a resource list of physicians or clinics that may be able to assist you with follow up care. 2. The Emergency Physicain has interpreted your x-rays. The X-Ray specialist will also review them. If there is a change in the findings, you will be notified in 48 hours when at all possible. 3. A lab test or culture has been done, your results will be reviewed and you will be notified if you need a change in treatment. ADDITIONAL INSTRUCTIONS AND INFORMATION: 1. Your care today has been supervised by a physician who is specially trained in emergency care. Many problems require more than one evaluation for a complete diagnosis and treatment. We recommend that you schedule your follow up appointment as recommended to ensure complete treatment of you illness or injury. If you are unable to obtain follow up care and continue to have a problem, or if your condition worsens, we recommend that you return to the ED. 2. We are not able to safely determine your condition over the phone nor are we able to give sound medical advice over the phone. For these safety reasons, if you call for medical advice we will ask you to come to the ED for further evaluation. 3. If you have any questions regarding these discharge instructions please call the ED at [phone]. SAFETY INFORMATION: In the interest of safety, wellness, and injury prevention; we encourage you to wear your sealbelt, if you smoke; quite smoking, and we encourage family to use a protective helmet for bicycling and other sporting events that present an increased risk for head injury. IF YOUR SYMPTOMS WORSEN OR NEW SYMPTOMS DEVELOP, OR YOU HAVE CONCERNS ABOUT YOUR CONDITION; OR IF YOUR CONDITION WORSENS WHILE YOU ARE WAITING FOR YOUR FOLLOW UP APPOINTMENT; EITHER CONTACT YOUR PRIMARY CARE DOCTOR, THE PHYSICIAN WHOSE NAME AND NUMBER YOU WERE GIVEN, OR RETURN TO THE ED IMMEDIATELY. NATALIA SIMON DO Dec 17, 2020 15:09
[2020-12-17] MEDS ORDERED: NEOMY/BACITR/POLYMYXIN OINT PACKET. TP ONE (15:15)
[2020-12-17 16:10] VITALS: BP 139/70
[2020-12-26] MEDS ORDERED: BYSTOLIC20 MG PO (09:57)
[2020-12-26] MEDS ORDERED: HYDR-2765 PO (09:57)
[2020-12-26] MEDS ORDERED: OLME40TA16 PO (09:57)
[2020-12-31] MEDS ORDERED: CEFD300C PO (14:21)
[2020-12-31] MEDS ORDERED: NYST100054 SWSW (14:21)
[2020-12-31] MEDS ORDERED: LACT1CAP19 PO (14:21)
[2020-12-31] MEDS ORDERED: HYDR-2765 PO (14:21)
[2020-12-31] MEDS ORDERED: LINE600T12 PO (14:21)
== END 2020-12-17 16:18 | disposition home or self-care (01) ==
LOC: ER 13:14
DX: S80.822A Blister (nonthermal), left lower leg, initial encounter (principal); I89.0 Lymphedema, not elsewhere classified; M19.90 Unspecified osteoarthritis, unspecified site; I10 Essential (primary) hypertension; K59.00 Constipation, unspecified; F03.90 Unspecified dementia, unspecified severity, without behavioral disturbance, psychotic disturbance, mood disturbance, and anxiety; Z90.710 Acquired absence of both cervix and uterus; Z90.89 Acquired absence of other organs; Z98.890 Other specified postprocedural states; Z85.9 Personal history of malignant neoplasm, unspecified; X58.XXXA Exposure to other specified factors, initial encounter; Y93.89 Activity, other specified; Y92.89 Other specified places as the place of occurrence of the external cause; Y99.8 Other external cause status
CPT/HCPCS: 90471; 90715; 93970; 99285

== ENCOUNTER 2021-04-19 17:00 | Inpatient (IN) | payer MEDICARE, OTHER ==
[~2021-04-19] VITALS: Ht 152.4 cm; Wt 43.7 kg
[~2021-04-19 17:00] MED LIST changes: +BYSTOLIC20 MG PO; +CEFD300C PO; +LACT1CAP19 PO; +LINE600T12 PO; +NYST100054 SWSW; +OLME40TA16 PO
--- NOTE | 2021-04-19 17:47 | PHYS DOC ---
Past Medical History Past Medical History: Arthritis, Cancer, Constipation, Dementia, Hypertension, Other Additional Past Medical Histor: IRREGULAR HEARTBEAT, PROLAPSED BLADDER, ULCERS, THYROID DZ (RADHA COBIAN MD) Past Surgical History: Other Additional Past Surgical Histo: PARTIAL HYSTERECTOMY,RECENT BLADDER SLING SURGERY,L BREAST MASTECTOMY (RADHA COBIAN MD) Smoking Status: Never Smoker Alcohol Use: None Drug Use: None (RADHA COBIAN MD) General Adult EDM: Chief Complaint: MULTIPLE COMPLAINTS HPI: HPI: This is an 86-year-old female who was brought in by EMS after home health care came to evaluate the patient was concerned for the patient's wellbeing. The patient has chronic dementia and home health care is concerned because the patient cannot take care of herself at home and they are worried. The patient is chronically demented and does not have any acute complaints at this time. She complains of generalized pain. She did fall last week which she was seen by EMS at that time who helped her up. She does not believe she hit her head but is unsure. She denies any other traumatic injuries from that event but is a poor historian. Onset today. Location generalized. Duration constant. (RADHA COBIAN MD) Heart Score: C/O Chest Pain: No Risk Factors: Risk Factors: DM, Current or recent (<one month) smoker, HTN, HLP, family history of CAD, obesity. Risk Scores: Score 0 - 3: 2.5% MACE over next 6 weeks - Discharge Home Score 4 - 6: 20.3% MACE over next 6 weeks - Admit for Clinical Observation Score 7 - 10: 72.7% MACE over next 6 weeks - Early Invasive Strategies (RADHA COBIAN MD) C/O Chest Pain: No (LA PAYNE APRN) Allergies: Allergies: Allergies Coded Allergies Type Severity Reaction Last Updated Verified amoxicillin trihydrate Allergy Intermediate Hives 01/23/16 Yes metronidazole Allergy Intermediate Nausea and Vomiting 01/23/16 Yes potassium clavulanate Allergy Intermediate Hives 01/23/16 Yes ranitidine Allergy Intermediate 07/02/17 Yes (RADHA COBIAN MD) Physical Exam: PE: Constitutional: Well developed, well nourished, no acute distress, non-toxic appearance. [] HENT: Normocephalic, atraumatic, bilateral external ears normal, oropharynx moist, no oral exudates, nose normal. [] No lacerations abrasions or ecchymosis to the head or neck. Eyes: PERRLA, EOMI, conjunctiva normal, no discharge. [] Neck: Normal range of motion, no tenderness, supple, no stridor. [] Cardiovascular:Heart rate regular rhythm, no murmur [] Lungs & Thorax: Bilateral breath sounds clear to auscultation [] Abdomen: Bowel sounds normal, soft, no tenderness, no masses, no pulsatile masses. [] Skin: Warm, dry, no erythema, no rash. [] No traumatic injuries identified of the arms or legs. No pain with passive range of motion of the hips. Back: No tenderness, no CVA tenderness. [] Extremities: No tenderness, no cyanosis, no clubbing, ROM intact, no edema. [] Neurologic: Mental status: Awake and alert Cranial nerves: Extraocular movements intact, eyebrows april bilaterally, smile symmetric, uvula elevation nl, shoulder shrug intact bilaterally, tongue protrusion normal Clear speech. Sensation: equal and normal in all extremities Strength: 5/5 in upper and lower extremities bilaterally Psychologic: Affect normal, judgement normal, mood normal. [] (RADHA COBIAN MD) Current Patient Data: Vital Signs: Vital Signs Date Time Temp Pulse Resp B/P (MAP) Pulse Ox O2 Delivery O2 Flow Rate FiO2 04/19/21 17:29 156/82 (106) (RADHA COBIAN MD) EKG: EKG: [] (RADHA COBIAN MD) EK-sinus bradycardia with PACs, rate 53, T abnormality in anterolateral leads, no STEMI, read by Dr. Cobian (LA PAYNE APRN) Radiology/Procedures: Radiology/Procedures: [] (RADHA COBIAN MD) Radiology/Procedures: PROCEDURE: CT HEAD WO CONTRAST CT HEAD INDICATION: Reason: failure to thrive / Spl. Instructions: / History: COMPARISON: None Available. Exposure: One or more of the following individualized dose reduction techniques were utilized for this examination: 1. Automated exposure control 2. Adjustment of the mA and/or kV according to patient size 3. Use of iterative reconstruction technique TECHNIQUE: 5 mm contiguous axial images were obtained from the skull base to the vertex in both bone and soft tissue algorithm. FINDINGS: Mild bilateral periventricular white matter hypodensities likely chronic small vessel ischemic disease. No evidence of acute intracranial hemorrhage. No extra-axial fluid collections. No mass effect or midline shift. Ventricular size is appropriate. Basal cisterns are patent. No fractures identified.Mercado-white differentiation is preserved.Globes and orbits are within normal limits. Paranasal sinuses and mastoid air cells are clear. IMPRESSION: 1. No acute intracranial findings. 2. Mild bilateral periventricular white matter hypodensities likely chronic small vessel ischemic disease. Electronically signed by: Peña Olea MD (04/19/2021 6:50 PM) [id number] PROCEDURE: PELVIS XR PELVIS 1-2V DATE: 04/19/2021 6:04 PM INDICATION: fell a week ago wont walk / Spl. Instructions: / History: COMPARISON: None. FINDINGS: There is no evidence of acute fracture or dislocation. Mild degenerative changes of the hips, SI joints, and symphysis pubis. Incompletely characterized advanced lumbar spondylosis. IMPRESSION: No evidence of acute fracture. PROCEDURE: CHEST AP ONLY XR CHEST 1V INDICATION: Reason: failure to thrive / Spl. Instructions: / History: . COMPARISON STUDY: 11/05/2020. FINDINGS: Lungs: Normal lung volume. No consolidation. Unchanged biapical subpleural fibrosis. Pleura: No pleural effusion or pneumothorax. Heart and Mediastinum: The cardiomediastinal silhouette is normal. Tortuous atherosclerotic aorta. Small hiatal hernia Bones: Advanced degenerative changes right shoulder with extensive osseous remodeling. Superior subluxation of the left humeral head relative to the glenoid consistent with chronic rotator cuff tear. IMPRESSION: No consolidation. Unchanged biapical subpleural fibrosis. Electronically signed by: Fred Valentino MD (04/19/2021 7:36 PM) [facility] (LA PAYNE APRN) Course & Med Decision Making: Course & Med Decision Making Pertinent Labs and Imaging studies reviewed. (See chart for details) [] (RADHA COBIAN MD) Course & Med Decision Making 1756- Report from Dr. Cobian will follow up on patient labs and imaging results and admit patient to the hospitalist. [id number] with Dr. Silverman who is the admitting physician, and care was assumed following discussion of patient. Will admit patient for failure to thrive, anemia, and generalized weakness Patient's vital signs stable. Patient remains afebrile, appears nontoxic, respirations even and unlabored. Patient will be admitted to the medical/surgical floor. Patient's case and plan of care also discussed with Dr. Cha (LA PAYNE APRN) Myke Disclaimer: Myke Disclaimer: This electronic medical record was generated, in whole or in part, using a voice recognition dictation system. (RADHA COBIAN MD) Departure Departure Impression: Primary Impression: FTT (failure to thrive) in adult Additional Impressions: Anemia Qualified Codes: D64.9 - Anemia, unspecified Generalized weakness Referrals: WILBER TIERNEY MD (PCP) Attending Signature Attending Signature I have reviewed the PA/BOILER OR ENGINE OPERATOR's note and plan of care. I was available for consultation as needed during the patient's visit in the emergency department. I agree with the clinical impression, plan, and disposition. (BRAVO CHA DO) RADHA COBIAN MD Apr 19, 2021 17:47 LA PAYNE APRN Apr 19, 2021 17:57 BRAVO CHA DO Apr 20, 2021 04:16
[2021-04-19 18:01] LABS: BASO # 0.1 x10^3/uL (0.0-0.2); BASO % 1 % (0-3); EOS # 0.1 x10^3/uL (0.0-0.7); EOS % 3 % (0-3); HEMATOCRIT 30.3 % (36.0-47.0); HEMOGLOBIN 10.1 g/dL (12.0-15.5); LYMPH # 1.3 x10^3/uL (1.0-4.8); LYMPH % 30 % (24-48); MEAN CORPUSCULAR HEMOGLOBIN 31 pg (25-35); MEAN CORPUSCULAR HGB CONC 33 g/dL (31-37); MEAN CORPUSCULAR VOLUME 92 fL (79-100); MONO # 0.6 x10^3/uL (0.0-1.1); MONO % 13 % (0-9); NEUT # 2.3 x10^3/uL (1.8-7.7); NEUT % 53 % (31-73); PLATELET COUNT 239 x10^3/uL (140-400); RED BLOOD COUNT 3.27 x10^6/uL (3.50-5.40); RED CELL DISTRIBUTION WIDTH 13.2 % (11.5-14.5); WHITE BLOOD COUNT 4.5 x10^3/uL (4.0-11.0)
[2021-04-19 18:15] LABS: CALCIUM 9.2 mg/dL (8.5-10.1); CREATININE 0.6 mg/dL (0.6-1.0); GFR 115.2; POTASSIUM 3.8 mmol/L (3.5-5.1)
[2021-04-19 18:18] LABS: ALBUMIN 3.5 g/dL (3.4-5.0); ALBUMIN/GLOBULIN RATIO 1.1 (1.0-1.7); TOTAL BILIRUBIN 0.2 mg/dL (0.2-1.0); TOTAL PROTEIN 6.7 g/dL (6.4-8.2)
--- NOTE | 2021-04-19 18:53 | RAD ---
CT HEAD INDICATION: Reason: failure to thrive / Spl. Instructions: / History: COMPARISON: None Available. Exposure: One or more of the following individualized dose reduction techniques were utilized for thi s examination: 1. Automated exposure control 2. Adjustment of the mA and/or kV according to patient size 3. Use of iterative reconstruction technique TECHNIQUE: 5 mm contiguous axial images were obtained from the skull base to the vertex in both bone and soft tissue algorithm. FINDINGS: Mild bilateral periventricular white matter hypodensities likely chronic small vessel ischemic diseas e. No evidence of acute intracranial hemorrhage. No extra-axial fluid collections. No mass effect or midline shift. Ventricular size is appropriate. Basal cisterns are patent. No fractures identified.Mercado-white differentiation is preserved.Globes and orbits are within normal l imits. Paranasal sinuses and mastoid air cells are clear. IMPRESSION: 1. No acute intracranial findings. 2. Mild bilateral periventricular white matter hypodensities likely chronic small vessel ischemic di sease. Electronically signed by: Peña Olea MD (04/19/2021 6:50 PM) [id number]
--- NOTE | 2021-04-19 19:36 | RAD ---
XR PELVIS 1-2V DATE: 04/19/2021 6:04 PM INDICATION: fell a week ago wont walk / Spl. Instructions: / History: COMPARISON: None. FINDINGS: There is no evidence of acute fracture or dislocation. Mild degenerative changes of the hips, SI joints, and symphysis pubis. Incompletely characterized adv anced lumbar spondylosis. IMPRESSION: No evidence of acute fracture. Electronically signed by: Fred Valentino MD (04/19/2021 7:34 PM) [id number]
--- NOTE | 2021-04-19 19:38 | RAD ---
XR CHEST 1V INDICATION: Reason: failure to thrive / Spl. Instructions: / History: . COMPARISON STUDY: 11/05/2020. FINDINGS: Lungs: Normal lung volume. No consolidation. Unchanged biapical subpleural fibrosis. Pleura: No pleural effusion or pneumothorax. Heart and Mediastinum: The cardiomediastinal silhouette is normal. Tortuous atherosclerotic aorta. Sm all hiatal hernia Bones: Advanced degenerative changes right shoulder with extensive osseous remodeling. Superior sublu xation of the left humeral head relative to the glenoid consistent with chronic rotator cuff tear. IMPRESSION: No consolidation. Unchanged biapical subpleural fibrosis. Electronically signed by: Fred Valentino MD (04/19/2021 7:36 PM) [facility]
[2021-04-19] MEDS ORDERED: HYDROcodone/APAP 5/325MG 1 TAB TABLET PO ONE (20:15)
--- NOTE | 2021-04-19 21:23 | HP ---
ADMIT DATE: 04/19/2021 CHIEF COMPLAINT: Failure to thrive. HISTORY OF PRESENT ILLNESS: The patient is a pleasant 86-year-old female who has multiple comorbidities and some mild dementia. Basically, she has been trying to take care for herself at home. She has a home health nurse that told her today that she just was not be able to take care of her at home anymore because she is too weak. Basically, the patient is being admitted for a long-term care placement. I discussed the case with ER physician. She does have some anemia. We are going to track her labs, give her some physical therapy and occupational therapy, and consult social worker delinquency prevention. PAST MEDICAL HISTORY: Prolapsed bladder, ulcers, thyroid disease, breast cancer, mastectomy, arthritis, constipation, dementia, hypertension, partial hysterectomy. ALLERGIES: AMOXICILLIN, METRONIDAZOLE, AUGMENTIN, RANITIDINE. FAMILY HISTORY: Diabetes. SOCIAL HISTORY: She does not drink, smoke or take drugs. She is retired. MEDICATIONS: Reviewed. Please refer to the MRAD. REVIEW OF SYSTEMS: GENERAL: She complains of weakness. SKIN: No bruising, hair changes or rashes. EYES: No blurred, double or loss of vision. NOSE AND THROAT: No history of nosebleeds, hoarseness or sore throat. HEART: No history of palpitations, chest pain or shortness of breath on exertion. LUNGS: Denies cough, hemoptysis, wheezing or shortness of breath. GASTROINTESTINAL: Denies changes in appetite, nausea, vomiting, diarrhea or constipation. GENITOURINARY: No history of frequency, urgency, hesitancy or nocturia. NEUROLOGIC: She complains of weakness. PSYCHIATRIC: She complains of depression. ENDOCRINE: No history of heat or cold intolerance, polyuria or polydipsia. EXTREMITIES: Denies muscle weakness, joint pain, pain on walking or stiffness. . PHYSICAL EXAMINATION: VITALS: Within normal limits and are stable. GENERAL: She is depressed and weak. HEENT: Normal cephalic atraumatic, external auditory canals are patent. EYES: Extraocular muscles are intact, pupils are equally round and reactive to light and accommodation. MUSCULOSKELETAL: Well developed, well nourished, good range of motion. ENDOCRINE: No thyromegaly was palpated. LYMPHATICS: No cervical chain or axillary nodes were noted. HEMATOPOIETIC: No bruising. NECK: Supple, no JVD, no thyromegaly was noted. LUNGS: Clear to auscultation in all lung denny without rhonchi or wheezing. HEART: RRR, S1, S2 present. Peripheral pulses intact, no obvious murmurs were noted. ABDOMEN: Soft, nontender. Positive bowel sounds no organomegaly, normal bowel sounds. EXTREMITIES: Without any cyanosis, clubbing, or edema. Pedal pulses intact, Homans sign is negative. NEUROLOGIC: She is depressed and weak. PSYCHIATRIC: She is depressed and weak. SKIN: No ulcerations or rashes, good skin turgor, no jaundice. VASCULAR: Good capillary refill, neurovascular bundle appears to be intact. LABORATORY DATA: White count is 4, hemoglobin 10, platelets 239. Electrolytes are normal. Chest x-ray shows no acute disease. She does have some biapical subpleural fibrosis. CT of the head showed no acute changes, but she does have white matter hypodensities from small vessel disease. ASSESSMENT AND PLAN: Failure to thrive. The patient has been admitted. We will start PT, OT, home meds. DVT prophylaxis. Full code. IV fluids. Consult social worker delinquency prevention. Fall precautions. Await our urinalysis. KENYA/MADISON DR: KENYA/edenilson TID: [id number]
[2021-04-20 02:26] VITALS: BP 137/67
--- NOTE | 2021-04-20 04:35 | EKG ---
[facility] [address] [place] [address] Test Date: 2021-04-19 Test Time: 17:49:53 Pat Name: KYRIE ROGEL Department: Room: 6 Gender: F Track Hoe Operator: : 1935 Requested By: LA PAYNE Order Number: [id number] Reading MD: Measurements Intervals [place] Rate: 53 P: 38 MI: 178 QRS: 27 QRSD: 76 T: 138 QT: 426 QTc: 402 Interpretive Statements SINUS RHYTHM ATRIAL PREMATURE COMPLEX(ES) T ABNORMALITY IN ANTEROLATERAL LEADS ABNORMAL ECG RI6.02 No previous ECG available for comparison
[2021-04-20 07:00] VITALS: BP 121/65
[2021-04-20 10:45] VITALS: BP 133/70
--- NOTE | 2021-04-20 11:37 | PDOC ---
[employer] PROGRESS NOTE Date of Service DOS: DATE: 04/20/21 TIME: 11:35 Chief Complaint Chief Complaint Failure to thrive at home alone Prolapsed bladder, ulcers, thyroid disease, breast cancer, mastectomy, arthritis, constipation, dementia, hypertension, partial hysterectomy. History of Present Illness History of Present Illness 04/20/2021 Patient seen and examined She is quite agitated this morning will not let us examine her too much Federico is out of her room Discussed with RN Chart reviewed Vitals/I&O Vitals/I&O: Vital Signs Date Time Temp Pulse Resp B/P (MAP) Pulse Ox O2 Delivery O2 Flow Rate FiO2 04/20/21 10:45 98.2 60 18 133/70 (91) 97 Room Air 98.2 I & O 04/19/21 04/19/21 04/20/21 15:00 23:00 07:00 Intake Total 0 ml Balance 0 ml Physical Exam General: Other (Pleasantly confused and agitated) Heart: Regular rate Lungs: Clear Abdomen: Normal bowel sounds Extremities: Other (Both lower extremities have dry skin and are thin and frail with somewounds) Skin: Other (Both lower extremities are dry frail and have wounds) Labs Labs: Laboratory Tests Test 04/19/21 17:05 White Blood Count 4.5 x10^3/uL (4.0-11.0) Red Blood Count 3.27 x10^6/uL (3.50-5.40) Hemoglobin 10.1 g/dL (12.0-15.5) Hematocrit 30.3 % (36.0-47.0) Mean Corpuscular Volume 92 fL (79-100) Mean Corpuscular Hemoglobin 31 pg (25-35) Mean Corpuscular Hemoglobin Concent 33 g/dL (31-37) Red Cell Distribution Width 13.2 % (11.5-14.5) Platelet Count 239 x10^3/uL (140-400) Neutrophils (%) (Auto) 53 % (31-73) Lymphocytes (%) (Auto) 30 % (24-48) Monocytes (%) (Auto) 13 % (0-9) Eosinophils (%) (Auto) 3 % (0-3) Basophils (%) (Auto) 1 % (0-3) Neutrophils # (Auto) 2.3 x10^3/uL (1.8-7.7) Lymphocytes # (Auto) 1.3 x10^3/uL (1.0-4.8) Monocytes # (Auto) 0.6 x10^3/uL (0.0-1.1) Eosinophils # (Auto) 0.1 x10^3/uL (0.0-0.7) Basophils # (Auto) 0.1 x10^3/uL (0.0-0.2) Sodium Level 142 mmol/L (136-145) Potassium Level 3.8 mmol/L (3.5-5.1) Chloride Level 107 mmol/L (98-107) Carbon Dioxide Level 29 mmol/L (21-32) Anion Gap 6 (6-14) Blood Urea Nitrogen 19 mg/dL (7-20) Creatinine 0.6 mg/dL (0.6-1.0) Estimated GFR (Cockcroft-Gault) 115.2 BUN/Creatinine Ratio 32 (6-20) Glucose Level 92 mg/dL (70-99) Calcium Level 9.2 mg/dL (8.5-10.1) Magnesium Level 2.0 mg/dL (1.8-2.4) Total Bilirubin 0.2 mg/dL (0.2-1.0) Aspartate Amino Transf (AST/SGOT) 20 U/L (15-37) Alanine Aminotransferase (ALT/SGPT) 14 U/L (14-59) Alkaline Phosphatase 50 U/L (46-116) Troponin I Quantitative < 0.017 ng/mL (0.000-0.055) Total Protein 6.7 g/dL (6.4-8.2) Albumin 3.5 g/dL (3.4-5.0) Albumin/Globulin Ratio 1.1 (1.0-1.7) Assessment and Plan Assessmemt and Plan Problems Medical Problems: (1) Anemia Status: Acute (2) FTT (failure to thrive) in adult Status: Acute (3) Generalized weakness Status: Acute Failure to thrive at home by herself prolapsed bladder, ulcers, thyroid disease, breast cancer, mastectomy, arthritis, constipation, dementia, hypertension, partial hysterectomy. Plan We are awaiting prison transfer and/or long-term care placement For now continue current treatment Home meds DVT prophylaxis Full code Encourage p.o. intake Long-term prognosis guarded Appreciate subspecialist input Comment Review of Relevant I have reviewed the following items juan a (where applicable) has been applied. Medications: Current Medications Medications (Trade) Dose Ordered Sig/Taj Route PRN Reason Start Time Stop Time Status Last Admin Dose Admin Acetaminophen/ Hydrocodone Bitart (Lortab 5/325) 1 tab 1X ONCE PO 04/19/21 20:15 04/19/21 20:16 DC 04/19/21 20:08 Justifications for Admission Other Justification Lower extremity pain HANNAH FAYE III DO Apr 20, 2021 11:37
[2021-04-20 14:47] VITALS: BP 142/71
[2021-04-20 19:38] VITALS: BP 114/67
[2021-04-20] MEDS ORDERED: SENNOSIDES/DOCUSATE 8.6/50MG TABLET. PO PRN (20:30)
[2021-04-20] MEDS ORDERED: POLYETHYLENE GLYCOL 3350 17 GM PACKET. PO PRN (20:30)
[2021-04-20] MEDS: LACTOBACILLUS RHAMNOSUS GG 1 CAPSULE. PO SCH (21:00)
[2021-04-20] MEDS: PANTOPRAZOLE 40 MG TABLET.DR. PO SCH ×2 (21:00→22:39)
[2021-04-20] MEDS: HYDROcodone/APAP 7.5/325MG 1 TAB TABLET PO PRN (22:39)
--- NOTE | 2021-04-20 22:53 | NUR ---
RN and tech Pat in room to scoot pt up in bed - while moving pt, RN found a medication in bed. Pill sent to pharmacy for identification - was olmesartan - med not currently ordered for pt. Will check purse for any medications that may be in there
[2021-04-20 23:37] VITALS: BP 118/67
[2021-04-21 03:22] VITALS: BP 107/61
[2021-04-21] MEDS: LEVOTHYROXINE 75 MCG TABLET PO SCH (05:55)
[2021-04-21 07:00] VITALS: BP 112/58
[2021-04-21] MEDS: LACTOBACILLUS RHAMNOSUS GG 1 CAPSULE. PO SCH ×2 (09:17→22:44)
[2021-04-21] MEDS: TAMOXIFEN 10 MG TABLET PO SCH (09:23)
[2021-04-21] MEDS: HYDROcodone/APAP 7.5/325MG 1 TAB TABLET PO PRN ×2 (09:28→16:08)
--- NOTE | 2021-04-21 13:20 | PDOC ---
[employer] PROGRESS NOTE Date of Service DOS: DATE: 04/21/21 TIME: 13:19 Chief Complaint Chief Complaint Failure to thrive at home alone Prolapsed bladder, ulcers, thyroid disease, breast cancer, mastectomy, arthritis, constipation, dementia, hypertension, partial hysterectomy. History of Present Illness History of Present Illness 04/21/2021 Patient seen and examined Discussed with RN Chart reviewed She is pleasantly confused 04/20/2021 Patient seen and examined She is quite agitated this morning will not let us examine her too much Federico is out of her room Discussed with RN Chart reviewed Vitals/I&O Vitals/I&O: Vital Signs Date Time Temp Pulse Resp B/P (MAP) Pulse Ox O2 Delivery O2 Flow Rate FiO2 04/21/21 07:00 98.7 57 20 112/58 (76) 98 Room Air 98.7 I & O 04/20/21 04/20/21 04/21/21 15:00 23:00 07:00 Intake Total 0 ml 240 ml 0 ml Output Total 100 ml 100 ml Balance 0 ml 140 ml -100 ml Physical Exam General: Other (Pleasantly confused and agitated) Heart: Regular rate Lungs: Clear Abdomen: Normal bowel sounds Extremities: Other (Both lower extremities have dry skin and are thin and frail with somewounds) Skin: Other (Both lower extremities are dry frail and have wounds) Assessment and Plan Assessmemt and Plan Problems Medical Problems: (1) Anemia Status: Acute (2) FTT (failure to thrive) in adult Status: Acute (3) Generalized weakness Status: Acute Failure to thrive at home by herself prolapsed bladder, ulcers, thyroid disease, breast cancer, mastectomy, arthritis, constipation, dementia, hypertension, partial hysterectomy. Plan We are awaiting retirement transfer and/or long-term care placement For now continue current treatment Wound [facility] meds DVT prophylaxis Full code Encourage p.o. intake Long-term prognosis guarded Appreciate subspecialist input Comment Review of Relevant I have reviewed the following items juan a (where applicable) has been applied. Medications: Current Medications Medications (Trade) Dose Ordered Sig/Taj Route PRN Reason Start Time Stop Time Status Last Admin Dose Admin Acetaminophen/ Hydrocodone Bitart (Lortab 7.5/325) 1 tab PRN Q6HRS PRN PO MODERATE TO SEVERE PAIN 04/20/21 20:30 04/21/21 09:28 Lactobacillus Rhamnosus (Culturelle) 1 cap BID PO 04/20/21 21:00 04/21/21 09:17 Levothyroxine Sodium (Synthroid) 75 mcg DAILY06 PO 04/21/21 06:00 04/21/21 05:55 Pantoprazole Sodium (Protonix) 40 mg HS PO 04/20/21 21:00 04/20/21 22:39 Tamoxifen Citrate (Nolvadex) 10 mg DAILY PO 04/21/21 09:00 04/21/21 09:23 Justifications for Admission Other Justification Lower extremity pain HANNAH FAYE III DO Apr 21, 2021 13:20
[2021-04-21 15:00] VITALS: BP 115/64
[2021-04-21 17:17] LABS: BILIRUBIN,URINE SMALL (NEG); CLARITY,URINE CLEAR; COLOR,URINE YELLOW; NITRITE,URINE NEGATIVE (NEG); PH,URINE 5.5 (<5.0-8.0); PROTEIN,URINE 30 mg/dL (NEG-TRACE); UROBILINOGEN,URINE 0.2 mg/dL (0.2 mg/dL)
[2021-04-21 17:22] LABS: AMORPHOUS SEDIMENT,UR PRESENT /HPF; BACTERIA,URINE FEW /HPF (0-FEW); RBC,URINE OCC /HPF (0-2); WBC,URINE OCC /HPF (0-4)
[2021-04-21 19:00] VITALS: BP 110/53
[2021-04-21 23:04] VITALS: BP 117/75
[2021-04-22] MEDS: HYDROcodone/APAP 7.5/325MG 1 TAB TABLET PO PRN ×3 (02:51→22:38)
[2021-04-22 03:13] VITALS: BP 148/75
[2021-04-22] MEDS: LEVOTHYROXINE 75 MCG TABLET PO SCH (06:22)
[2021-04-22 07:30] VITALS: BP 121/59
[2021-04-22] MEDS: LACTOBACILLUS RHAMNOSUS GG 1 CAPSULE. PO SCH ×2 (08:07→22:37)
[2021-04-22] MEDS: TAMOXIFEN 10 MG TABLET PO SCH (08:08)
[2021-04-22 11:00] VITALS: BP 111/73
--- NOTE | 2021-04-22 11:28 | PDOC ---
[employer] PROGRESS NOTE Date of Service DOS: DATE: 04/22/21 TIME: 11:27 Chief Complaint Chief Complaint Failure to thrive at home alone Prolapsed bladder, ulcers, thyroid disease, breast cancer, mastectomy, arthritis, constipation, dementia, hypertension, partial hysterectomy. History of Present Illness History of Present Illness 04/22/2021 Patient seen and examined Discussed with RN Chart reviewed Discussed with case management She remains pleasantly confused we are awaiting discharge to skilled in a day or 2 04/21/2021 Patient seen and examined Discussed with RN Chart reviewed She is pleasantly confused 04/20/2021 Patient seen and examined She is quite agitated this morning will not let us examine her too much Federico is out of her room Discussed with RN Chart reviewed Vitals/I&O Vitals/I&O: Vital Signs Date Time Temp Pulse Resp B/P (MAP) Pulse Ox O2 Delivery O2 Flow Rate FiO2 04/22/21 08:00 Room Air 04/22/21 07:30 98.2 63 16 121/59 (79) 96 98.2 I & O 04/21/21 04/21/21 04/22/21 15:00 23:00 07:00 Intake Total 240 ml Output Total 200 ml Balance 240 ml -200 ml Physical Exam General: Other (Pleasantly confused and agitated) Heart: Regular rate Lungs: Clear Abdomen: Normal bowel sounds Extremities: Other (Both lower extremities have dry skin and are thin and frail with somewounds) Skin: Other (Both lower extremities are dry frail and have wounds) Labs Labs: Laboratory Tests Test 04/21/21 16:50 Urine Collection Type Unknown Urine Color Yellow Urine Clarity Clear Urine pH 5.5 (<5.0-8.0) Urine Specific [place] >=1.030 (1.000-1.030) Urine Protein 30 mg/dL (NEG-TRACE) Urine Glucose (UA) Negative mg/dL (NEG) Urine Ketones (Stick) Trace mg/dL (NEG) Urine Blood Negative (NEG) Urine Nitrite Negative (NEG) Urine Bilirubin Small (NEG) Urine Urobilinogen Dipstick 0.2 mg/dL (0.2 mg/dL) Urine Leukocyte Esterase Negative (NEG) Urine RBC Occ /HPF (0-2) Urine WBC Occ /HPF (0-4) Urine Squamous Epithelial Cells Many /LPF Urine Amorphous Sediment Present /HPF Urine Bacteria Few /HPF (0-FEW) Urine Mucus Mod /LPF Assessment and Plan Assessmemt and Plan Problems Medical Problems: (1) Anemia Status: Acute (2) FTT (failure to thrive) in adult Status: Acute (3) Generalized weakness Status: Acute Failure to thrive at home by herself prolapsed bladder, ulcers, thyroid disease, breast cancer, mastectomy, arthritis, constipation, dementia, hypertension, partial hysterectomy. Plan We are awaiting group home transfer and/or long-term care placement in a day or 2 For now continue current treatment Wound group home meds DVT prophylaxis Full code Encourage p.o. intake Long-term prognosis guarded Appreciate subspecialist input Comment Review of Relevant I have reviewed the following items juan a (where applicable) has been applied. Justifications for Admission Other Justification Lower extremity pain HANNAH FAYE III DO Apr 22, 2021 11:28
--- NOTE | 2021-04-22 14:10 | NUR ---
JAMARI following. Discussed with RN, pt from home alone, room air, cardiac diet. Therapy recommending SNF, per RN pt would like to go to [facility]. JAMARI attempted to meet with pt, however pt was sleeping and would not wake. JAMARI requested [facility] take a look at the referral. [facility] stated pt needs to work with therapy today. JAMARI will continue to follow. Addendum: 04/22/21 at 1606 by ARNOLD KAUFFMAN JAMARI met with pt, pt agreeable to [facility]. Awaiting acceptance decision. Choice of vendor form completed. RN notified.
[2021-04-22 15:46] VITALS: BP 119/75
[2021-04-22 19:50] VITALS: BP 108/58
[2021-04-22] MEDS: PANTOPRAZOLE 40 MG TABLET.DR. PO SCH (22:38)
[2021-04-22 23:25] VITALS: BP 118/16
[2021-04-23 03:07] VITALS: BP 113/57
[2021-04-23] MEDS: LEVOTHYROXINE 75 MCG TABLET PO SCH (06:44)
[2021-04-23] MEDS: HYDROcodone/APAP 7.5/325MG 1 TAB TABLET PO PRN (06:44)
[2021-04-23 07:46] VITALS: BP 130/70
[2021-04-23] MEDS: TAMOXIFEN 10 MG TABLET PO SCH (09:04)
[2021-04-23] MEDS: LACTOBACILLUS RHAMNOSUS GG 1 CAPSULE. PO SCH (09:04)
[2021-04-23] MEDS ORDERED: HYDR-2765 PO (11:31)
--- NOTE | 2021-04-23 11:33 | SNU/HH DC ---
DISCHARGE ORDERS DISCHARGE INFORMATION: DISCHARGE DATE: Apr 23, 2021 FINAL DIAGNOSIS Failure to thrive at home alone weakness and debility poor nutrition Prolapsed bladder, ulcers, thyroid disease, breast cancer, s/p mastectomy, severe osteo arthritis, constipation, dementia, hypertension, Problems Medical Problems: (1) Anemia Status: Acute (2) FTT (failure to thrive) in adult Status: Acute (3) Generalized weakness Status: Acute CONDITION ON DISCHARGE: Stable CODE STATUS: Code Status: Full RETIREMENT: SNF STAY <30 DAYS: Yes POST DISCHARGE ORDERS: ACTIVITY ORDERS: Activity as tolerated WEIGHT BEARING STATUS: As tolerated BATHING ORDERS: Shower-keep dressing dry DIET AFTER DISCHARGE: Cardiac WOUND/INCISION CARE: Do not change dressing CHECKS AFTER DISCHARGE: CHECKS AFTER DISCHARGE: Check blood press - daily, Check your Temp as needed, Weigh Yourself Daily FOLLOW-UP: PHYSICIAN FOLLOW-UP: Primary care 2 weeks ADDITIONAL FOLLOW-UP: will be seen at skilled TREATMENT/EQUIPMENT ORDERS: ADAPTIVE EQUIPMENT NEEDED: Front wheeled walker, Sliding board, Wheelchair Physical Therapy For: Evalulation/Treatment Occupational Therapy For: Evaluation/Treatment DISCHARGE MEDICATIONS: Home Meds Active Scripts Hydrocodone Bit/Acetaminophen (HYDROCODONE-APAP 7.5-325 ) 1 Tab Tablet, 1 TAB PO PRN Q6HRS PRN for PAIN, #30 TAB 0 Refills Prov:FAISAL BROWN MD 04/23/21 Lactobacillus Rhamnosus Gg (CULTURELLE) 1 Each Cap.sprink, 1 CAP PO BID for Diarrhea for 14 Days, #28 CAP Prov:IZZY ZEE MD 12/31/20 Acetaminophen (MAPAP) 325 Mg Tablet, 650 MG PO PRN Q6HRS PRN for MILD PAIN / TEMP, #1 TAB 0 Refills Prov:WILBER TIERNEY MD 01/29/16 Sennosides/Docusate Sodium (STOOL SOFTENER-LAXATIVE TAB) 1 Each Tablet, 1 EACH PO PRN DAILY, #1 TAB-CAP Prov:WLIBER TIERNEY MD 01/29/16 Polyethylene Glycol 3350 (POLYETHYLENE GLYCOL 3350) 17 Gm Powd.pack, 17 GM PO DAILY PRN for CONSTIPATION, #1 UNIT Prov:WILBER TIERNEY MD 01/29/16 Levothyroxine Sodium (SYNTHROID) 75 Mcg Tablet, 75 MCG PO DAILY07, #30 TAB Prov:WILBER TIERNEY MD 11/21/15 Reported Medications Olmesartan Medoxomil (Olmesartan Medoxomil) 40 Mg Tablet, 40 MG PO DAILY for htn, TAB 12/26/20 Tamoxifen Citrate (TAMOXIFEN CITRATE) 20 Mg Tablet, 1 TAB PO DAILY for ESTROGEN, #30 TAB 5 Refills 12/23/18 Nebivolol Hcl (BYSTOLIC) 10 Mg Tablet, 10 MG PO DAILY for HTN, TAB 12/23/18 Omeprazole (OMEPRAZOLE) 20 Mg Tablet.dr, 1 TAB PO HS for HEARTBURN / GAS, TAB 10/10/14 Discontinued Scripts Nystatin (NYSTATIN) 100,000 Unit/1 Ml Oral.susp, 5 ML SWSW [id number] for Thrush for 5 Days, MISC Prov:IZZY ZEE MD 12/31/20 Linezolid (ZYVOX) 600 Mg Tablet, 600 MG PO BID for Cellulitis for 7 Days, #14 TAB Prov:IZZY ZEE MD 12/31/20 Cefdinir (CEFDINIR) 300 Mg Capsule, 300 MG PO BID for Cellulitis for 7 Days, #14 CAP Prov:IZZY ZEE MD 12/31/20 FAISAL BROWN MD Apr 23, 2021 11:33
--- NOTE | 2021-04-23 11:35 | PDOC3 ---
Discharge Summary Visit Information Date of Admission: Apr 20, 2021 Date of Discharge: Apr 23, 2021 Final Diagnosis Failure to thrive at home alone weakness and debility poor nutrition Prolapsed bladder, ulcers, thyroid disease, breast cancer, s/p mastectomy, severe osteo arthritis, constipation, dementia, hypertension, Problems Medical Problems: (1) Anemia Status: Acute (2) FTT (failure to thrive) in adult Status: Acute (3) Generalized weakness Status: Acute Brief Hospital Course Allergies Allergies Coded Allergies Type Severity Reaction Last Updated Verified amoxicillin trihydrate Allergy Intermediate Hives 01/23/16 Yes metronidazole Allergy Intermediate Nausea and Vomiting 01/23/16 Yes potassium clavulanate Allergy Intermediate Hives 01/23/16 Yes ranitidine Allergy Intermediate 07/02/17 Yes Vital Signs Vital Signs Date Time Temp Pulse Resp B/P (MAP) Pulse Ox O2 Delivery O2 Flow Rate FiO2 04/23/21 08:00 Room Air 04/23/21 07:46 98.3 66 16 130/70 (90) 100 98.3 Lab Results Laboratory Tests Test 04/21/21 16:50 04/23/21 09:10 Urine Collection Type Unknown Urine Color Yellow Urine Clarity Clear Urine pH 5.5 (<5.0-8.0) Urine Specific [place] >=1.030 (1.000-1.030) Urine Protein 30 mg/dL (NEG-TRACE) Urine Glucose (UA) Negative mg/dL (NEG) Urine Ketones (Stick) Trace mg/dL (NEG) Urine Blood Negative (NEG) Urine Nitrite Negative (NEG) Urine Bilirubin Small (NEG) Urine Urobilinogen Dipstick 0.2 mg/dL (0.2 mg/dL) Urine Leukocyte Esterase Negative (NEG) Urine RBC Occ /HPF (0-2) Urine WBC Occ /HPF (0-4) Urine Squamous Epithelial Cells Many /LPF Urine Amorphous Sediment Present /HPF Urine Bacteria Few /HPF (0-FEW) Urine Mucus Mod /LPF SARS-CoV-2 Antigen (Rapid) Negative (NEGATIVE) Laboratory Tests Test 04/23/21 09:10 SARS-CoV-2 Antigen (Rapid) Negative (NEGATIVE) Brief Hospital Course Ms. Landeros is a 86 old female, admit with falls risk, weakness, could not stand, leg weakness and leg pain, shoulder pain, limited ROM shoulders pt and OT eval needs skilled refused Physiatry eval, declined intervention Discharge Information Condition at Discharge: Improved Follow Up: Weeks Disposition/Orders: D/C to Another Facility Scheduled Lactobacillus Rhamnosus Gg (Culturelle) 1 Each Cap.sprink, 1 CAP PO BID for Diarrhea for 14 Days, #28 Prescribed by: IZZY ZEE MD on 12/31/20 1421 Last Action: Continued on 04/20/212028 by CASSIE LISA RN Levothyroxine Sodium (Synthroid) 75 Mcg Tablet, 75 MCG PO DAILY07, #30 Prescribed by: WILBER TIERNEY on 11/21/15 1323 Last Action: Continued on 04/20/212028 by CASSIE LISA RN Nebivolol Hcl (Bystolic) 10 Mg Tablet, 10 MG PO DAILY for HTN, (Reported) Entered as Reported by: SANDI ELMORE on 12/23/1850 Last Action: Reviewed on 04/20/211736 by GREY STEINBERG RN Olmesartan Medoxomil (Olmesartan Medoxomil) 40 Mg Tablet, 40 MG PO DAILY for htn, (Reported) Entered as Reported by: ROCIO JOHNSON RN on 12/26/20 0957 Last Action: Reviewed on 04/20/211736 by GREY STEINBERG RN Omeprazole (Omeprazole) 20 Mg Tablet.dr, 1 TAB PO HS for HEARTBURN / GAS, (Reported) Entered as Reported by: YANIQUE FERNANDEZ on 10/10/14 0949 Last Action: Converted on 04/20/212028 by CASSIE LISA RN Sennosides/Docusate Sodium (Stool Softener-Laxative Tab) 1 Each Tablet, 1 EACH PO PRN DAILY, #1 Prescribed by: WILBER TIERNEY on 01/29/16 0828 Last Action: Continued on 04/20/212028 by CASSIE LISA RN Tamoxifen Citrate (Tamoxifen Citrate) 20 Mg Tablet, 1 TAB PO DAILY for ESTROGEN, #30 Ref 5 (Reported) Entered as Reported by: SANDI ELMORE on 12/23/1850 Last Action: Converted on 04/20/212028 by CASSIE LISA RN Scheduled PRN Acetaminophen (Mapap) 325 Mg Tablet, 650 MG PO PRN Q6HRS PRN for MILD PAIN / TEMP, #1 Ref 0 Prescribed by: WILBER TIERNEY on 01/29/16827 Last Action: Reviewed on 04/20/211736 by GREY STEINBERG, RN Hydrocodone Bit/Acetaminophen (Hydrocodone-Apap 7.5-325 ) 1 Tab Tablet, 1 TAB PO PRN Q6HRS PRN for PAIN, #30 Ref 0 Prescribed by: FAISAL BROWN on 04/23/21 1131 Polyethylene Glycol 3350 (Polyethylene Glycol 3350) 17 Gm Powd.pack, 17 GM PO DAILY PRN for CONSTIPATION, #1 Prescribed by: WILBER TIERNEY on 01/29/16827 Last Action: Continued on 04/20/212028 by CASSIE LISA, JERMAN Discontinued Medications Cefdinir (Cefdinir) 300 Mg Capsule, 300 MG PO BID for Cellulitis for 7 Days, #14 Prescribed by: IZZY ZEE MD on 12/31/20 1421 Linezolid (Zyvox) 600 Mg Tablet, 600 MG PO BID for Cellulitis for 7 Days, #14 Prescribed by: IZZY ZEE MD on 12/31/20 1421 Nystatin (Nystatin) 100,000 Unit/1 Ml Oral.susp, 5 ML SWSW [id number] for Thrush fo r 5 Days Prescribed by: IZZY ZEE MD on 12/31/20 1421 Patient Instructions Patient Instructions > 39 minutes face to face x2 she had refused PT and OT, and I strongly advised her to proceed, risk of DC home if unwilling to participate in therapy Justicifation of Admission Dx: Justifications for Admission: Justification of Admission Dx: Yes FAISAL BROWN MD Apr 23, 2021 11:35
[2021-04-23 11:44] VITALS: BP 135/68
--- NOTE | 2021-04-23 11:45 | NUR ---
SW following. Discussed with RN, pt accepted at [facility]. [facility] requested transportation for 1300 - arranged with [facility] transport. RN notified. SW will continue to follow.
[2021-04-23] MEDS ORDERED: WITC1MED TP (11:59)
[2021-04-23] MEDS ORDERED: PHENYLEPH/MINERAL OIL/PETROLAT RECTAL OINTMENT TUBE. RC PRN (12:00)
[2021-04-23] MEDS ORDERED: oxyCODONE IR 5 MG TABLET PO ONE (12:00)
--- NOTE | 2021-04-23 13:07 | NUR ---
Pt was read discharge packet and had no comments/concerns. Pt's IV was taken out, pt was stable when leaving the unit.
== END 2021-04-23 13:00 | DRG 812 ==
LOC: ER 17:22 → 6 SOUTH 21:10 → OBSVTOIN 04-20 22:27
PROVIDERS: ADMIT Internal Medicine; ATTEND Internal Medicine
DX: D64.9 Anemia, unspecified (principal); Z68.1 Body mass index [BMI] 19.9 or less, adult; R62.7 Adult failure to thrive; E07.9 Disorder of thyroid, unspecified; E78.5 Hyperlipidemia, unspecified; F03.90 Unspecified dementia, unspecified severity, without behavioral disturbance, psychotic disturbance, mood disturbance, and anxiety; I10 Essential (primary) hypertension; K59.00 Constipation, unspecified; M19.90 Unspecified osteoarthritis, unspecified site; Z82.49 Family history of ischemic heart disease and other diseases of the circulatory system; Z83.3 Family history of diabetes mellitus; Z85.3 Personal history of malignant neoplasm of breast; Z87.891 Personal history of nicotine dependence; Z90.12 Acquired absence of left breast and nipple; Z90.711 Acquired absence of uterus with remaining cervical stump; Z88.8 Allergy status to other drugs, medicaments and biological substances; Z20.822 Contact with and (suspected) exposure to COVID-19; Z90.710 Acquired absence of both cervix and uterus
CPT/HCPCS: 36415; 70450; 71045; 72170; 80053; 81001; 83735; 84484; 85025; 87426; 93005; G0378; G0379; U0003; U0005; 97110-GP; 97530-GO; 97530-GP; 97535-GO; 99285-25

== ENCOUNTER 2022-02-12 10:50 | Emergency (ER) | payer MEDICARE, OTHER ==
[~2022-02-12] VITALS: Ht 152.4 cm; Wt 47.2 kg
[~2022-02-12 10:50] MED LIST changes: -CLIN150C15 PO; +CLIN150C16 PO; -LEVO500T8 PO; +LEVO500T9 PO; +POTA-116 PO; +POTA-121 PO; -POTA10TA12 PO; -POTA20TA4 PO; +WITC1MED TP
--- NOTE | 2022-02-12 11:03 | PHYS DOC ---
Past Medical History Past Medical History: Arthritis, Cancer, Constipation, Dementia, Hypertension, Other Additional Past Medical Histor: IRREGULAR HEARTBEAT, PROLAPSED BLADDER, ULCERS, THYROID DZ Past Surgical History: Other Additional Past Surgical Histo: PARTIAL HYSTERECTOMY,RECENT BLADDER SLING SURGERY,L BREAST MASTECTOMY Smoking Status: Never Smoker Alcohol Use: None Drug Use: None General Adult HPI: HPI: Patient is a 87 year old female brought in by EMS [facility] for evaluation of reported chest pain. However, the patient adamant denies having any chest pain at all. The patient's daughter arrives with her as well, and reportedly the patient complained of chest pain. The patient has no recollection of this. She is complaining about left lateral neck pain. She indicates that she has had the same pain previously. The patient denies shortness of breath. She denies abdominal pain. She denies vomiting. She has dementia, she is an incredibly poor historian, she is also hearing impaired, but overall it is very difficult to obtain any meaningful or consistent information from her. The patient's daughter reports no acute mental status changes, she is behaving at her baseline. Patient has bilateral lower extremity swelling, which has been present for quite some time. She is currently being treated for wound on her left lower leg/ankle, she is been prescribed Keflex for her cellulitis. The patient has been refusing antibiotics. The patient is her own power of banking attorney. No other reported complaints. Review of Systems: Review of Systems: Significantly limited review of systems, secondary to dementia. See HPI. Heart Score: C/O Chest Pain: No Risk Factors: Risk Factors: DM, Current or recent (<one month) smoker, HTN, HLP, family history of CAD, obesity. Risk Scores: Score 0 - 3: 2.5% MACE over next 6 weeks - Discharge Home Score 4 - 6: 20.3% MACE over next 6 weeks - Admit for Clinical Observation Score 7 - 10: 72.7% MACE over next 6 weeks - Early Invasive Strategies Allergies: Allergies: Allergies Coded Allergies Type Severity Reaction Last Updated Verified amoxicillin trihydrate Allergy Intermediate Hives 01/23/16 Yes metronidazole Allergy Intermediate Nausea and Vomiting 01/23/16 Yes potassium clavulanate Allergy Intermediate Hives 01/23/16 Yes ranitidine Allergy Intermediate 07/02/17 Yes Physical Exam: PE: Constitutional: Frail, thin, elderly, chronically ill-appearing, nontoxic, no acute distress HENT: Normocephalic, atraumatic, no facial or oral swelling. Mucous membranes are moist. Eyes: Sclera are anicteric. No evidence of periorbital edema, erythema or contusion. Neck: Trachea is midline. No meningismus. No midline tenderness or step-offs. Left lateral trapezius soft tissue muscle tenderness. No crepitus or subcutan eous emphysema. No warmth or erythema. Cardiovascular:Heart rate regular rhythm, +2 radial and +2 posterior tibial pulses bilaterally. Lungs & Thorax: Equal chest rise, no acute chest wall deformity, marked kyphosis limits exam somewhat, mildly diminished breath sounds in bilateral bases. No wheezing, stridor, rales or rhonchi. No evidence of respiratory distress. Abdomen: Abdomen is soft, nondistended, nontender to palpation. No palpable pu lsatile mass. No evidence of abdominal or flank trauma. Skin: Warm, dry, superficial wound/superficial ulcerative lesion on the medial left proximal ankle area. There is very minimal surrounding erythema. No tenderness. No significant warmth. No fluctuance or drainage, no bleeding Back: Marked kyphosis. No midline tenderness or step-offs. No acute deformity noted. No tenderness noted Extremities: Bilateral, symmetric lower leg and ankle and pedal edema. No calf tenderness. Superficial ulcerative lesion on her left lower leg/ankle area. No tenderness to this area. Very minimal surrounding erythema, no warmth, no fluctuance, no crepitus or subcutaneous emphysema. Pelvis is stable. No bony tenderness. Neurologic: Patient is awake, alert, and oriented to person only, this is her baseline. She is not oriented to date, time or to specific location. She moves all 4 extremities equally. She localizes the pain. No facial asymmetry. Sensation is grossly intact. Speech is fluent. Psychologic: Affect is jovial, pleasant, overall cooperative EKG: EKG: EKG is interpreted at 1108 Rhythm is sinus Rate is 60 bpm Cl[place]on is normal No STEMI Radiology/Procedures: Radiology/Procedures: IMAGING REPORT Signed PATIENT: KYRIE ROGEL BACCOUNT: [id number] : 1935 LOCATION: ER AGE: 87 SEX: F EXAM STATUS: REG ER ORD. PHYSICIAN: CONCHIS BAKER DO REASON: chest pain PROCEDURE: PORTABLE CHEST 1V INDICATION: Reason: chest pain / Spl. Instructions: / History: COMPARISON: April 19, 2021 FINDINGS: Single view of chest obtained. Deformity of the right proximal humerus with resorption of the humeral head with sclerosis in the area. This has a chronic appearance. Calcific atherosclerosis of the thoracic aorta is again seen with prominent aortic knob which is similar to prior cardiac silhouette is not enlarged. Degenerative changes throughout the spine. Disorganized appearance of the pulmonary markings bilaterally most severe at the upper lungs again seen. Mild patchy opacity in the bilateral lungs IMPRESSION: * Mild patchy opacity of the lungs bilaterally. A portion of this is likely chronic in nature from chronic lung disease but superimposed early infiltrate is not excluded given this finding. Electronically signed by: Sachin Truong MD (02/12/2022 12:27 PM) [id number] DICTATED and SIGNED BY: SACHIN TRUONG MD DATE: 02/12/22 1224 Course & Med Decision Making: Course & Med Decision Making Pertinent Labs and Imaging studies reviewed. (See chart for details) The patient's only complaint is the left-sided neck pain, she requested something to help with his pain, it appears that she usually takes hydrocodone, though it does not appear that she has been given any today, so I ordered a dose of [place] here. She is resting comfortably, reports improvement in pain. She continues to deny any chest pain. I discussed the findings, differential diagno sis and plan of care with the patient and her daughter. The patient is anxiously waiting discharge home, she does not wish to stay for any further evaluation or treatment. ED work-up does not demonstrate any acute life- threatening process. I discussed that she should follow-up with her PCP, continue local wound care for her left lower extremity wound, I do recommend she take the prescribed antibiotics as directed as well. Strict return precautions are given. Myke Disclaimer: Myke Disclaimer: This electronic medical record was generated, in whole or in part, using a voice recognition dictation system. Departure Departure Impression: Primary Impression: Neck pain on left side Disposition: [facility] Condition: STABLE Referrals: WILBER TIERNEY MD (PCP) Patient Instructions: Muscle Strain, Soft Tissue Injury of the Neck Additional Instructions: Return to the ER for chest pain, shortness of breath, abdominal pain, nausea and vomiting, if you develop any more severe neck pain. If you are acutely injured or sustained any trauma or for any other concerns. Please take the prescribed antibiotics at your care facility. Allow the nurses to continue local wound care of your left lower leg wound. Follow-up with your primary care doctor. CONCHIS BAKER DO Feb 12, 2022 11:03
[2022-02-12 11:32] LABS: BASO # 0.1 x10^3/uL (0.0-0.2); BASO % 1 % (0-3); EOS # 0.1 x10^3/uL (0.0-0.7); EOS % 3 % (0-3); HEMATOCRIT 27.6 % (36.0-47.0); HEMOGLOBIN 8.8 g/dL (12.0-15.5); LYMPH # 1.3 x10^3/uL (1.0-4.8); LYMPH % 22 % (24-48); MEAN CORPUSCULAR HEMOGLOBIN 29 pg (25-35); MEAN CORPUSCULAR HGB CONC 32 g/dL (31-37); MEAN CORPUSCULAR VOLUME 90 fL (79-100); MONO # 0.6 x10^3/uL (0.0-1.1); MONO % 11 % (0-9); NEUT # 3.7 x10^3/uL (1.8-7.7); NEUT % 63 % (31-73); PLATELET COUNT 216 x10^3/uL (140-400); RED BLOOD COUNT 3.06 x10^6/uL (3.50-5.40); RED CELL DISTRIBUTION WIDTH 14.2 % (11.5-14.5); WHITE BLOOD COUNT 5.9 x10^3/uL (4.0-11.0)
[2022-02-12 11:45] LABS: CALCIUM 9.4 mg/dL (8.5-10.1); CREATININE 1.4 mg/dL (0.6-1.0); GFR 43.2; POTASSIUM 5.3 mmol/L (3.5-5.1)
[2022-02-12] MEDS ORDERED: HYDROcodone/APAP 5/325MG 1 TAB TABLET PO ONE (11:45)
[2022-02-12 11:51] LABS: ALBUMIN 3.9 g/dL (3.4-5.0); ALBUMIN/GLOBULIN RATIO 1.1 (1.0-1.7); MAGNESIUM 2.4 mg/dL (1.8-2.4); TOTAL BILIRUBIN 0.5 mg/dL (0.2-1.0); TOTAL PROTEIN 7.6 g/dL (6.4-8.2)
[2022-02-12 12:19] LABS: BACTERIA,URINE FEW /HPF (0-FEW); RBC,URINE 0 /HPF (0-2); YEAST,URINE PRESENT /HPF
--- NOTE | 2022-02-12 12:30 | RAD ---
INDICATION: Reason: chest pain / Spl. Instructions: / History: COMPARISON: April 19, 2021 FINDINGS: Single view of chest obtained. Deformity of the right proximal humerus with resorption of the humeral head with sclerosis in the are a. This has a chronic appearance. Calcific atherosclerosis of the thoracic aorta is again seen with prominent aortic knob which is grady lar to prior cardiac silhouette is not enlarged. Degenerative changes throughout the spine. Disorgani zed appearance of the pulmonary markings bilaterally most severe at the upper lungs again seen. Mild patchy opacity in the bilateral lungs IMPRESSION: * Mild patchy opacity of the lungs bilaterally. A portion of this is likely chronic in nature from c hronic lung disease but superimposed early infiltrate is not excluded given this finding. Electronically signed by: Ron Mcfarland MD (02/12/2022 12:27 PM) [id number]
[2022-02-12 13:00] VITALS: BP 141/80
--- NOTE | 2022-02-13 07:25 | EKG ---
[facility] [address] [place] [address] Test Date: 2022-02-12 Test Time: 11:01:16 Pat Name: KYRIE ROGEL Department: Room: Gender: F Resort Manager: : 1935 Requested By: CONCHIS BAKER Order Number: [id number] Reading MD: Eze De La Cruz Measurements Intervals [place] Rate: 60 P: -31 WI: 154 QRS: 13 QRSD: 72 T: 108 QT: 456 QTc: 461 Interpretive Statements SINUS RHYTHM T ABNORMALITY IN HIGH LATERAL LEADS Electronically Signed On 02-15-2022 21:37:16 CDT by Eze De La Cruz
== END 2022-02-12 14:10 | disposition home or self-care (01) ==
LOC: ER 10:50
DX: M54.2 Cervicalgia (principal); R07.89 Other chest pain; F03.90 Unspecified dementia, unspecified severity, without behavioral disturbance, psychotic disturbance, mood disturbance, and anxiety; I10 Essential (primary) hypertension; Z88.1 Allergy status to other antibiotic agents; Z88.8 Allergy status to other drugs, medicaments and biological substances
CPT/HCPCS: 36415; 71045; 80053; 81001; 82550; 83690; 83735; 83880; 84484; 85025; 93005; 99285-25

== ENCOUNTER 2022-02-20 15:05 | Emergency (ER) | payer MEDICARE, OTHER ==
[~2022-02-20] VITALS: Ht 152.4 cm; Wt 48.0 kg
[~2022-02-20 15:05] MED LIST changes: -OMEP20TA8 PO; +OMEP20TA91 PO
[2022-02-20] MEDS ORDERED: IV NORMAL SALINE 1000ML BAG 1,000 ML IV ONE (15:15)
--- NOTE | 2022-02-20 15:15 | PHYS DOC ---
Past Medical History Past Medical History: Arthritis, Cancer, Constipation, Dementia, Hypertension, Other Additional Past Medical Histor: IRREGULAR HEARTBEAT, PROLAPSED BLADDER, ULCERS, THYROID DZ Past Surgical History: No Surgical History Additional Past Surgical Histo: PARTIAL HYSTERECTOMY,RECENT BLADDER SLING SURGERY,L BREAST MASTECTOMY Smoking Status: Never Smoker Alcohol Use: None Drug Use: None Adult General Chief Complaint Chief Complaint: PSYCH EVALUATION HPI HPI Patient is a 87 year old female presenting to the emergency department for evaluation of reported hallucinations. She also reportedly had abnormal labs that were drawn yesterday and they wanted her seen for this as well. Daughter is present and provides history as patient is alert and oriented x3 but is very hard of hearing and does not answer questions due to her difficulty hearing some of the questions. Reportedly she may be more confused than her baseline and is having hallucinations and they wanted her to be seen here from a geriatric psychiatry perspective. It appears the patient has a [facility] psych consultation with her paperwork or psychotherapy was recommended. It appears she had a creatinine of 2.0 and a BUN of 53 drawn yesterday whereas her prior labs showed she had a creatinine of 0.9. I asked the patient if she has been eating and drinking if she is thirsty and wants to drink something now and she shook her head no. She is in no acute distress with normal vital signs. Review of Systems Review of Systems Unable to obtain due to confusion All other systems were reviewed and found to be within normal limits, except as documented in this note. Current Medications Current Medications Current Medications Medications (Trade) Dose Ordered Sig/Taj Start Time Stop Time Status Last Admin Dose Admin Sodium Chloride 1,000 ml @ 1,000 mls/hr 1X ONCE 02/20/22 15:15 02/20/22 16:14 DC Allergies Allergies Allergies Coded Allergies Type Severity Reaction Last Updated Verified amoxicillin trihydrate Allergy Intermediate Hives 02/12/22 Yes metronidazole Allergy Intermediate Nausea and Vomiting 02/12/22 Yes potassium clavulanate Allergy Intermediate Hives 02/12/22 Yes ranitidine Allergy Intermediate 02/12/22 Yes Physical Exam Physical Exam Constitutional: Chronically ill-appearing female in no acute distress HENT: Normocephalic, atraumatic, bilateral external ears normal, oropharynx moist, no oral exudates, nose normal. [] Eyes: PERRLA, EOMI, conjunctiva normal, no discharge. [] Neck: Normal range of motion, no tenderness, supple, no stridor. [] Cardiovascular:Heart rate regular rhythm, no murmur [] Lungs & Thorax: Bilateral breath sounds clear to auscultation [] Abdomen: Bowel sounds normal, soft, no tenderness, no masses, no pulsatile masses. [] Skin: Warm, dry, no erythema, no rash. [] Back: No tenderness, no CVA tenderness. [] Extremities: No tenderness, no cyanosis, no clubbing, ROM intact, no edema. [] Neurologic: Alert and oriented X 3, will follow commands and move extremities Current Patient Data Vital Signs Vital Signs Date Time Temp Pulse Resp B/P (MAP) Pulse Ox O2 Delivery O2 Flow Rate FiO2 02/20/22 15:05 98.2 63 16 144/63 (90) 97 98.2 EKG EKG Sinus rhythm at 71 bpm with normal axis no ST elevation or depression normal T waves with prolonged QT at 440 ms. Radiology/Procedures Radiology/Procedures [] Course & Med Decision Making Course & Med Decision Making Patient presenting for worsened mental status with hallucinations in addition she is dehydrated. I will check labs treat with IV fluids and reassess. I read patient's psychotherapy progress note from 21 February Brittny, PhD that was performed on February 04, 2022 and she has psychotherapeutic techniques listed including supportive psychotherapy stress management behavioral techniques and crisis management. Quoting her last progress note it says "discussed current symptoms including worsening delusional thinking and behaviors with nursing staff. Discussed patient refusal for inpatient care and steps to assess for competency to make these decisions. Patient is requiring more care and is more appropriate for long-term care but also could benefit from psychiatric hospitalization due to current symptoms." I read this assesment. With the daughter who was present and she verbalized understanding and I asked if they could get DURABLE POWER OF OCCUPATIONAL HEALTH COORDINATOR over the patient and they said they have tried but patient does not want anyone to be her DURABLE POWER OF OCCUPATIONAL HEALTH COORDINATOR. Patient has capacity to make her own decisions. I had extensive discussion with her primary care provider at [facility] Dr. Mendoza Miner in addition her daughter who also called the patient's son as well. The patient's daughter and son agreed that she is able to make her own medical decisions and that we had no grounds to sedate her or assault her with needles against her will. I explained the frustration from both there perspective and our perspective as we cannot do the things we want to but the patient is refusing labs and IVs and Covid testing as well as CT and EKG. Dr. Mcdonald stated if she is making her own decisions and refusing care here that we can [facility] and they will continue to care for her and then make further planning. Patient discharged in stable condition with normal vital signs. I told the daughter that they can bring her back whenever they want to and if there is anything changes they are always welcome to come back to the emergency department she verbalized understanding and agreed with the care and plan. Daughter did express that she feels that patient may be ready to go as the patient says that she is tired. Dragon Disclaimer Dragon Disclaimer This electronic medical record was generated, in whole or in part, using a voice recognition dictation system. Departure Departure Impression: Primary Impression: Failure to thrive in adult Additional Impressions: Renal insufficiency Dehydration Disposition: HOME / SELF CARE / HOMELESS Condition: STABLE Referrals: MENDOZA YIN MD (PCP) Patient Instructions: Failure to Thrive, Adult Problem Qualifiers ANIYAH PARSONS DO Feb 20, 2022 15:15
--- NOTE | 2022-02-20 15:37 | EKG ---
[facility] [address] [place] [address] Test Date: 2022-02-20 Test Time: 15:16:14 Pat Name: KYRIE ROGEL Department: Room: Gender: F Business Banking Sales Assistant: : 1935 Requested By: ANIYAH PARSONS Order Number: [id number] Reading MD: Eze De La Cruz Measurements Intervals [place] Rate: 71 P: 43 LA: 172 QRS: 33 QRSD: 74 T: 59 QT: 440 QTc: 484 Interpretive Statements SINUS RHYTHM VENTRICULAR PREMATURE COMPLEX(ES) T ABNORMALITY IN ANTERIOR LEADS LATERAL LEADS PROLONGED QT Electronically Signed On 02-28-2022 14:20:50 CDT by Eze De La Cruz
[2022-02-20 16:57] VITALS: BP 165/81
== END 2022-02-20 17:20 | disposition home or self-care (01) ==
LOC: ER 15:05
DX: R62.7 Adult failure to thrive (principal); Z68.20 Body mass index [BMI] 20.0-20.9, adult; N28.9 Disorder of kidney and ureter, unspecified; E86.0 Dehydration; I10 Essential (primary) hypertension; F03.90 Unspecified dementia, unspecified severity, without behavioral disturbance, psychotic disturbance, mood disturbance, and anxiety; Z88.1 Allergy status to other antibiotic agents; Z88.8 Allergy status to other drugs, medicaments and biological substances; Z88.3 Allergy status to other anti-infective agents
CPT/HCPCS: 93005; 99285-25